=== PATIENT | female | born 1955 | race Caucasian/White ===

== ENCOUNTER 2016-10-26 11:00 | Outpatient (CLI) | payer MEDICAID | END 2016-10-26 11:01 | disposition home or self-care (01) | DX: I10 Essential (primary) hypertension (principal); E03.9 Hypothyroidism, unspecified; K25.3 Acute gastric ulcer without hemorrhage or perforation ==

== ENCOUNTER 2016-12-10 09:09 | Outpatient (CLI) | payer MEDICAID ==
--- NOTE | 2016-12-10 11:59 | XRAY Report ---
UPPER GI SERIES: 12/10/2016 CLINICAL HISTORY: Possible hiatal hernia with reflux. FINDINGS: Air-contrast upper GI series was done. Esophagus demonstrated normal esophageal motility. No significant hiatal hernia was noted. No gastroesophageal reflux was seen. Stomach appears normal without ulcerations or masses. Duodenum including the duodenal bulb and descending portion of the duodenum appear normal. FLUORO TIME: 2 minutes, 54 seconds. 26 images were obtained. IMPRESSION: NORMAL EXAMINATION. JOB #: [id number] EXT JOB #:[id number]
[2016-12-10] MEDS ORDERED: BARIUM SULFATE 135 ML BOTTLE PO ONE (14:23)
[2016-12-10] MEDS ORDERED: BARIUM SULFATE 176 GM BOTTLE PO ONE (14:23)
== END 2016-12-10 09:10 | disposition home or self-care (01) ==
LOC: DI 09:09
PROVIDERS: ATTEND Nurse Practitioner Family
DX: K44.9 Diaphragmatic hernia without obstruction or gangrene (principal); K21.9 Gastro-esophageal reflux disease without esophagitis
CPT/HCPCS: 74246; A9270

== ENCOUNTER 2017-01-11 11:52 | Outpatient (CLI) | payer MEDICAID | END 2017-01-11 11:53 | disposition home or self-care (01) | LOC: LAB.S 11:52 | PROVIDERS: ATTEND Nurse Practitioner Family | DX: K58.9 Irritable bowel syndrome, unspecified (principal) | CPT/HCPCS: 36415; 83516 ==

== ENCOUNTER 2017-02-06 08:00 | Outpatient (CLI) | payer MEDICAID | END 2017-02-06 23:59 | disposition home or self-care (01) | LOC: LAB.R 08:00 | PROVIDERS: ATTEND Nurse Practitioner Family | DX: R19.7 Diarrhea, unspecified (principal) | CPT/HCPCS: 87177; 87209 ==

== ENCOUNTER 2017-02-09 08:00 | Outpatient (CLI) | payer MEDICAID | END 2017-02-09 23:59 | disposition home or self-care (01) | LOC: LAB.R 08:00 | PROVIDERS: ATTEND Nurse Practitioner Family | DX: R19.7 Diarrhea, unspecified (principal) | CPT/HCPCS: 87177; 87209 ==

== ENCOUNTER 2017-02-12 06:00 | Outpatient (CLI) | payer MEDICAID | END 2017-02-12 06:01 | disposition home or self-care (01) | LOC: LAB.R 06:00 | PROVIDERS: ATTEND Nurse Practitioner Family | DX: R19.7 Diarrhea, unspecified (principal) | CPT/HCPCS: 87045; 87046; 87177; 87205; 87209 ==

== ENCOUNTER 2017-07-29 15:19 | Outpatient (CLI) | payer MEDICAID ==
--- NOTE | 2017-07-30 10:42 | XRAY Report ---
DATE OF SERVICE: 07/29/2017 COMPLETE LUMBAR SPINE: 07/29/2017 CLINICAL INDICATION: Acute low back pain. FINDINGS: AP, lateral, oblique, and coned down views of the lumbar spine are compared to previous films of 04/12/2007. There has been interval development of mild degenerative changes from L1 through L5, with stable degenerative changes at L5-S1. Moderate facet arthropathy is present. There is no evidence of interval compression fracture or subluxation. IMPRESSION: DEGENERATIVE DISK AND FACET DISEASE. NO EVIDENCE OF INTERVAL FRACTURE. TD: 07/30/2017 11:41
== END 2017-07-29 15:20 | disposition home or self-care (01) ==
LOC: DI 15:19
PROVIDERS: ATTEND Nurse Practitioner Family
DX: M51.36 Other intervertebral disc degeneration, lumbar region (principal); M47.896 Other spondylosis, lumbar region; M47.897 Other spondylosis, lumbosacral region
CPT/HCPCS: 72110

== ENCOUNTER 2017-08-31 09:21 | Outpatient (CLI) | payer MEDICAID ==
--- NOTE | 2017-09-01 13:31 | Mammography Report ---
DIGITAL SCREENING MAMMOGRAM: 08/31/2017 CLINICAL INDICATION: A 61-year-old, for screening. COMPARISON: 10/2013, 02/2009. TECHNIQUE: Routine CC and MLO projections were obtained of the breasts. Bilateral laterally exaggerated craniocaudal views. FINDINGS: The breasts demonstrate heterogeneously dense fibroglandular parenchyma bilaterally. In the left upper outer central breast, there is a possible new grouping of calcifications. Further evaluation with spot magnification views is recommended. No mammographically suspicious findings are appreciated in the right breast. IMPRESSION: INCOMPLETE EXAMINATION. RECOMMENDATION: ADDITIONAL EVALUATION OF THE LEFT BREAST ABOVE. BIRADS CATEGORY 0-INCOMPLETE. STANDARD QUALIFYING STATEMENTS: 1. This examination was reviewed with the aid of Computer-Aided Detection (CAD). 2. A negative or benign imaging report should not delay biopsy if clinically suspicious findings are present. Consider surgical consultation if warranted. More than 5% of cancers are not identified by imaging. 3. Dense breasts may obscure an underlying neoplasm. TD: 09/01/2017 13:30
== END 2017-08-31 09:22 | disposition home or self-care (01) ==
LOC: DI.S 09:21
PROVIDERS: ATTEND Nurse Practitioner Family
DX: Z12.31 Encounter for screening mammogram for malignant neoplasm of breast (principal); R92.8 Other abnormal and inconclusive findings on diagnostic imaging of breast
CPT/HCPCS: 77067

== ENCOUNTER 2017-09-09 13:14 | Outpatient (CLI) | payer MEDICAID ==
--- NOTE | 2017-09-09 17:36 | Ultrasound Report ---
LEFT BREAST ULTRASOUND: 09/09/2017 CLINICAL INDICATION: Abnormal mammogram. TECHNIQUE: Real-time scanning was performed with district representative static images obtained. FINDINGS: Ultrasound of the left outer breast was performed. At the 3 o'clock position, approximately 3 cm from the nipple, there is a 1.0 x 0.5 x 1.0 cm nodule, with microcalcifications centrally, correlating with the mammographic abnormality. The appearance is suspicious. Biopsy is recommended. The nodule appears to be amenable to ultrasound-guided core needle biopsy. IMPRESSION: SUSPICIOUS SOLID NODULE WITH CALCIFICATIONS, CORRELATING WITH THE MAMMOGRAPHIC ABNORMALITY. RECOMMENDATIONS: Biopsy. The nodule appears amenable to ultrasound-guided core needle biopsy. BIRADS category 4 suspicious abnormality. Results and recommendations discussed with the patient at the time of the procedure, and discussed in person with ARJUN Oshea on 09/09/2017. Biopsy is scheduled for 09/13/2017 at 9:45 a.m. TD: 09/09/2017 17:36
--- NOTE | 2017-09-09 17:44 | Mammography Report ---
DIGITAL DIAGNOSTIC LEFT MAMMOGRAM: 09/09/2017 CLINICAL INDICATION: Calcifications left outer breast on screening. TECHNIQUE: Left true lateral and spot magnification views. COMPARISON: 08/31/2017, 10/27/2013, 03/09/2009, 08/22/2007. FINDINGS: The left breast again demonstrates heterogeneously dense fibroglandular parenchyma. In the left outer anterior breast, there is a group of calcifications. On magnification views, they appear mildly pleomorphic, and there appears to be an associated nodule on one projection, but this is not definitely seen on the second spot magnification view. Please also refer to left breast ultrasound of the same day. IMPRESSION: SUSPICIOUS NODULE WITH CALCIFICATIONS ON ULTRASOUND, CORRELATING WITH THE MAMMOGRAPHIC ABNORMALITY. RECOMMENDATION: Biopsy. The nodule appears to be amenable to ultrasound-guided core needle biopsy. BIRADS category 4 suspicious abnormality. Results and recommendations discussed with the patient at the time of the examination, and discussed in person with ARJUN Oshea on 09/09/2017. Biopsy is scheduled for 09/13/2017 at 9:45 a.m. STANDARD QUALIFYING STATEMENTS 1. This examination was reviewed with the aid of Computed-Aided Detection (CAD). 2. A negative or benign imaging report should not delay biopsy if clinically suspicious findings are present. Consider surgical consultation if warranted. More than 5% of cancers are not identified by imaging. 3. Dense breasts may obscure an underlying neoplasm. TD: 09/09/2017 17:43
== END 2017-09-09 13:15 | disposition home or self-care (01) ==
LOC: DI 13:14
PROVIDERS: ATTEND Nurse Practitioner Family
DX: R92.0 Mammographic microcalcification found on diagnostic imaging of breast (principal); N63.21 Unspecified lump in the left breast, upper outer quadrant; N63.23 Unspecified lump in the left breast, lower outer quadrant
CPT/HCPCS: 76642

== ENCOUNTER 2017-09-13 09:36 | Outpatient (CLI) | payer MEDICAID ==
[2017-09-13] MEDS ORDERED: BUPIVACAINE 0.5%-EPI 1:200000 PF 10 ML VIAL SUBQ STA (11:00)
[2017-09-13] MEDS ORDERED: BUFFERED LIDOCAINE 10 ML SYRINGE IU ONE (11:15)
--- NOTE | 2017-09-13 12:06 | Ultrasound Report ---
ULTRASOUND-GUIDED CORE NEEDLE BIOPSY OF LEFT BREAST: 09/13/2017 CLINICAL INDICATION: Nodule with calcifications left outer breast. FINDINGS: Informed consent was obtained. Using standard aseptic technique, both 1% buffered lidocaine and Sensorcaine were injected into the left breast for local anesthesia. A small mina was made in the skin with a #11 blade. A 12-gauge Celero vacuum-assisted device was used to obtain three specimens. A Celero marker was placed into the biopsy cavity under ultrasound guidance. The patient was taken to a separate mammography machine, and a 2-view mammogram was performed. This documents approximately 2.5 cm clip migration from the biopsy bed. There is adequate conspicuity of residual calcifications at the biopsy bed to allow for future localization, if needed. The wound was dressed and ice applied. The patient was observed for approximately 15 minutes, then was discharged from [facility] in good condition following instructions on wound care and obtaining biopsy results. The tissue was sent for histologic analysis. IMPRESSION: ULTRASOUND-GUIDED BIOPSY OF THE LEFT BREAST. AN ADDENDUM WILL BE MADE TO THIS REPORT WHEN PATHOLOGY IS REVIEWED TO ESTABLISH CONCORDANCE. TD: 09/13/2017 11:58
[2017-09-13 15:17] VITALS: BP 159/61
== END 2017-09-13 09:37 | disposition home or self-care (01) ==
LOC: DI 09:36
PROVIDERS: ATTEND Nurse Practitioner Family
DX: C50.812 Malignant neoplasm of overlapping sites of left female breast (principal); Z17.0 Estrogen receptor positive status [ER+]
CPT/HCPCS: 19083

== ENCOUNTER 2017-11-05 13:37 | Outpatient (CLI) | payer MEDICAID ==
[2017-11-05] MEDS ORDERED: GADOBUTROL 7.5 MMOL/7.5 ML VIAL ONE (14:02)
[2017-11-05] MEDS ORDERED: GADOBUTROL 7.5 MMOL/7.5 ML VIAL IVP ONE (14:47)
--- NOTE | 2017-11-06 13:13 | MRI Report ---
MRI OF BILATERAL BREASTS WITH AND WITHOUT CONTRAST: 11/05/2017 INDICATION: Biopsy-proven left breast cancer. TECHNIQUE: Using a dedicated breast coil, axial precontrast STIR, T1, dynamic postcontrast, axial 3-D images, axial 3-D high resolution images, and post-contrast diffusion weighted images were obtained. 6 mL of Gadavist was administered intravenously. Post-processing with dynamic contrast enhancement analysis and multiplanar reformations were performed with [employer]. FINDINGS: The breasts demonstrate no background enhancement. RIGHT BREAST: There is no evidence of abnormal enhancement or mass lesion. Right axillary lymph nodes appear morphologically normal. LEFT BREAST: The biopsied nodule in the left lower outer central breast is seen on MRI, with enhancement measuring 1.6 x 1.1 x 0.8 cm. The nodule demonstrates rapid enhancement with washout kinetics. There is no evidence of skin, nipple, or chest wall involvement. Left axillary lymph nodes appear morphologically normal. As noted on the post-biopsy, mammogram, the biopsy marker is inferiorly displaced from the lesion. IMPRESSION: BIOPSY-PROVEN BREAST CANCER IN THE LEFT LOWER OUTER QUADRANT, MEASURING 1.6 CM MAXIMAL DIAMETER. NO EVIDENCE OF MULTIFOCAL OR MULTICENTRIC DISEASE. NO SKIN, NIPPLE, OR CHEST WALL INVOLVEMENT. RECOMMENDATIONS: Surgical treatment planning. BIRADS CATEGORY 6: KNOWN MALIGNANCY. The patient has been instructed to obtain results from Dr. Girard in 5 business days. COMMENT: Breast MRI is a highly sensitive examination, and has a cancer detection threshold down to approximately 5 mm; however, it only has moderate specificity. Although breast MRI has a high negative predictive value, appropriate clinical and mammographic followup are always necessary. MRI may miss less angiogenic tumors; therefore, it should not be used to avoid a biopsy which is otherwise clinically indicated. Normal appearing lymph nodes may contain microscopic tumor. Due to prone positioning, the described location of findings may differ from other modalities. TD: 11/06/2017 13:12
== END 2017-11-05 13:38 | disposition home or self-care (01) ==
LOC: DI 13:37
PROVIDERS: ATTEND Surgery
DX: C50.412 Malignant neoplasm of upper-outer quadrant of left female breast (principal); Z17.0 Estrogen receptor positive status [ER+]
CPT/HCPCS: 77059; A9585

== ENCOUNTER 2017-11-09 13:45 | Outpatient (CLI) | payer MEDICAID | END 2017-11-09 23:59 | LOC: RT 13:45 | PROVIDERS: ATTEND Surgery | DX: C50.412 Malignant neoplasm of upper-outer quadrant of left female breast (principal); Z17.0 Estrogen receptor positive status [ER+] | CPT/HCPCS: 93005 ==

== ENCOUNTER 2017-11-12 09:34 | Outpatient (CLI) | payer MEDICAID ==
[2017-11-12 17:46] LABS: HGB - HEMOGLOBIN 13.5 g/dL (12.0-16.0); MEAN CORPUSCULAR HEMOGLOBIN 32.8 pg (27.0-31.0); MEAN CORPUSCULAR HGB CONC 32.5 g/dL (32.0-36.0); MEAN CORPUSCULAR VOLUME 100.8 fL (81.0-99.0); MEAN PLATELET VOLUME 8.8 fL (7.9-10.8); RED BLOOD COUNT 4.13 10^6/uL (4.20-5.40); RED CELL DISTRIBUTION WIDTH 13.2 % (12.0-15.0); WHITE BLOOD COUNT 6.8 x10^3/uL (4.8-10.8)
[2017-11-12 18:29] LABS: BUN - BLOOD UREA NITROGEN 15 mg/dL (6-20); CALCIUM 8.6 mg/dL (8.5-10.3); CARBON DIOXIDE - CO2 26 mmol/L (21-32); CHLORIDE 100 mmol/L (101-111); CREATININE 0.7 mg/dL (0.4-1.0); GFR - MDRD 84 (>89); GLUCOSE 87 mg/dL (70-100); SODIUM 135 mmol/L (135-145)
== END 2017-11-12 09:35 | disposition home or self-care (01) ==
LOC: LAB.F 09:34
PROVIDERS: ATTEND Surgery
DX: I10 Essential (primary) hypertension (principal); E03.9 Hypothyroidism, unspecified; C50.412 Malignant neoplasm of upper-outer quadrant of left female breast; Z17.0 Estrogen receptor positive status [ER+]
CPT/HCPCS: 36415; 80048; 84443; 84481

== ENCOUNTER 2018-01-05 08:57 | Emergency (ER) | payer MEDICAID ==
[2018-01-05] MEDS ORDERED: DEXAMETHASONE 10 MG/ML VIAL PO STA (10:26)
[2018-01-05] MEDS ORDERED: KETOROLAC 60 MG/2 ML VIAL IM STA (10:26)
--- NOTE | 2018-01-05 10:41 | ED Physician Documentation ---
PD HPI Fall - Stated complaint Stated Complaint: GLF - Chief complaint Chief Complaint: General - History obtained from History obtained from: Patient - History of Present Illness Mechanism of injury: Tripped Fall distance: Standing position Where injury occurred: Home Timing - onset: Today Injury(ies) location: Chest, Back Quality of pain: Pain Associated symptoms: No: LOC, AMS, Amnesia, Seizures Symptoms improve with: Rest, Ice Worsens with: Movement, Palpation Contributing factors: No: Anticoagulated Similar symptoms before: Has not had sx before Recently seen: Surgery (mastectomy in November) - Additional information Additional information: 62-year-old female has a new beagle and she was switching leads to a shorter lead and the animal pulled her over against the cage and she was scraped by a dowel that was part of the cage. This was across her back on the left side she has a significant bruise to that area. She is complaining of some pain with any movement and she states that she was able to get into bed and sleep last night and woke up this morning very stiff. She is having some trouble getting a full deep breath because of this and standing up straight because of this. She has not had any nausea or vomiting she has not had any abdominal pain. Review of Systems Constitutional: denies: Fever Eyes: denies: Decreased vision Ears: denies: Ear pain Nose: denies: Congestion Throat: denies: Sore throat Cardiac: reports: Chest pain / pressure. denies: Palpitations, Pedal edema, Calf pain Respiratory: denies: Dyspnea, Cough GI: denies: Abdominal Pain, Nausea, Vomiting : denies: Dysuria, Frequency Skin: denies: Rash Musculoskeletal: reports: Back pain. denies: Neck pain PD PAST MEDICAL HISTORY - Past Medical History Cardiovascular: Hypertension, Arrhythmia Respiratory: Emphysema Endocrine/Autoimmune: HyPOthyroidism GI: None COMPUTATIONAL GENETICIST: Breast cancer : None Psych: Depression, Anxiety, Post traumatic stress disorder Musculoskeletal: Chronic back pain Derm: None - Past Surgical History Past Surgical History: Yes General: Colonoscopy /COMPUTATIONAL GENETICIST: Hysterectomy, Mastectomy, LEEP (Cervical surgery) HEENT: Tonsil/Adenoidectomy - Present Medications Home Medications: Ambulatory Orders Medication Instructions Recorded Confirmed Atenolol 50 mg ORAL 02/15/14 03/10/14 Citalopram Hydrobromide [Celexa] 20 mg PO 02/15/14 03/10/14 Levothyroxine [Synthroid] 100 mcg ORAL 02/15/14 03/10/14 Hydrocodone/Acetaminophen 1 each PO Q6H PRN #15 tablet 03/10/14 [Hydrocodon-Acetaminophen 5-325] HYDROcod/ACETAM 5/325 [Belfast 5/325] 1 - 2 ea PO Q6H PRN #15 tablet 01/05/18 - Allergies Allergies/Adverse Reactions: Allergies Allergy/AdvReac Type Severity Reaction Status Date / Time Sulfa (Sulfonamide Allergy Intermediate Hives Verified 01/05/18 09:22 Antibiotics) Penicillins Allergy Unknown Unknown Verified 01/05/18 09:22 Iodinated Contrast- Oral and Allergy Hives Verified 01/05/18 09:22 IV Dye [Iodinated Contrast Media - IV Dye] - Social History Does the pt smoke?: Yes Smoking Status: Current every day smoker Does the pt drink ETOH?: Yes ETOH Use: Beer Does the pt have substance abuse?: No - POLST Patient has POLST: No PD ED PE NORMAL - Vitals Vital signs reviewed: Yes (hypertensive) - General General: Alert and oriented X 3, Well developed/nourished, Other (The patient is bent at the waist standing appears to be in pain and is moving stiffly and slowly. ) - HEENT HEENT: Atraumatic, PERRL, EOMI - Neck Neck: Supple, no meningeal sign, No bony TTP - Cardiac Cardiac: RRR, No murmur - Respiratory Respiratory: No respiratory distress, Clear bilaterally, Other (There is a large abrasion/ecchymosis to the left posterior chest wall and the area is tender. There is a second bruise to the lower lumbar spine with point tenderness overlying. The left breast is S/P mastectomy and there is a fluid wave.The overlying tissue is not erythematous or stretched. ) - Abdomen Abdomen: Soft, Non tender, No organomegaly - Back Back: No CVA TTP - Derm Derm: Normal color, Warm and dry - Extremities Extremities: No deformity, No edema - Neuro Neuro: No motor deficit, No sensory deficit Eye Opening: Spontaneous Motor: Obeys Commands Verbal: Oriented GCS Score: 15 - Psych Psych: Normal mood, Normal affect Results - Vitals Vitals: Vital Signs - 24 hr 06/20/18 06/20/18 06/20/18 09:08 11:42 13:06 Temperature 36.6 C 36.9 C 37 C Heart Rate 87 88 96 Respiratory 20 16 18 Rate Blood Pressure 157/53 H 147/82 H 168/90 H O2 Saturation 95 95 92 Oxygen O2 Source Room air - Rads (name of study) left ribs with PA chest Radiology: Prelim report reviewed (Impression: No radiographically apparent acute abnormality in the chest or evidence of rib fracture. No significant change from prior allowing for differences in technique.), EMP read indepedently , See rad report lumbar spine Radiology: Prelim report reviewed (Impression: No acute fracture or subluxation in the lumbar spine no significant change from prior.), EMP read indepedently, See rad report Procedures - General procedure General procedure: Seroma drainage left breast.: Without the use of anesthetic the left breast is cleansed with chlorhexidine draped and a #18 needle is used to drain 60 mL's of straw-colored clear fluid. This has some relief of pain for the patient. PD MEDICAL DECISION MAKING - ED course Complexity details: reviewed old records, reviewed results, re-evaluated patient , considered differential, d/w patient, d/w family ED course: 62-year-old female the recent mastectomy has had a fall tripped up her dog and she has a contusion to her back and chest wall. In addition she has a seroma to the left breast and she is requesting we drain some fluid out of it today. She has had some fluid drained out of it twice previously by her surgeon and he is planning on replacing the drain in 1 week. She states that it has been 1 week since she drained it and the fluid has reaccumulated. There is some pain associated with it and she would like to have this drained. This was drained here in the emergency department of 60 mL's of sterile serosal fluid. - Sepsis Event Vital Signs: Vital Signs - 24 hr 01/05/18 01/05/18 01/05/18 09:08 11:42 13:06 Temperature 36.6 C 36.9 C 37 C Heart Rate 87 88 96 Respiratory 20 16 18 Rate Blood Pressure 157/53 H 147/82 H 168/90 H O2 Saturation 95 95 92 Oxygen O2 Source Room air Departure - Departure Disposition: 01 Home, Self Care Clinical Impression: Seroma of breast Back contusion Qualifiers: Encounter type: initial encounter Laterality: left Qualified Code(s): S20.222A - Contusion of left back wall of thorax, initial encounter Contusion, chest wall Qualifiers: Encounter type: initial encounter Laterality: right Qualified Code(s): S20.211A - Contusion of right front wall of thorax, initial encounter Condition: Stable Instructions: ED Contusion Back, ED Contusion Chest Wall, ED Seroma Post Op Follow-Up: Rosemarie Troncoso ARNP [Primary Care Provider] - Prescriptions: HYDROcod/ACETAM 5/325 [Belfast 5/325] 1 - 2 ea PO Q6H PRN #15 tablet PRN Reason: Pain
--- NOTE | 2018-01-05 11:16 | XRAY Report ---
Procedure Date: 01/05/2018 Accession Number: [id number] / [id number] Procedure: XR - Ribs w/PA Chest LT CPT Code: FULL RESULT: EXAM: LEFT RIB RADIOGRAPHY EXAM DATE: 01/05/2018 10:57 AM. CLINICAL HISTORY: Fall posterior lower rib contusion. Pain. COMPARISON: Two-view chest radiography 08/31/2014. TECHNIQUE: 1 view of the chest and 2 views of the ribs. FINDINGS: Bones: No fracture or bone lesion. Lungs: No focal consolidation. No pneumothorax. No pleural effusions. Probable hyperinflation. Mediastinum: Heart and mediastinal contours are unremarkable. Other: Left breast surgical clips. IMPRESSION: No radiographically apparent acute abnormality in the chest or evidence of rib fracture. No significant change from prior allowing for differences in technique. RADIA
[2018-01-05] MEDS ORDERED: HYDROcod/ACETAM 5/325 MG TABLET PO STA (12:05)
--- NOTE | 2018-01-05 12:38 | XRAY Report ---
Procedure Date: 01/05/2018 Accession Number: [id number] / [id number] Procedure: XR - Lumbar Spine 2 View CPT Code: FULL RESULT: EXAM: LUMBOSACRAL SPINE RADIOGRAPHY EXAM DATE: 01/05/2018 12:27 PM. CLINICAL HISTORY: Fall lower back contusion. COMPARISONS: 07/29/2017. TECHNIQUE: 3 views. FINDINGS: Alignment: No scoliosis. Minimal, grade 1, anterolisthesis of L4 on L5 is similar to prior and likely degenerative. No other spondylolisthesis. Bones: Five [id number] lumbar vertebral bodies are present. No fractures or bone lesions. Disks: Mild decreased disk height at L4-L5. Moderate decreased disk height at the remaining levels. Facets: Moderate multilevel facet arthropathy. Sacroiliac Joints: Unremarkable. Soft Tissues: No significant abnormality. IMPRESSION: No acute fracture or subluxation in the lumbar spine. No significant change from prior. RADIA
[2018-01-05 13:07] VITALS: BP 168/90
== END 2018-01-05 13:29 | disposition home or self-care (01) ==
LOC: ED 08:57
DX: S20.02XA Contusion of left breast, initial encounter (principal); S20.222A Contusion of left back wall of thorax, initial encounter; W54.1XXA Struck by dog, initial encounter; Y92.009 Unspecified place in unspecified non-institutional (private) residence as the place of occurrence of the external cause; I10 Essential (primary) hypertension; E03.9 Hypothyroidism, unspecified; Z85.3 Personal history of malignant neoplasm of breast; Z90.10 Acquired absence of unspecified breast and nipple
CPT/HCPCS: 71101; 72100; 96372; 99283; A9270

== ENCOUNTER 2018-04-06 10:18 | Outpatient (CLI) | payer MEDICAID ==
[2018-04-06 17:29] LABS: BASOPHILS # (AUTO) 0.1 10^3/uL (0.0-0.1); BASOPHILS % (AUTO) 0.7 %; EOSINOPHILS # (AUTO) 0.1 10^3/uL (0.0-0.7); EOSINOPHILS % (AUTO) 1.5 %; HGB - HEMOGLOBIN 14.1 g/dL (12.0-16.0); LYMPHOCYTES # (AUTO) 1.6 10^3/uL (1.5-3.5); LYMPHOCYTES % (AUTO) 19.8 %; MEAN CORPUSCULAR HGB CONC 33.8 g/dL (32.0-36.0); MEAN CORPUSCULAR VOLUME 100.5 fL (81.0-99.0); MONOCYTES # (AUTO) 0.7 10^3/uL (0.0-1.0); MONOCYTES % (AUTO) 8.4 %; NEUTROPHILS # (AUTO) 5.6 10^3/uL (1.5-6.6); NEUTROPHILS % (AUTO) 69.6 %; PLT - PLATELET COUNT 320 10^3/uL (130-450); RED BLOOD COUNT 4.15 10^6/uL (4.20-5.40)
[2018-04-06 17:43] LABS: ALBUMIN 4.1 g/dL (3.2-5.5); ALBUMIN/GLOBULIN RATIO 1.3 (1.0-2.2); BILIRUBIN,TOTAL 0.6 mg/dL (0.2-1.0); CALCIUM 8.8 mg/dL (8.5-10.3); CREATININE 0.6 mg/dL (0.4-1.0); TOTAL PROTEIN 7.2 g/dL (6.7-8.2)
== END 2018-04-06 10:19 | disposition home or self-care (01) ==
LOC: LAB.F 10:18
PROVIDERS: ATTEND Internal Medicine
DX: C50.119 Malignant neoplasm of central portion of unspecified female breast (principal)
CPT/HCPCS: 36415; 80053; 85025

== ENCOUNTER 2018-07-14 15:20 | Outpatient (CLI) | payer MEDICAID ==
[2018-07-14 17:41] LABS: BASOPHILS # (AUTO) 0.1 10^3/uL (0.0-0.1); EOSINOPHILS # (AUTO) 0.1 10^3/uL (0.0-0.7); EOSINOPHILS % (AUTO) 1.5 %; HGB - HEMOGLOBIN 14.6 g/dL (12.0-16.0); LYMPHOCYTES # (AUTO) 1.7 10^3/uL (1.5-3.5); LYMPHOCYTES % (AUTO) 25.8 %; MEAN CORPUSCULAR HEMOGLOBIN 33.4 pg (27.0-31.0); MEAN CORPUSCULAR HGB CONC 32.9 g/dL (32.0-36.0); MEAN CORPUSCULAR VOLUME 101.3 fL (81.0-99.0); MONOCYTES # (AUTO) 0.5 10^3/uL (0.0-1.0); MONOCYTES % (AUTO) 8.3 %; NEUTROPHILS # (AUTO) 4.1 10^3/uL (1.5-6.6); NEUTROPHILS % (AUTO) 63.4 %; PLT - PLATELET COUNT 339 10^3/uL (130-450); RED BLOOD COUNT 4.37 10^6/uL (4.20-5.40); RED CELL DISTRIBUTION WIDTH 12.8 % (12.0-15.0); WHITE BLOOD COUNT 6.5 x10^3/uL (4.8-10.8)
[2018-07-14 17:58] LABS: ALBUMIN 4.2 g/dL (3.2-5.5); ALBUMIN/GLOBULIN RATIO 1.3 (1.0-2.2); ALKALINE PHOSPHATASE 84 IU/L (42-121); ALT ALANINE AMINOTRANSFERASE 16 IU/L (10-60); AST ASPARTATE AMINOTRANSFERASE 20 IU/L (10-42); BILIRUBIN,TOTAL 0.7 mg/dL (0.2-1.0); BUN - BLOOD UREA NITROGEN 14 mg/dL (6-20); CALCIUM 9.3 mg/dL (8.5-10.3); CARBON DIOXIDE - CO2 26 mmol/L (21-32); CHLORIDE 101 mmol/L (101-111); CHOL/HDL RATIO 2.7 (<4.4); CHOLESTEROL 257 mg/dL; CREATININE 0.7 mg/dL (0.4-1.0); GFR - MDRD 84 (>89); GLUCOSE 94 mg/dL (70-100); HDL CHOLESTEROL 95 mg/dL; LDL CHOLESTEROL,CALCULATED 137 mg/dL; LDL/HDL RATIO 1.4 (<4.4); SODIUM 137 mmol/L (135-145); TOTAL PROTEIN 7.5 g/dL (6.7-8.2); VLDL CHOLESTEROL 25 mg/dL
[2018-07-14 18:12] LABS: THYROID STIMULATING HORMONE 2.22 uIU/mL (0.34-5.60)
[2018-07-14 18:14] LABS: FREE T4 (FREE THYROXINE) 1.12 ng/dL (0.58-1.64)
== END 2018-07-14 15:21 | disposition home or self-care (01) ==
LOC: LAB.F 15:20
PROVIDERS: ATTEND Nurse Practitioner Family
DX: E03.9 Hypothyroidism, unspecified (principal); I10 Essential (primary) hypertension; Z13.220 Encounter for screening for lipoid disorders
CPT/HCPCS: 36415; 80050; 80061; 83721; 84439; 84481

== ENCOUNTER 2019-03-23 13:22 | Outpatient (CLI) | payer MEDICARE ==
--- NOTE | 2019-03-23 15:08 | Mammography Report ---
Reason: SCREENING Procedure Date: 03/23/2019 Accession Number: [id number] / [id number] Procedure: [facility]I - Screening Mammo Right w/Juwan CPT Code: FULL RESULT: EXAM: Screening Mammo Right w/Juwan DATE: 03/23/2019 1:46 PM CLINICAL HISTORY: Status post left mastectomy. TECHNIQUE: (R) - Right CC and MLO views were obtained. COMPARISON: 08/31/2017 PARENCHYMAL PATTERN: (VD) - The breasts demonstrate extremely dense parenchyma bilaterally, limiting the sensitivity of mammography. FINDINGS: Interval left mastectomy. There are no suspicious masses, calcifications, skin thickening or areas of distortion on the right. IMPRESSION: Negative right examination. BI-RADS category 1. RECOMMENDATION: (ANNUAL) - Recommend routine annual screening mammography. BI-RADS CATEGORY: (1) - Negative. STANDARD QUALIFYING STATEMENTS: 1. This examination was not reviewed with the aid of Computer-Aided Detection (CAD). 2. A negative or benign imaging report should not preclude biopsy if clinically suspicious findings are present. 3. Dense breasts may obscure an underlying neoplasm. 4. This examination was reviewed with the aid of 3D breast imaging (tomosynthesis).
== END 2019-03-23 13:23 | disposition home or self-care (01) ==
LOC: DI 13:22
PROVIDERS: ATTEND Internal Medicine
DX: Z12.31 Encounter for screening mammogram for malignant neoplasm of breast (principal); Z90.12 Acquired absence of left breast and nipple
CPT/HCPCS: 77063

== ENCOUNTER 2019-08-25 14:10 | Outpatient (CLI) | payer MEDICARE ==
[2019-08-25 17:56] LABS: ALBUMIN 3.9 g/dL (3.2-5.5); ALBUMIN/GLOBULIN RATIO 1.3 (1.0-2.2); BILIRUBIN,TOTAL 0.8 mg/dL (0.2-1.0); CALCIUM 8.6 mg/dL (8.5-10.3); CREATININE 0.7 mg/dL (0.4-1.0)
== END 2019-08-25 14:11 | disposition home or self-care (01) ==
LOC: LAB.S 14:10
PROVIDERS: ATTEND Internal Medicine
DX: I10 Essential (primary) hypertension (principal); E03.9 Hypothyroidism, unspecified
CPT/HCPCS: 36415; 80053; 84443

== ENCOUNTER 2020-08-22 08:00 | Outpatient (CLI) | payer MEDICARE, OTHER ==
--- NOTE | 2020-08-22 16:18 | XRAY Report ---
PROCEDURE: Lumbar Spine 2 View INDICATIONS: LOW BACK PAIN TECHNIQUE: 3 views of the lumbar spine were acquired. COMPARISON: 01/05/2018 lumbar spine plain films FINDINGS: Bones: 5 [id number] vertebrae are present. There is mild, grade 1 anterolisthesis of L4 on L5. Mild grade 1 retrolisthesis of L1 on L2 and L2 on L3. Mild grade 1 retrolisthesis of L5 on S1. Multi level endplate osteophyte formation and disc space narrowing. Facet hypertrophy throughout the mid an d lower lumbar spine. No vertebral body compression fractures. No suspicious bony lesions. Soft tissues: Overlying bowel gas pattern is normal. No suspicious soft tissue calcifications. IMPRESSION: 1. Multilevel degenerative disc and facet disease. 2. No acute fracture. No osseous lesion. If symptoms and/or clinical suspicion for pathology continue , further assessment with repeat plain films, or advanced imaging (e.g., CT, MRI, or bone scan) is re commended for further assessment. Reviewed by: Zakia Viveros MD on 08/22/2020 4:17 PM PST Approved by: Zakia Viveros MD on 08/22/2020 4:17 PM PST Station ID: [id number]
== END 2020-08-22 23:59 | disposition home or self-care (01) ==
LOC: DI.S 08:00
PROVIDERS: ATTEND Physician Assistant Medical
DX: M51.36 Other intervertebral disc degeneration, lumbar region (principal); I10 Essential (primary) hypertension; E78.5 Hyperlipidemia, unspecified; E03.9 Hypothyroidism, unspecified
CPT/HCPCS: 36415; 80053; 80061; 83721; 84443; 85025

== ENCOUNTER 2020-08-22 14:55 | Outpatient (CLI) | payer MEDICARE ==
[2020-08-22 19:59] LABS: BASOPHILS # (AUTO) 0.1 10^3/uL (0.0-0.1); EOSINOPHILS # (AUTO) 0.2 10^3/uL (0.0-0.7); EOSINOPHILS % (AUTO) 2.4 %; HCT - HEMATOCRIT 46.5 % (37.0-47.0); HGB - HEMOGLOBIN 14.8 g/dL (12.0-16.0); LYMPHOCYTES # (AUTO) 2.3 10^3/uL (1.5-3.5); LYMPHOCYTES % (AUTO) 28.2 %; MEAN CORPUSCULAR HEMOGLOBIN 33.2 pg (27.0-31.0); MEAN CORPUSCULAR HGB CONC 31.8 g/dL (32.0-36.0); MEAN CORPUSCULAR VOLUME 104.3 fL (81.0-99.0); MONOCYTES # (AUTO) 0.6 10^3/uL (0.0-1.0); MONOCYTES % (AUTO) 7.1 %; NEUTROPHILS % (AUTO) 61.1 %; PLT - PLATELET COUNT 353 10^3/uL (130-450); RED BLOOD COUNT 4.46 10^6/uL (4.20-5.40); RED CELL DISTRIBUTION WIDTH 12.6 % (12.0-15.0); WHITE BLOOD COUNT 8.3 x10^3/uL (4.8-10.8)
[2020-08-22 20:18] LABS: ALBUMIN 4.4 g/dL (3.2-5.5); ALBUMIN/GLOBULIN RATIO 1.4 (1.0-2.2); ALKALINE PHOSPHATASE 85 IU/L (42-121); ALT ALANINE AMINOTRANSFERASE 18 IU/L (10-60); AST ASPARTATE AMINOTRANSFERASE 21 IU/L (10-42); BILIRUBIN,TOTAL 0.6 mg/dL (0.2-1.0); BUN - BLOOD UREA NITROGEN 17 mg/dL (6-20); CALCIUM 9.7 mg/dL (8.5-10.3); CARBON DIOXIDE - CO2 27 mmol/L (21-32); CHLORIDE 101 mmol/L (101-111); CHOL/HDL RATIO 2.9 (<4.4); CHOLESTEROL 282 mg/dL; CREATININE 0.7 mg/dL (0.4-1.0); GFR - MDRD 84 (>89); GLUCOSE 86 mg/dL (70-100); HDL CHOLESTEROL 98 mg/dL; LDL CHOLESTEROL,CALCULATED 166 mg/dL; LDL/HDL RATIO 1.7 (<4.4); POTASSIUM 4.1 mmol/L (3.5-5.0); SODIUM 141 mmol/L (135-145); TOTAL PROTEIN 7.6 g/dL (6.7-8.2); TRIGLYCERIDES 89 mg/dL; VLDL CHOLESTEROL 18 mg/dL
[2020-08-22 20:29] LABS: THYROID STIMULATING HORMONE 4.65 uIU/mL (0.34-5.60)
== END 2020-08-22 14:56 | disposition home or self-care (01) ==
LOC: LAB.S 14:55
PROVIDERS: ATTEND Internal Medicine
DX: I10 Essential (primary) hypertension (principal); E03.9 Hypothyroidism, unspecified; E78.5 Hyperlipidemia, unspecified
CPT/HCPCS: 36415; 80053; 80061; 83721; 84443; 85025

== ENCOUNTER 2021-02-21 13:31 | Outpatient (CLI) | payer MEDICARE ==
[2021-02-21 19:44] LABS: BASOPHILS # (AUTO) 0.1 10^3/uL (0.0-0.1); BASOPHILS % (AUTO) 1.2 %; EOSINOPHILS # (AUTO) 0.3 10^3/uL (0.0-0.7); EOSINOPHILS % (AUTO) 3.5 %; HCT - HEMATOCRIT 44.8 % (37.0-47.0); HGB - HEMOGLOBIN 14.3 g/dL (12.0-16.0); LYMPHOCYTES # (AUTO) 2.3 10^3/uL (1.5-3.5); LYMPHOCYTES % (AUTO) 30.8 %; MEAN CORPUSCULAR HGB CONC 31.9 g/dL (32.0-36.0); MEAN CORPUSCULAR VOLUME 106.4 fL (81.0-99.0); MEAN PLATELET VOLUME 10.3 fL (7.9-10.8); MONOCYTES # (AUTO) 0.6 10^3/uL (0.0-1.0); MONOCYTES % (AUTO) 8.1 %; NEUTROPHILS # (AUTO) 4.2 10^3/uL (1.5-6.6); NEUTROPHILS % (AUTO) 56.1 %; PLT - PLATELET COUNT 368 10^3/uL (130-450); RED BLOOD COUNT 4.21 10^6/uL (4.20-5.40); RED CELL DISTRIBUTION WIDTH 12.9 % (12.0-15.0); WHITE BLOOD COUNT 7.5 x10^3/uL (4.8-10.8)
[2021-02-21 20:36] LABS: ALBUMIN 4.3 g/dL (3.2-5.5); ALBUMIN/GLOBULIN RATIO 1.3 (1.0-2.2); ALKALINE PHOSPHATASE 75 IU/L (42-121); ALT ALANINE AMINOTRANSFERASE 19 IU/L (10-60); AST ASPARTATE AMINOTRANSFERASE 21 IU/L (10-42); BILIRUBIN,TOTAL 0.9 mg/dL (0.2-1.0); BUN - BLOOD UREA NITROGEN 14 mg/dL (6-20); CALCIUM 9.2 mg/dL (8.5-10.3); CARBON DIOXIDE - CO2 28 mmol/L (21-32); CHLORIDE 101 mmol/L (101-111); CHOL/HDL RATIO 2.5 (<4.4); CHOLESTEROL 266 mg/dL; CREATININE 0.7 mg/dL (0.4-1.0); GFR - MDRD 83 (>89); GLUCOSE 91 mg/dL (70-100); HDL CHOLESTEROL 107 mg/dL; LDL CHOLESTEROL,CALCULATED 146 mg/dL; LDL/HDL RATIO 1.4 (<4.4); POTASSIUM 4.5 mmol/L (3.5-5.0); SODIUM 136 mmol/L (135-145); TOTAL PROTEIN 7.5 g/dL (6.7-8.2); TRIGLYCERIDES 66 mg/dL; VLDL CHOLESTEROL 13 mg/dL
== END 2021-02-21 13:32 | disposition home or self-care (01) ==
LOC: LAB.S 13:31
PROVIDERS: ATTEND Internal Medicine
DX: I10 Essential (primary) hypertension (principal); E78.5 Hyperlipidemia, unspecified
CPT/HCPCS: 36415; 80053; 80061; 83721; 85025

== ENCOUNTER 2021-08-22 13:53 | Outpatient (CLI) | payer MEDICARE ==
[2021-08-22 20:01] LABS: BASOPHILS # (AUTO) 0.1 10^3/uL (0.0-0.1); BASOPHILS % (AUTO) 0.7 %; EOSINOPHILS # (AUTO) 0.1 10^3/uL (0.0-0.7); EOSINOPHILS % (AUTO) 1.5 %; HCT - HEMATOCRIT 44.1 % (37.0-47.0); LYMPHOCYTES # (AUTO) 2.2 10^3/uL (1.5-3.5); MEAN CORPUSCULAR HEMOGLOBIN 32.9 pg (27.0-31.0); MEAN CORPUSCULAR HGB CONC 31.7 g/dL (32.0-36.0); MEAN CORPUSCULAR VOLUME 103.8 fL (81.0-99.0); MEAN PLATELET VOLUME 10.5 fL (7.9-10.8); MONOCYTES # (AUTO) 0.6 10^3/uL (0.0-1.0); MONOCYTES % (AUTO) 8.7 %; NEUTROPHILS # (AUTO) 3.9 10^3/uL (1.5-6.6); NEUTROPHILS % (AUTO) 56.7 %; PLT - PLATELET COUNT 323 10^3/uL (130-450); RED BLOOD COUNT 4.25 10^6/uL (4.20-5.40); RED CELL DISTRIBUTION WIDTH 12.3 % (12.0-15.0); WHITE BLOOD COUNT 6.8 x10^3/uL (4.8-10.8)
[2021-08-22 20:20] LABS: ALBUMIN 4.1 g/dL (3.2-5.5); ALBUMIN/GLOBULIN RATIO 1.3 (1.0-2.2); ALKALINE PHOSPHATASE 74 IU/L (42-121); ALT ALANINE AMINOTRANSFERASE 20 IU/L (10-60); AST ASPARTATE AMINOTRANSFERASE 22 IU/L (10-42); BILIRUBIN,TOTAL 0.8 mg/dL (0.2-1.0); BUN - BLOOD UREA NITROGEN 11 mg/dL (6-20); CALCIUM 8.9 mg/dL (8.5-10.3); CARBON DIOXIDE - CO2 25 mmol/L (21-32); CHLORIDE 103 mmol/L (101-111); CHOL/HDL RATIO 2.6 (<4.4); CHOLESTEROL 258 mg/dL; CREATININE 0.7 mg/dL (0.4-1.0); GFR - MDRD 83 (>89); GLUCOSE 88 mg/dL (70-100); HDL CHOLESTEROL 99 mg/dL; LDL CHOLESTEROL,CALCULATED 139 mg/dL; LDL/HDL RATIO 1.4 (<4.4); POTASSIUM 3.6 mmol/L (3.5-5.0); SODIUM 139 mmol/L (135-145); TOTAL PROTEIN 7.3 g/dL (6.7-8.2); TRIGLYCERIDES 100 mg/dL; VLDL CHOLESTEROL 20 mg/dL
[2021-08-22 20:55] LABS: THYROID STIMULATING HORMONE 4.19 uIU/mL (0.34-5.60)
== END 2021-08-22 13:54 | disposition home or self-care (01) ==
LOC: LAB.S 13:53
PROVIDERS: ATTEND Internal Medicine
DX: I10 Essential (primary) hypertension (principal); E03.9 Hypothyroidism, unspecified
CPT/HCPCS: 36415; 80053; 80061; 83721; 84443; 85025

== ENCOUNTER 2021-09-01 12:46 | Outpatient (CLI) | payer MEDICARE ==
--- NOTE | 2021-09-01 16:32 | XRAY Report ---
PROCEDURE: Foot 3 View RT INDICATIONS: RIGHT TOE PAIN TECHNIQUE: 3 views of the foot were acquired. COMPARISON: None FINDINGS: Bones: No fractures or dislocations. Osteoarthritic changes throughout right foot are seen with carlos nt space narrowing, subchondral sclerosis and small marginal osteophyte formation. Diffuse osteopenia is also noted. No suspicious bony lesions. Soft tissues: Corticated calcifications adjacent to medial aspect of first metatarsal head likely re present old injury. No tibiotalar joint effusion. Achilles tendon appears normal. IMPRESSION: Right foot osteoarthritis. No acute fracture or dislocation. Likely old injury involving medial aspec t of first metatarsal head. Osteopenia. Reviewed by: Paco Tolbert MD on 09/01/2021 4:31 PM PST Approved by: Paco Tolbert MD on 09/01/2021 4:31 PM PST Station ID: [id number]
== END 2021-09-01 12:47 | disposition home or self-care (01) ==
LOC: DI.S 12:46
PROVIDERS: ATTEND Internal Medicine
DX: M19.071 Primary osteoarthritis, right ankle and foot (principal); M85.88 Other specified disorders of bone density and structure, other site

== ENCOUNTER 2021-12-03 08:00 | Outpatient (CLI) | payer MEDICARE | END 2021-12-03 23:59 | disposition home or self-care (01) | LOC: LAB.S 08:00 | PROVIDERS: ATTEND Physician Assistant Medical | DX: R09.89 Other specified symptoms and signs involving the circulatory and respiratory systems (principal); R05.1 Acute cough; Z20.822 Contact with and (suspected) exposure to COVID-19 ==

== ENCOUNTER 2022-01-06 14:12 | Outpatient (CLI) | payer MEDICARE ==
--- NOTE | 2022-01-07 07:55 | Mammography Report ---
UNILATERAL RIGHT DIGITAL SCREENING MAMMOGRAM 3D/2D WITH EXAGGERATED CC: 01/06/2022 CLINICAL: Routine screening. Personal history of left breast cancer. Comparison is made to exams dated: 03/23/2019 mammogram, 09/09/2017 mammogram, and 08/31/2017 mammogram - [facility]. The tissue of right breast is extremely dense, which lowers the sens itivity of mammography. No significant masses, calcifications, or other findings are seen in the breast. There has been no significant interval change. IMPRESSION: NEGATIVE There is no mammographic evidence of malignancy. A 1 year screening mammogram is recommended. This exam was interpreted at Station ID: [id number]. NOTE: For mammograms, a report in lay terms will be sent to the patient. Approximately 15% of breast malignancies will not be visualized mammographically. In the management of a palpable breast mass, a negative mammogram must not discourage biopsy of a clinically suspicious lesion. Electronically Signed By: Shaun Tsai M.D. ar/penrad:01/06/2022 16:37:30 ACR BI-RADS Category 1: Negative 3341F PARENCHYMAL PATTERN: (VD) - The breast(s) demonstrate(s) extremely dense parenchyma, limiting the sen sitivity of mammography. BI-RADS CATEGORY: (1) - 1 RECOMMENDATION: (ANNUAL) - Recommend routine annual screening mammography. [id number] 1 year screening LATERALITY: (B)
== END 2022-01-06 14:13 | disposition home or self-care (01) ==
LOC: DI.S 14:12
PROVIDERS: ATTEND Physician Assistant
DX: Z12.31 Encounter for screening mammogram for malignant neoplasm of breast (principal); Z80.3 Family history of malignant neoplasm of breast

== ENCOUNTER 2022-02-04 13:40 | Outpatient (CLI) | payer MEDICARE ==
[2022-02-04 13:59] LABS: BASOPHILS # (AUTO) 0.1 10^3/uL (0.0-0.1); BASOPHILS % (AUTO) 0.8 %; EOSINOPHILS # (AUTO) 0.2 10^3/uL (0.0-0.7); EOSINOPHILS % (AUTO) 2.3 %; HCT - HEMATOCRIT 42.2 % (37.0-47.0); HGB - HEMOGLOBIN 13.7 g/dL (12.0-16.0); LYMPHOCYTES # (AUTO) 2.2 10^3/uL (1.5-3.5); LYMPHOCYTES % (AUTO) 23.5 %; MEAN CORPUSCULAR HEMOGLOBIN 33.7 pg (27.0-31.0); MEAN CORPUSCULAR HGB CONC 32.5 g/dL (32.0-36.0); MEAN CORPUSCULAR VOLUME 103.9 fL (81.0-99.0); MEAN PLATELET VOLUME 9.9 fL (7.9-10.8); MONOCYTES # (AUTO) 0.7 10^3/uL (0.0-1.0); MONOCYTES % (AUTO) 8.1 %; NEUTROPHILS % (AUTO) 64.9 %; PLT - PLATELET COUNT 311 10^3/uL (130-450); RED BLOOD COUNT 4.06 10^6/uL (4.20-5.40); RED CELL DISTRIBUTION WIDTH 12.9 % (12.0-15.0); WHITE BLOOD COUNT 9.2 x10^3/uL (4.8-10.8)
[2022-02-04 14:18] LABS: ALBUMIN 4.1 g/dL (3.2-5.5); ALBUMIN/GLOBULIN RATIO 1.5 (1.0-2.2); BILIRUBIN,TOTAL 0.7 mg/dL (0.2-1.0); CALCIUM 8.7 mg/dL (8.5-10.3); CREATININE 0.8 mg/dL (0.4-1.0); POTASSIUM 3.8 mmol/L (3.5-5.0); TOTAL PROTEIN 6.9 g/dL (6.7-8.2)
[2022-02-04 14:26] LABS: THYROID STIMULATING HORMONE 3.89 uIU/mL (0.34-5.60)
== END 2022-02-04 13:41 | disposition home or self-care (01) ==
LOC: LAB 13:40
PROVIDERS: ATTEND Physician Assistant
DX: R10.11 Right upper quadrant pain (principal); Z51.81 Encounter for therapeutic drug level monitoring
CPT/HCPCS: 36415; 80053; 84443; 85025

== ENCOUNTER 2022-02-09 15:59 | Outpatient (CLI) | payer MEDICARE ==
--- NOTE | 2022-02-10 16:22 | Ultrasound Report ---
PROCEDURE: Abdomen Limited INDICATIONS: RUQ ABD PAIN TECHNIQUE: Real-time scanning was performed of the abdominal and retroperitoneal organs, with image documentatio n. COMPARISON: None. FINDINGS: Liver: Liver is normal in size and homogeneous in echotexture. Gallbladder: No stones. Wall thickness is normal measuring 2.3 mm. Biliary ducts: Intrahepatic bile ducts are non-dilated. Extrahepatic bile duct caliber measures 6.6 , 28.1 mm. Normal is 6-7 mm or less in diameter, or 10 mm or less post-cholecystectomy. Pancreas: Visualized portions of the pancreas are sonographically normal. Kidneys: Right kidney measures 10 cm long. No hydronephrosis or nephrolithiasis. No solid masses. IVC: Intrahepatic inferior vena cava is patent. Miscellaneous: No free abdominal fluid. IMPRESSION: Z unremarkable. Slight prominence of the distal common bile duct. This is overall nonspecific. Reviewed by: Mary Velasquez MD on 02/10/2022 4:21 PM PDT Approved by: Mary Velasquez MD on 02/10/2022 4:21 PM PDT Station ID: [id number]
== END 2022-02-09 16:00 | disposition home or self-care (01) ==
LOC: DI 15:59
PROVIDERS: ATTEND Physician Assistant
DX: R10.11 Right upper quadrant pain (principal)

== ENCOUNTER 2022-04-13 09:20 | Inpatient (IN) | payer MEDICARE ==
[2022-04-13 10:09] LABS: BASOPHILS # (AUTO) 0.1 10^3/uL (0.0-0.1); BASOPHILS % (AUTO) 1.1 %; EOSINOPHILS # (AUTO) 0.3 10^3/uL (0.0-0.7); EOSINOPHILS % (AUTO) 4.4 %; HCT - HEMATOCRIT 42.1 % (37.0-47.0); LYMPHOCYTES # (AUTO) 1.8 10^3/uL (1.5-3.5); LYMPHOCYTES % (AUTO) 25.6 %; MEAN CORPUSCULAR HEMOGLOBIN 34.1 pg (27.0-31.0); MEAN CORPUSCULAR HGB CONC 33.3 g/dL (32.0-36.0); MEAN CORPUSCULAR VOLUME 102.4 fL (81.0-99.0); MEAN PLATELET VOLUME 9.8 fL (7.9-10.8); MONOCYTES # (AUTO) 0.6 10^3/uL (0.0-1.0); MONOCYTES % (AUTO) 7.6 %; NEUTROPHILS # (AUTO) 4.4 10^3/uL (1.5-6.6); PLT - PLATELET COUNT 332 10^3/uL (130-450); RED BLOOD COUNT 4.11 10^6/uL (4.20-5.40); RED CELL DISTRIBUTION WIDTH 12.6 % (12.0-15.0); WHITE BLOOD COUNT 7.2 x10^3/uL (4.8-10.8)
[2022-04-13 10:23] LABS: ALBUMIN 4.2 g/dL (3.2-5.5); ALBUMIN/GLOBULIN RATIO 1.4 (1.0-2.2); BILIRUBIN,TOTAL 0.3 mg/dL (0.2-1.0); CALCIUM 9.1 mg/dL (8.5-10.3); CREATININE 0.9 mg/dL (0.4-1.0); POTASSIUM 4.7 mmol/L (3.5-5.0); TOTAL PROTEIN 7.2 g/dL (6.7-8.2)
--- NOTE | 2022-04-13 10:26 | XRAY Report ---
PROCEDURE: Chest 1 View X-Ray INDICATIONS: SOA TECHNIQUE: One view of the chest was acquired. COMPARISON: 01/05/2018 FINDINGS: Surgical changes and devices: Tiny surgical clips are seen in the region of left breast suggest clin ical correlation. Lungs and pleura: No pleural effusions or pneumothorax. Increased interstitial lung markings are not ed. No focal infiltrate. Mediastinum: Mediastinal contours appear normal. Heart size is normal. Bones and chest wall: No suspicious bony lesions. Overlying soft tissues appear unremarkable. IMPRESSION: Increased interstitial lung markings bilaterally which may represent mild interstitial pulmonary srinivas a versus pneumonitis. No definite focal infiltrate. No pleural effusion or pneumothorax. Reviewed by: Paco Tolbert MD on 04/13/2022 10:25 AM PDT Approved by: Paco Tolbert MD on 04/13/2022 10:25 AM PDT Station ID: [id number]
[2022-04-13] MEDS ORDERED: IPRATROPIUM/ALBUTEROL 3 ML NEB INH STA (10:28)
[2022-04-13] MEDS ORDERED: predniSONE 20 MG TABLET PO STA (10:28)
[2022-04-13] MEDS ORDERED: ALBUTEROL NEB 2.5 MG/3 ML INH STA ×2 (11:40→12:20)
[2022-04-13 12:10] LABS: ABG PCO2 37 mmHg (34-45); ABG PH 7.41 (7.35-7.45); ABG PO2 62 mmHg (80-100)
[2022-04-13 12:11] LABS: ABG BASE EXCESS -1.1 mmol/L (-2.0-3.0); ABG HCO3 23.1 mmol/L (22.0-26.0); ABG OXYGEN SATURATION 92 % (94-98); ABG TCO2 24.3 MMOL/L (21.0-29.0); ALLEN TEST POSITIVE
--- NOTE | 2022-04-13 13:32 | ED Physician Documentation ---
PD HPI DYSPNEA - Stated complaint Stated Complaint: SOA - Chief complaint Chief Complaint: Resp - History obtained from History obtained from: Patient - Additional information Additional information: Patient is a 66-year-old female with a history of emphysema has been feeling increasingly short of air since Wednesday. She is used her nebulizer more often than normal. She reports Increased cough and congestion but denies change in sputum color. She denies fever. She does monitor her oxygen at home and reports her saturations went down to 87% last night. She does continue to smoke cigarettes. She does not wear home oxygen. She denies fever, chest pain, abdominal pain, vomiting or diarrhea. She denies lower extremity swelling. She has not recently been on prednisone or antibiotics. Patient reports that in October her home was cleaned with [place] without her Approval and since inhaling the fumes her emphysema has been worse. Review of Systems Constitutional: denies: Fever Nose: denies: Congestion Throat: denies: Sore throat Cardiac: denies: Chest pain / pressure Respiratory: reports: Dyspnea, Cough GI: denies: Abdominal Pain, Vomiting : denies: Dysuria Musculoskeletal: denies: Back pain Neurologic: denies: Headache PD PAST MEDICAL HISTORY - Past Medical History Cardiovascular: Hypertension, Arrhythmia Respiratory: Emphysema Endocrine/Autoimmune: HyPOthyroidism GI: None ACCOUNT SERVICE ASSOCIATE: Breast cancer : None Psych: Depression, Anxiety, Post traumatic stress disorder Musculoskeletal: Chronic back pain Derm: None - Past Surgical History Past Surgical History: Yes General: Colonoscopy /ACCOUNT SERVICE ASSOCIATE: Hysterectomy, Mastectomy, LEEP (Cervical surgery) HEENT: Tonsil/Adenoidectomy - Present Medications Home Medications: Ambulatory Orders Medication Instructions Recorded Confirmed Atenolol 50 mg ORAL DAILY 02/15/14 04/13/22 Citalopram Hydrobromide [Celexa] 40 mg PO DAILY 02/15/14 04/13/22 Levothyroxine [Synthroid] 100 mcg ORAL QDAC 02/15/14 04/13/22 Hydrocodone/Acetaminophen 1 each PO Q6H PRN #15 tablet 03/10/14 04/13/22 [Hydrocodon-Acetaminophen 5-325] ALPRAZolam [Alprazolam] 0.5 mg PO HS 04/13/22 04/13/22 Albuterol Sulf [Ventolin Hfa 1 - 2 puffs IH Q4H PRN 04/13/22 04/13/22 Inhaler] Fluticasone [Flonase] 2 sprays JONO HS 04/13/22 04/13/22 Fluticasone/Salmeterol [Advair 1 each IH Q12H 04/13/22 04/13/22 500-50 Diskus] Ipratropium/Albuterol [Duoneb] 3 ml IH QID PRN 04/13/22 04/13/22 Loratadine [Claritin] 10 mg PO DAILY 04/13/22 04/13/22 - Allergies Allergies/Adverse Reactions: Allergies Allergy/AdvReac Type Severity Reaction Status Date / Time Sulfa (Sulfonamide Allergy Intermediate Hives Verified 01/05/18 09:22 Antibiotics) Penicillins Allergy Unknown Unknown Verified 01/05/18 09:22 Iodinated Contrast Media Allergy Hives Verified 01/05/18 09:22 [Iodinated Contrast Media - IV Dye] pinesol Allergy Respiratory Uncoded 04/13/22 09:33 - Social History Does the pt smoke?: Yes Smoking Status: Current every day smoker Does the pt drink ETOH?: Yes Does the pt have substance abuse?: No - POLST Patient has POLST: No PD ED PE NORMAL - General General: Alert and oriented X 3, Well developed/nourished, Other (Mild Distress, pursed lip breathing) - HEENT HEENT: Atraumatic, Moist mucous membranes, Pharynx benign - Neck Neck: Supple, no meningeal sign - Cardiac Cardiac: RRR, No murmur, Strong equal pulses - Respiratory Respiratory: Other (Mild respiratory distress with pursed lip breathing, diffuse wheezing) - Abdomen Abdomen: Normal bowel sounds, Soft, Non tender, Non distended - Derm Derm: Warm and dry - Extremities Extremities: No edema, No calf tenderness / cord - Neuro Neuro: No motor deficit Results - Vitals Vitals: Vital Signs - 24 hr 04/13/22 04/13/22 04/13/22 09:25 10:52 12:14 Temperature 36.5 C Heart Rate 77 78 80 Respiratory 24 22 22 Rate Blood Pressure 135/77 H O2 Saturation 94 If not protocol : Oxygen Flow, liters/minute 04/13/22 04/13/22 04/13/22 12:29 13:00 15:00 Temperature Heart Rate 81 98 Respiratory 22 30 H Rate Blood Pressure 145/76 H O2 Saturation 87 L 95 If not protocol 2 : Oxygen Flow, liters/minute Oxygen O2 Source Nasal cannula Oxygen Flow Rate 87 - EKG (time done) 1026 Rate: Rate (enter#) (71) Rhythm: NSR [place]: Normal Ischemia: No: ST elevation c/w ischemia, ST depression - Labs Labs: Laboratory Tests 04/13/22 04/13/22 04/13/22 09:57 09:57 09:57 WBC 7.2 RBC 4.11 L Hgb 14.0 Hct 42.1 MCV 102.4 H MCH 34.1 H MCHC 33.3 RDW 12.6 Plt Count 332 MPV 9.8 Neut # (Auto) 4.4 Lymph # (Auto) 1.8 [place] # (Auto) 0.6 Eos # (Auto) 0.3 Baso # (Auto) 0.1 Absolute Nucleated RBC 0.00 Nucleated RBC % 0.0 Bld Gas Analysis Time Sample Site ABG pH ABG pCO2 ABG pO2 ABG HCO3 ABG Total CO2 ABG O2 Saturation ABG Base Excess Navid Test Sodium 139 Potassium 4.7 Chloride 105 Carbon Dioxide 26 Anion Gap 8.0 BUN 21 H Creatinine 0.9 Estimated GFR (MDRD) 62 L Glucose 101 H Calcium 9.1 Total Bilirubin 0.3 AST 23 ALT 19 Alkaline Phosphatase 76 B-Natriuretic Peptide 24 Total Protein 7.2 Albumin 4.2 Globulin 3.0 Albumin/Globulin Ratio 1.4 SARS-CoV-2 (PCR) 04/13/22 04/13/22 10:15 12:00 WBC RBC Hgb Hct MCV MCH MCHC RDW Plt Count MPV Neut # (Auto) Lymph # (Auto) [place] # (Auto) Eos # (Auto) Baso # (Auto) Absolute Nucleated RBC Nucleated RBC % Bld Gas Analysis Time 1210 Sample Site RIGHT RADIAL ABG pH 7.41 ABG pCO2 37 ABG pO2 62 L ABG HCO3 23.1 ABG Total CO2 24.3 ABG O2 Saturation 92 L ABG Base Excess -1.1 Navid Test POSITIVE Sodium Potassium Chloride Carbon Dioxide Anion Gap BUN Creatinine Estimated GFR (MDRD) Glucose Calcium Total Bilirubin AST ALT Alkaline Phosphatase B-Natriuretic Peptide Total Protein Albumin Globulin Albumin/Globulin Ratio SARS-CoV-2 (PCR) NOT DETECTED PD MEDICAL DECISION MAKING - ED course Complexity details: reviewed results, re-evaluated patient, d/w patient ED course: Pt with SOA. Diffuse wheezing and pursed lip breathing. Multiple nebs and PO steroids given. Labs unremarkable. ABG reviewed. Continued SOB and now requiring O2 (87% RA). Plan for admission. Doubt PE given lack of risk factors, no leg swelling, and alternate diagnosis more likely. No signs of fluid overload. 1329 - D/W Dr. WellsWill accept patient for admission. Departure - Departure Disposition: [facility] DC/Xfer Clinical Impression: COPD exacerbation, Acute respiratory failure with hypoxia Condition: Serious Discharge Date/Time: 04/13/22 16:00
[2022-04-13] MEDS ORDERED: ONDANSETRON 4 MG/2 ML VIAL IVP PRN (15:19)
--- NOTE | 2022-04-13 15:33 | HISTORY & PHYSICAL EXAMINATION ---
Chief Complaint - Chief Complaint Chief Complaint: SOB History of Present Illness - Admitted From Admitted From:: ED - History Obtained From History obtained from: ED provider and the patient - History of Present Illness HPI Comment/Other: This is a 66-year-old white female with a history of COPD, with PFTs done here in 2013 showing that it was moderate COPD then. She has a home nebulizer. She is also on pain meds, Synthroid and meds for anxiety and depression. The patient presented to the ED complaining of severe shortness of breath, had pursed lip breathing and difficulty speaking. She has noticed definitely worsening shortness of breath since October of this year (after exposure to [place] conduit cleaner) and has had approximately 4 courses of antibiotics plus 2-week Prednisone treatments with each. She gets better briefly then worsens when the courses of treatments are done. 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 She has had PFTs repeated this year but does not know the results. She had an Echo done in [place] this year for a "heart murmur", but does not know the results. She reports now having 1 week of worsening shortness of breath despite increasing her home nebulizer treatments. She continues to smoke. She rolls her own cigarettes but puts in a filter she says, and smokes about 10 per day. She has a chronic cough but denies any change in sputum color or frequency and has had no fevers. In the ED she was ordered nebulizers x3 and received oral prednisone 60 mg, but despite 3 nebulizer treatments, she still has air hunger and vital signs show that she had an oxygen saturation of 87% on room air. She has been started on 2 L supplemental O2. Her COVID test is ng, her CXR shows poss CHF, but no infiltrate. Her BNP is 24 however. The ED provider has reached out to the Hospitalist team to have the patient admitted for COPD exacerbation with h ypoxia. We discussed her CODE BLUE wishes and she does not know what she wants therefore by default she will be a Full Code. History - Past Medical History Cardiovascular: reports: Hypertension, Arrhythmia Respiratory: reports: Emphysema Endocrine/Autoimmune: reports: HyPOthyroidism GI: reports: None CATH LAB MANAGER: reports: Breast cancer : reports: None Psych: reports: Depression, Anxiety, Post traumatic stress disorder Musculoskeletal: reports: Chronic back pain Derm: reports: None - Past Surgical History General: reports: Colonoscopy /CATH LAB MANAGER: reports: Hysterectomy, Mastectomy (Left total mastectomy with 1 node removed, she did not want any oral treatment following that and needed no chemo, and has been CA-free), LEEP (Cervical surgery) HEENT: reports: Tonsil/Adenoidectomy - Family & Social History Family History: Mother: (Mom was 3PPD smoker and of COPD, Dad of diverticulitis complications), COPD/Emphysema, Father: Family History Comment/Other: Cancer runs in the family. Living arrangement: At home Living Situation: Alone Social History Notes: She smokes 10 cigarettes a day that she rolls on her own and states she puts in a filter. She uses occasional marijuana at night. She drinks alcohol socially. Her daughter has been hired as her caregiver, who takes her to all her appts and is currently at bedside - Substance History Use: Uses substance without health or social issues: NONE, Alcohol Dependence: Experiences withdrawal or developed tolerances: Tobacco Tobacco Details: Cigarettes - POLST Patient has POLST: No Meds/Allgy - Home Medications Home Medications: Ambulatory Orders Medication Instructions Recorded Confirmed Atenolol 50 mg ORAL DAILY 02/15/14 04/13/22 Citalopram Hydrobromide [Celexa] 40 mg PO DAILY 02/15/14 04/13/22 Levothyroxine [Synthroid] 100 mcg ORAL QDAC 02/15/14 04/13/22 Hydrocodone/Acetaminophen 1 each PO Q6H PRN #15 tablet 03/10/14 04/13/22 [Hydrocodon-Acetaminophen 5-325] ALPRAZolam [Alprazolam] 0.5 mg PO HS 04/13/22 04/13/22 Albuterol Sulf [Ventolin Hfa 1 - 2 puffs IH Q4H PRN 04/13/22 04/13/22 Inhaler] Fluticasone [Flonase] 2 sprays JONO HS 04/13/22 04/13/22 Fluticasone/Salmeterol [Advair 1 each IH Q12H 04/13/22 04/13/22 500-50 Diskus] Ipratropium/Albuterol [Duoneb] 3 ml IH QID PRN 04/13/22 04/13/22 Loratadine [Claritin] 10 mg PO DAILY 04/13/22 04/13/22 - Allergies Allergies/Adverse Reactions: Allergies Allergy/AdvReac Type Severity Reaction Status Date / Time Sulfa (Sulfonamide Allergy Intermediate Hives Verified 01/05/18 09:22 Antibiotics) Penicillins Allergy Unknown Unknown Verified 01/05/18 09:22 Iodinated Contrast Media Allergy Hives Verified 01/05/18 09:22 [Iodinated Contrast Media - IV Dye] pinesol Allergy Respiratory Uncoded 04/13/22 09:33 Review of Systems - Ears, Nose & Throat Ears, Nose & Throat: reports: Nasal congestion (when exposed to [place]ol) - Respiratory Respiratory: reports: Cough, Sputum production, Wheezing, SOB at rest, SOB with exertion, Apnea (Her dog "awakens her when the dog notices her becoming apneic". She is about to be scheduled to undergo sleep study.), Other (She feels a band of "muscle spasm" in the right lower rib cage area when she is very short of cristela ath. She was told she might have a floating rib there.) - Neurological Neurological: reports: Other (Prednisone makes her become forgetful.) - Psychiatric Psychiatric: reports: Depression, Anxiety, Other (Insomnia) - All Other Systems All Other Systems: reports: Reviewed and negative Exam - Vital Signs Reviewed Vital Signs: Yes Vital Signs: Vital Signs x48h Temp Pulse Resp BP Pulse Ox O2 Flow Rate 04/13/22 15:00 98 30 H 145/76 H 95 2 04/13/22 13:00 87 L 04/13/22 12:29 81 22 04/13/22 12:14 80 22 04/13/22 10:52 78 22 04/13/22 09:25 36.5 C 77 24 135/77 H 94 - Physical Exam General Appearance: positive: Severe distress (Pursed lip breathing, sitting upright, tripoding. This improved with a nebulizer treatment.), Other (Thin WF, hyperloquacious.) Eyes Bilateral: positive: Normal inspection, EOMI ENT: positive: ENT inspection nml, No signs of dehydration Neck: positive: Nml inspection, No JVD Respiratory: positive: Wheezes (and very poor air movement) Cardiovascular: positive: Regular rate & rhythm, No murmur (Very distant heart sounds because of her diffuse wheezing) Abdomen: positive: Non-tender, Nml bowel sounds, No distention Skin: positive: Warm, Dry Extremities: positive: Non-tender, No pedal edema Neurologic/Psychiatric: positive: Oriented x3 (Non-focal) Conclusion/Plan - Problem List (1) Acute respiratory failure with hypoxia Conclusion/Plan: The patient will be admitted to inpatient status. Supplemental oxygen continued to keep sats greater than 88% and a COPD year. Will taper down supplemental oxygen to room air as tolerated. On the day of discharge, she will need an oximetry walk test to see if she needs a new order for home oxygen (2) COPD exacerbation Conclusion/Plan: We will place the patient on nebulized bronchodilators and steroids, as needed bronchodilators every 4 hours, IV steroids, Singulair at at bedtime. Will order Mucinex to promote pulmonary toilet. Obtain sputum culture. She will likely need empiric antibiotics for her productive sputum production, will start Zithromax after the sputum is sent for culture (3) Tobacco use Conclusion/Plan: Nicotine patch was offered, the pt says it makes her want to smoke and did not want it ordered. She is trying Nicorette gum. The importance of stopping tobacco use will be reinforced. Her daughter is in the room and agreed. (4) Hypothyroidism Conclusion/Plan: Her Synthroid dose will be continued here. TSH will be checked to assess that the replacement dose is correct. (5) Anxiety and depression Conclusion/Plan: Her usual home meds will be continued here (6) Insomnia Conclusion/Plan: She requests oral Xanax for this which will be ordered - Lab Results Fish Bones: 04/13/22 09:57 04/13/22 09:57 - Diagnostic Imaging Results Diagnostic Imaging Results: positive: Final report reviewed - Other Other Results/Comments: Attestation: The patient is expected to be discharged or transferred to another facility within 96 hours: Yes.
[2022-04-13] MEDS: SODIUM CHLORIDE FLUSH 0.9% 10 ML SYRINGE IVP SCH ×2 (16:11→23:57)
[2022-04-13] MEDS: IPRATROPIUM/ALBUTEROL 3 ML NEB INH SCH (17:49)
[2022-04-13] MEDS: BUDESONIDE 0.5 MG/2 ML NEB INH SCH (17:49)
[2022-04-13] MEDS: IPRATROPIUM/ALBUTEROL 3 ML NEB INH PRN (20:13)
[2022-04-13] MEDS: methylPREDNISolone SUCCINATE 40 MG/ML VIAL IVP SCH (21:03)
[2022-04-13] MEDS: guaiFENesin 600 MG TABLET PO SCH (21:03)
[2022-04-13] MEDS: MONTELUKAST 10 MG TABLET PO SCH (21:03)
[2022-04-13] MEDS: ALPRAZolam 0.25 MG TABLET PO PRN (23:56)
[2022-04-14] MEDS: IPRATROPIUM/ALBUTEROL 3 ML NEB INH PRN (00:15)
[2022-04-14] MEDS: ACETAMINOPHEN 325 MG TABLET PO PRN ×3 (01:29→15:45)
[2022-04-14] MEDS: BUDESONIDE 0.5 MG/2 ML NEB INH SCH ×3 (06:00→20:14)
[2022-04-14] MEDS: IPRATROPIUM/ALBUTEROL 3 ML NEB INH SCH ×5 (06:00→20:14)
[2022-04-14] MEDS: methylPREDNISolone SUCCINATE 40 MG/ML VIAL IVP SCH ×3 (06:00→21:00)
[2022-04-14] MEDS: LEVOTHYROXINE 100 MCG TABLET PO SCH (06:01)
[2022-04-14 06:09] LABS: BASOPHILS % (AUTO) 0.2 %; HCT - HEMATOCRIT 42.4 % (37.0-47.0); HGB - HEMOGLOBIN 14.3 g/dL (12.0-16.0); LYMPHOCYTES # (AUTO) 1.1 10^3/uL (1.5-3.5); LYMPHOCYTES % (AUTO) 11.6 %; MEAN CORPUSCULAR HEMOGLOBIN 33.8 pg (27.0-31.0); MEAN CORPUSCULAR HGB CONC 33.7 g/dL (32.0-36.0); MEAN CORPUSCULAR VOLUME 100.2 fL (81.0-99.0); MONOCYTES # (AUTO) 0.3 10^3/uL (0.0-1.0); NEUTROPHILS # (AUTO) 7.9 10^3/uL (1.5-6.6); NEUTROPHILS % (AUTO) 84.7 %; PLT - PLATELET COUNT 351 10^3/uL (130-450); RED BLOOD COUNT 4.23 10^6/uL (4.20-5.40); RED CELL DISTRIBUTION WIDTH 12.6 % (12.0-15.0); WHITE BLOOD COUNT 9.3 x10^3/uL (4.8-10.8)
[2022-04-14 06:15] LABS: CALCIUM 8.9 mg/dL (8.5-10.3); CREATININE 0.7 mg/dL (0.4-1.0); POTASSIUM 4.2 mmol/L (3.5-5.0)
[2022-04-14] MEDS: guaiFENesin 600 MG TABLET PO SCH ×2 (08:22→20:09)
[2022-04-14] MEDS: ENOXAPARIN 40 MG/0.4 ML SYRINGE SUBQ SCH (08:22)
[2022-04-14] MEDS: CITALOPRAM HYDROBROMIDE 20 MG TABLET PO SCH (08:22)
[2022-04-14] MEDS: BENZOCAINE/MENTHOL LOZENGE MM PRN (08:23)
[2022-04-14] MEDS: SODIUM CHLORIDE FLUSH 0.9% 10 ML SYRINGE IVP SCH ×3 (08:23→23:34)
[2022-04-14] MEDS: MORPHINE 2 MG/ML CARPUJECT IVP PRN ×3 (09:46→20:09)
[2022-04-14] MEDS: SODIUM CHLORIDE FLUSH 0.9% 10 ML SYRINGE IVP PRN ×3 (13:07→20:09)
--- NOTE | 2022-04-14 13:50 | PROVIDER PROGRESS NOTE ---
Subjective - Prog Note Date Prog Note Date: 04/14/22 Prog Note Time: 13:20 - Subjective Pt reports feeling: Improved Current Medications - Current Medications Current Medications: Active Medications Acetaminophen (Acetaminophen 325 Mg Tablet) 650 mg PO Q4HR PRN PRN Reason: Pain 1 to 4, or Fever Last Admin: 04/14/22 06:31 Dose: 650 mg Albuterol/Ipratropium (Ipratropium/Albuterol 3 Ml Neb) 3 ml INH RTQID MARIA LUISA Last Admin: 04/14/22 13:12 Dose: 3 ml Albuterol/Ipratropium (Ipratropium/Albuterol 3 Ml Neb) 3 ml INH Q4HR PRN PRN Reason: Wheezing Last Admin: 04/14/22 00:15 Dose: 3 ml Alprazolam (Alprazolam 0.25 Mg Tablet) 0.25 mg PO QPM PRN PRN Reason: Insomnia Last Admin: 04/13/22 23:56 Dose: 0.25 mg Budesonide (Budesonide 0.5 Mg/2 Ml Neb) 0.5 mg INH RTBID [facility] Last Admin: 04/14/22 06:00 Dose: 0.5 mg Citalopram Hydrobromide (Citalopram Hydrobromide 20 Mg Tablet) 20 mg PO DAILY [facility] Last Admin: 04/14/22 08:22 Dose: 20 mg Enoxaparin Sodium (Enoxaparin 40 Mg/0.4 Ml Syringe) 40 mg SUBQ DAILY [facility] Last Admin: 04/14/22 08:22 Dose: 40 mg Guaifenesin (Guaifenesin 600 Mg Tablet) 600 mg PO BID [facility] Last Admin: 04/14/22 08:22 Dose: 600 mg Levothyroxine Sodium (Levothyroxine 100 Mcg Tablet) 100 mcg PO QDAC [facility] Last Admin: 04/14/22 06:01 Dose: 100 mcg Methylprednisolone (Methylprednisolone Succinate 40 Mg/Ml Vial) 80 mg IVP TID [facility] Last Admin: 04/14/22 13:06 Dose: 80 mg Montelukast Sodium (Montelukast 10 Mg Tablet) 10 mg PO QPM [facility] Last Admin: 04/13/22 21:03 Dose: 10 mg Morphine Sulfate (Morphine 2 Mg/Ml Carpuject) 2 mg IVP Q2HR PRN PRN Reason: PAIN Last Admin: 04/14/22 13:30 Dose: 2 mg Ondansetron HCl (Ondansetron 4 Mg/2 Ml Vial) 4 mg IVP Q6HR PRN PRN Reason: Nausea / Vomiting Sodium Chloride (Sodium Chloride Flush 0.9% 10 Ml Syringe) 10 ml IVP PRN PRN PRN Reason: NEEDED PER PROVIDER ORDERS Last Admin: 04/14/22 13:30 Dose: 10 ml Sodium Chloride (Sodium Chloride Flush 0.9% 10 Ml Syringe) 10 ml IVP 0100,0900,1700 MARIA LUISA Last Admin: 04/14/22 08:23 Dose: 10 ml Throat Lozenges (Benzocaine/Menthol Lozenge) 1 lozenge MM Q2HR PRN PRN Reason: Throat pain Last Admin: 04/14/22 08:23 Dose: 1 lozenge Atenolol 50 mg ORAL DAILY 02/15/14 Citalopram Hydrobromide [Celexa] 40 mg PO DAILY 02/15/14 Levothyroxine [Synthroid] 100 mcg ORAL QDAC 02/15/14 ALPRAZolam [Alprazolam] 0.5 mg PO HS 04/13/22 Albuterol Sulf [Ventolin Hfa Inhaler] 1 - 2 puffs IH Q4H PRN 04/13/22 Fluticasone [Flonase] 2 sprays JONO HS 04/13/22 Fluticasone/Salmeterol [Advair 500-50 Diskus] 1 each IH Q12H 04/13/22 Ipratropium/Albuterol [Duoneb] 3 ml IH QID PRN 04/13/22 Loratadine [Claritin] 10 mg PO DAILY 04/13/22 Objective - Vital Signs/Intake & Output Reviewed Vital Signs: Yes Vital Signs: Vital Signs x48h Temp Pulse Pulse Resp BP Pulse Ox O2 Flow Rate 04/14/22 09:22 86 24 04/14/22 09:00 36.6 C 91 92/79 93 04/14/22 06:31 2 04/14/22 06:15 89 24 2 Intake & Output: Intake & Output 04/11/22 04/12/22 04/13/22 04/14/22 23:59 23:59 23:59 23:59 Intake Total 590 1250 Balance 590 1250 - Objective General Appearance: positive: Mild distress (Pt is pleasantly engaging, but beco mes very easily short of breath.) Eyes Bilateral: positive: Normal inspection, EOMI ENT: positive: ENT inspection nml, No signs of dehydration Neck: positive: Nml inspection, No JVD Respiratory: positive: Wheezes, Rhonchi, Other (Tenderness over right lower ribs.) Cardiovascular: positive: Regular rate & rhythm, No murmur (Distant heart sounds due to adventitious breath artifacts.) Abdomen: positive: Non-tender, Nml bowel sounds, No distention Skin: positive: Warm, Dry Extremities: positive: Non-tender, Nml appearance, No pedal edema Neurologic/Psychiatric: positive: Oriented x3 - Lab Results Fish Bones: 04/14/22 05:44 04/14/22 05:44 Other Labs: Lab Results x24hrs 04/14/22 04/14/22 04/14/22 Range/Units 05:44 05:44 05:44 WBC 9.3 (4.8-10.8) x10^3/uL RBC 4.23 (4.20-5.40) 10^6/uL Hgb 14.3 (12.0-16.0) g/dL Hct 42.4 (37.0-47.0) % MCV 100.2 H (81.0-99.0) fL MCH 33.8 H (27.0-31.0) pg MCHC 33.7 (32.0-36.0) g/dL RDW 12.6 (12.0-15.0) % Plt Count 351 (130-450) 10^3/uL MPV 10.0 (7.9-10.8) fL Neut # (Auto) 7.9 H (1.5-6.6) 10^3/uL Lymph # (Auto) 1.1 L (1.5-3.5) 10^3/uL [place] # (Auto) 0.3 (0.0-1.0) 10^3/uL Eos # (Auto) 0.0 (0.0-0.7) 10^3/uL Baso # (Auto) 0.0 (0.0-0.1) 10^3/uL Absolute Nucleated RBC 0.00 x10^3/uL Nucleated RBC % 0.0 /100WBC Sodium 135 (135-145) mmol/L Potassium 4.2 (3.5-5.0) mmol/L Chloride 105 (101-111) mmol/L Carbon Dioxide 22 (21-32) mmol/L Anion Gap 8.0 (6-13) BUN 20 (6-20) mg/dL Creatinine 0.7 (0.4-1.0) mg/dL Estimated GFR (MDRD) 83 L (>89) Glucose 125 H (70-100) mg/dL Calcium 8.9 (8.5-10.3) mg/dL TSH 2.18 (0.34-5.60) uIU/mL Assessment/Plan - Problem List (1) Acute respiratory failure with hypoxia Impression: Resolved, pt's sats are at 93% on room air at rest, this is an improvement from the 88% at admission, however, she continues to experience severe shortness of breath with minimal exertion and frequent severe coughing fits. (2) COPD exacerbation Impression: Will continue nebulized bronchodilators and steroids, prn bronchodilators q4 h ours, IV steroids, mucinex, and Sigulair at bedtime. Awaiting culture results. Pt is still very easily short of breath and experiencing severe bouts of violent coughing, she is unable to ambulate more than 20ft by herself. (3) Tobacco use Impression: Pt declined nicotine patch, stated that it makes her want to smoke. She is trying Nicorette gum. Spoke to her about the importance of quitting and that tobacco cessation has been proven to decrease mortality in COPD pts. (4) Hypothyroidism Impression: Synthroid dose has been continued. TSH has been checked and the replacement dose is correct. (5) Anxiety and depression Impression: Usual home meds have been continued during hospitalization. (6) Insomnia Impression: Alprazolam 0.25mg PO has been ordered.
[2022-04-14] MEDS: MONTELUKAST 10 MG TABLET PO SCH (20:09)
[2022-04-14] MEDS: ALPRAZolam 0.25 MG TABLET PO PRN (22:14)
[2022-04-15] MEDS: BENZOCAINE/MENTHOL LOZENGE MM PRN (02:04)
[2022-04-15] MEDS: MORPHINE 2 MG/ML CARPUJECT IVP PRN ×3 (02:04→08:31)
[2022-04-15] MEDS: ACETAMINOPHEN 325 MG TABLET PO PRN ×2 (02:47→13:50)
[2022-04-15 05:01] LABS: BASOPHILS % (AUTO) 0.1 %; EOSINOPHILS % (AUTO) 0.1 %; HCT - HEMATOCRIT 39.2 % (37.0-47.0); HGB - HEMOGLOBIN 13.2 g/dL (12.0-16.0); LYMPHOCYTES # (AUTO) 0.8 10^3/uL (1.5-3.5); LYMPHOCYTES % (AUTO) 5.7 %; MEAN CORPUSCULAR HEMOGLOBIN 34.1 pg (27.0-31.0); MEAN CORPUSCULAR HGB CONC 33.7 g/dL (32.0-36.0); MEAN CORPUSCULAR VOLUME 101.3 fL (81.0-99.0); MEAN PLATELET VOLUME 10.2 fL (7.9-10.8); MONOCYTES # (AUTO) 0.7 10^3/uL (0.0-1.0); MONOCYTES % (AUTO) 5.1 %; NEUTROPHILS % (AUTO) 88.6 %; PLT - PLATELET COUNT 345 10^3/uL (130-450); RED BLOOD COUNT 3.87 10^6/uL (4.20-5.40); RED CELL DISTRIBUTION WIDTH 12.9 % (12.0-15.0); WHITE BLOOD COUNT 13.6 x10^3/uL (4.8-10.8)
[2022-04-15 05:10] LABS: CALCIUM 8.6 mg/dL (8.5-10.3); CREATININE 0.9 mg/dL (0.4-1.0); POTASSIUM 4.7 mmol/L (3.5-5.0)
[2022-04-15] MEDS: LEVOTHYROXINE 100 MCG TABLET PO SCH (05:13)
[2022-04-15] MEDS: methylPREDNISolone SUCCINATE 40 MG/ML VIAL IVP SCH ×3 (05:14→22:54)
[2022-04-15] MEDS: BUDESONIDE 0.5 MG/2 ML NEB INH SCH ×2 (05:20→18:54)
[2022-04-15] MEDS: IPRATROPIUM/ALBUTEROL 3 ML NEB INH PRN (05:20)
[2022-04-15] MEDS: CITALOPRAM HYDROBROMIDE 20 MG TABLET PO SCH (08:19)
[2022-04-15] MEDS: ENOXAPARIN 40 MG/0.4 ML SYRINGE SUBQ SCH (08:19)
[2022-04-15] MEDS: guaiFENesin 600 MG TABLET PO SCH ×2 (08:19→22:54)
[2022-04-15] MEDS: SODIUM CHLORIDE FLUSH 0.9% 10 ML SYRINGE IVP SCH ×3 (08:20→23:28)
[2022-04-15] MEDS: IPRATROPIUM/ALBUTEROL 3 ML NEB INH SCH ×4 (08:27→18:54)
[2022-04-15] MEDS: SODIUM CHLORIDE FLUSH 0.9% 10 ML SYRINGE IVP PRN (08:31)
--- NOTE | 2022-04-15 14:21 | PROVIDER PROGRESS NOTE ---
Subjective - Prog Note Date Prog Note Date: 04/15/22 Prog Note Time: 02:30 - Subjective Pt reports feeling: Improved (Feels better.) Current Medications - Current Medications Current Medications: Active Medications Acetaminophen (Acetaminophen 325 Mg Tablet) 650 mg PO Q4HR PRN PRN Reason: Pain 1 to 4, or Fever Last Admin: 04/15/22 13:50 Dose: 650 mg Albuterol/Ipratropium (Ipratropium/Albuterol 3 Ml Neb) 3 ml INH RTQID [facility] Last Admin: 04/15/22 15:06 Dose: 3 ml Alprazolam (Alprazolam 0.25 Mg Tablet) 0.25 mg PO QPM PRN PRN Reason: Insomnia Last Admin: 04/14/22 22:14 Dose: 0.25 mg Budesonide (Budesonide 0.5 Mg/2 Ml Neb) 0.5 mg INH RTBID [facility] Last Admin: 04/15/22 05:20 Dose: 0.5 mg Citalopram Hydrobromide (Citalopram Hydrobromide 20 Mg Tablet) 20 mg PO DAILY [facility] Last Admin: 04/15/22 08:19 Dose: 20 mg Enoxaparin Sodium (Enoxaparin 40 Mg/0.4 Ml Syringe) 40 mg SUBQ DAILY [facility] Last Admin: 04/15/22 08:19 Dose: 40 mg Guaifenesin (Guaifenesin 600 Mg Tablet) 600 mg PO BID [facility] Last Admin: 04/15/22 08:19 Dose: 600 mg Levothyroxine Sodium (Levothyroxine 100 Mcg Tablet) 100 mcg PO QDAC [facility] Last Admin: 04/15/22 05:13 Dose: 100 mcg Methylprednisolone (Methylprednisolone Succinate 40 Mg/Ml Vial) 80 mg IVP TID [facility] Last Admin: 04/15/22 13:50 Dose: 80 mg Montelukast Sodium (Montelukast 10 Mg Tablet) 10 mg PO QPM [facility] Last Admin: 04/14/22 20:09 Dose: 10 mg Morphine Sulfate (Morphine 2 Mg/Ml Carpuject) 2 mg IVP Q6H PRN PRN Reason: Cough Ondansetron HCl (Ondansetron 4 Mg/2 Ml Vial) 4 mg IVP Q6HR PRN PRN Reason: Nausea / Vomiting Sodium Chloride (Sodium Chloride Flush 0.9% 10 Ml Syringe) 10 ml IVP PRN PRN PRN Reason: NEEDED PER PROVIDER ORDERS Last Admin: 04/15/22 08:31 Dose: 10 ml Sodium Chloride (Sodium Chloride Flush 0.9% 10 Ml Syringe) 10 ml IVP 0100,0900,1700 [facility] Last Admin: 04/15/22 08:20 Dose: 10 ml Throat Lozenges (Benzocaine/Menthol Lozenge) 1 lozenge MM Q2HR PRN PRN Reason: Throat pain Last Admin: 04/15/22 02:04 Dose: 1 lozenge Atenolol 50 mg ORAL DAILY 02/15/14 Citalopram Hydrobromide [Celexa] 40 mg PO DAILY 02/15/14 Levothyroxine [Synthroid] 100 mcg ORAL QDAC 02/15/14 ALPRAZolam [Alprazolam] 0.5 mg PO 04/13/22 Albuterol Sulf [Ventolin Hfa Inhaler] 1 - 2 puffs IH Q4H PRN 04/13/22 Fluticasone [Flonase] 2 sprays JONO 04/13/22 Fluticasone/Salmeterol [Advair 500-50 Diskus] 1 each IH Q12H 04/13/22 Ipratropium/Albuterol [Duoneb] 3 ml IH QID PRN 04/13/22 Loratadine [Claritin] 10 mg PO DAILY 04/13/22 Objective - Vital Signs/Intake & Output Reviewed Vital Signs: Yes Vital Signs: Vital Signs x48h Temp Pulse Pulse Resp BP Pulse Ox 04/15/22 13:00 36.3 C L 94 20 151/64 H 94 04/15/22 11:42 90 20 04/15/22 08:58 36.6 C 100 22 145/58 H 90 L 04/15/22 08:28 88 22 Intake & Output: Intake & Output 04/12/22 04/13/22 04/14/22 04/15/22 23:59 23:59 23:59 23:59 Intake Total 590 1850 850 Balance 590 1850 850 - Objective General Appearance: positive: No acute distress Eyes Bilateral: positive: Normal inspection ENT: positive: ENT inspection nml Neck: positive: Nml inspection, No JVD. negative: Stiff neck Respiratory: positive: Chest non-tender, Wheezes Cardiovascular: positive: Regular rate & rhythm Abdomen: positive: Non-tender, Nml bowel sounds, No distention Back: positive: Nml inspection Skin: positive: Color nml Neurologic/Psychiatric: positive: Oriented x3 - Lab Results Fish Bones: 04/15/22 04:26 04/15/22 04:26 Other Labs: Lab Results x24hrs 04/15/22 04/15/22 Range/Units 04:26 04:26 WBC 13.6 H (4.8-10.8) x10^3/uL RBC 3.87 L (4.20-5.40) 10^6/uL Hgb 13.2 (12.0-16.0) g/dL Hct 39.2 (37.0-47.0) % MCV 101.3 H (81.0-99.0) fL MCH 34.1 H (27.0-31.0) pg MCHC 33.7 (32.0-36.0) g/dL RDW 12.9 (12.0-15.0) % Plt Count 345 (130-450) 10^3/uL MPV 10.2 (7.9-10.8) fL Neut # (Auto) 12.0 H (1.5-6.6) 10^3/uL Lymph # (Auto) 0.8 L (1.5-3.5) 10^3/uL [place] # (Auto) 0.7 (0.0-1.0) 10^3/uL Eos # (Auto) 0.0 (0.0-0.7) 10^3/uL Baso # (Auto) 0.0 (0.0-0.1) 10^3/uL Absolute Nucleated RBC 0.00 x10^3/uL Nucleated RBC % 0.0 /100WBC Sodium 134 L (135-145) mmol/L Potassium 4.7 (3.5-5.0) mmol/L Chloride 101 (101-111) mmol/L Carbon Dioxide 21 (21-32) mmol/L Anion Gap 12.0 (6-13) BUN 29 H (6-20) mg/dL Creatinine 0.9 (0.4-1.0) mg/dL Estimated GFR (MDRD) 62 L (>89) Glucose 126 H (70-100) mg/dL Calcium 8.6 (8.5-10.3) mg/dL ABX Reporting Has patient been on IV antibiotics over the past 48 hours?: No Assessment/Plan - Problem List (1) Acute respiratory failure with hypoxia Impression: Resolved, pt's sats are at 94% on room air at rest, this is an improvement from the 88% at admission, however, she continues to experience shortness of breath with minimal exertion (after about 5 minutes of talking) and coughing fits. (2) COPD exacerbation Impression: Will continue nebulized bronchodilators and steroids, prn bronchodilators q4 hours, IV steroids, mucinex, and Sigulair at bedtime. Culture results still pending, white blood cell count is high from 9.3 (04/14) yesterday to 13.4 today (04/15). Pt is still very easily short of breath and experiencing coughing bouts. Reduced morphine from q2hrs to q6hrs for coughing. (3) Tobacco use Impression: Pt declined nicotine patch, stated that it makes her want to smoke. She is trying Nicorette gum. Spoke to her about the importance of quitting and that tobacco cessation has been proven to decrease mortality in COPD pts. (4) Hypothyroidism Impression: Synthroid dose has been continued. TSH has been checked and the replacement dose is correct. (5) Anxiety and depression Impression: Usual home meds have been continued during hospitalization. (6) Insomnia Impression: Alprazolam 0.25mg PO has been ordered.
[2022-04-15] MEDS: MONTELUKAST 10 MG TABLET PO SCH (22:54)
[2022-04-16] MEDS: MORPHINE 2 MG/ML CARPUJECT IVP PRN ×3 (02:53→16:56)
[2022-04-16] MEDS: BENZOCAINE/MENTHOL LOZENGE MM PRN (03:39)
[2022-04-16] MEDS: methylPREDNISolone SUCCINATE 40 MG/ML VIAL IVP SCH ×3 (05:13→21:03)
[2022-04-16] MEDS: LEVOTHYROXINE 100 MCG TABLET PO SCH (05:21)
[2022-04-16] MEDS: DOCUSATE SODIUM 250 MG CAPSULE PO SCH (05:21)
[2022-04-16] MEDS ORDERED: DOCUSATE SODIUM 250 MG CAPSULE PO ONE (05:33)
[2022-04-16 05:44] LABS: BASOPHILS % (AUTO) 0.1 %; EOSINOPHILS % (AUTO) 0.2 %; HCT - HEMATOCRIT 40.4 % (37.0-47.0); HGB - HEMOGLOBIN 13.4 g/dL (12.0-16.0); LYMPHOCYTES # (AUTO) 0.7 10^3/uL (1.5-3.5); LYMPHOCYTES % (AUTO) 5.9 %; MEAN CORPUSCULAR HEMOGLOBIN 33.6 pg (27.0-31.0); MEAN CORPUSCULAR HGB CONC 33.2 g/dL (32.0-36.0); MEAN CORPUSCULAR VOLUME 101.3 fL (81.0-99.0); MEAN PLATELET VOLUME 9.9 fL (7.9-10.8); MONOCYTES # (AUTO) 0.6 10^3/uL (0.0-1.0); MONOCYTES % (AUTO) 5.2 %; NEUTROPHILS # (AUTO) 10.7 10^3/uL (1.5-6.6); NEUTROPHILS % (AUTO) 87.9 %; PLT - PLATELET COUNT 344 10^3/uL (130-450); RED BLOOD COUNT 3.99 10^6/uL (4.20-5.40); WHITE BLOOD COUNT 12.2 x10^3/uL (4.8-10.8)
[2022-04-16] MEDS: IPRATROPIUM/ALBUTEROL 3 ML NEB INH SCH ×4 (06:00→19:00)
[2022-04-16] MEDS: BUDESONIDE 0.5 MG/2 ML NEB INH SCH ×2 (06:00→19:00)
[2022-04-16 06:02] LABS: CALCIUM 8.9 mg/dL (8.5-10.3); CREATININE 0.8 mg/dL (0.4-1.0); POTASSIUM 4.5 mmol/L (3.5-5.0)
[2022-04-16] MEDS: ENOXAPARIN 40 MG/0.4 ML SYRINGE SUBQ SCH (09:28)
[2022-04-16] MEDS: guaiFENesin 600 MG TABLET PO SCH ×2 (09:28→21:03)
[2022-04-16] MEDS: CITALOPRAM HYDROBROMIDE 20 MG TABLET PO SCH (09:28)
[2022-04-16] MEDS: SODIUM CHLORIDE FLUSH 0.9% 10 ML SYRINGE IVP SCH ×2 (09:31→15:42)
[2022-04-16] MEDS: ALPRAZolam 0.25 MG TABLET PO PRN ×2 (11:19→21:03)
[2022-04-16] MEDS: SODIUM CHLORIDE FLUSH 0.9% 10 ML SYRINGE IVP PRN (14:25)
[2022-04-16 16:01] LABS: FOLATE 9.26 ng/mL (5.90 - >24.8)
--- NOTE | 2022-04-16 16:50 | PROVIDER PROGRESS NOTE ---
Subjective - Prog Note Date Prog Note Date: 04/16/22 Prog Note Time: 16:46 - Subjective Subjective: I tried to send her home this morning since she was not hypoxic and is ambulating in the hallways. However she had an episode of abrupt shortness of breath, audible wheezing without a stethoscope, tachycardia into the 130s. EKG shows sinus tachycardia. She had quite a bit of anxiety with this. Yesterday she was angry when I touched her shoulder and said she did not like that. Today she let me examine her lungs. There is audible wheezing even without a stethoscope. Cough has improved in spite of this abrupt shortness of breath from this morning. After this morning, she has not had any more episodes of abrupt shortness of breath. However she is pursed lip breathing in the afternoon with audible wheezing without stethoscope. Current Medications - Current Medications Current Medications: Active Medications Acetaminophen (Acetaminophen 325 Mg Tablet) 650 mg PO Q4HR PRN PRN Reason: Pain 1 to 4, or Fever Last Admin: 04/15/22 13:50 Dose: 650 mg Albuterol/Ipratropium (Ipratropium/Albuterol 3 Ml Neb) 3 ml INH RTQID [facility] Last Admin: 04/16/22 14:03 Dose: 3 ml Alprazolam (Alprazolam 0.25 Mg Tablet) 0.25 mg PO QPM PRN PRN Reason: Insomnia Last Admin: 04/16/22 11:19 Dose: 0.25 mg Budesonide (Budesonide 0.5 Mg/2 Ml Neb) 0.5 mg INH RTBID [facility] Last Admin: 04/16/22 06:00 Dose: 0.5 mg Citalopram Hydrobromide (Citalopram Hydrobromide 20 Mg Tablet) 20 mg PO DAILY [facility] Last Admin: 04/16/22 09:28 Dose: 20 mg Docusate Sodium (Docusate Sodium 250 Mg Capsule) 250 - 500 mg PO DAILY [facility] Last Admin: 04/16/22 05:21 Dose: 250 mg Enoxaparin Sodium (Enoxaparin 40 Mg/0.4 Ml Syringe) 40 mg SUBQ DAILY [facility] Last Admin: 04/16/22 09:28 Dose: 40 mg Guaifenesin (Guaifenesin 600 Mg Tablet) 600 mg PO BID [facility] Last Admin: 04/16/22 09:28 Dose: 600 mg Levothyroxine Sodium (Levothyroxine 100 Mcg Tablet) 100 mcg PO QDAC [facility] Last Admin: 04/16/22 05:21 Dose: 100 mcg Methylprednisolone (Methylprednisolone Succinate 40 Mg/Ml Vial) 80 mg IVP TID [facility] Last Admin: 04/16/22 14:25 Dose: 80 mg Montelukast Sodium (Montelukast 10 Mg Tablet) 10 mg PO QPM [facility] Last Admin: 04/15/22 22:54 Dose: 10 mg Morphine Sulfate (Morphine 2 Mg/Ml Carpuject) 2 mg IVP Q6H PRN PRN Reason: Cough Last Admin: 04/16/22 10:49 Dose: 2 mg Ondansetron HCl (Ondansetron 4 Mg/2 Ml Vial) 4 mg IVP Q6HR PRN PRN Reason: Nausea / Vomiting Sodium Chloride (Sodium Chloride Flush 0.9% 10 Ml Syringe) 10 ml IVP PRN PRN PRN Reason: NEEDED PER PROVIDER ORDERS Last Admin: 04/16/22 14:25 Dose: 10 ml Sodium Chloride (Sodium Chloride Flush 0.9% 10 Ml Syringe) 10 ml IVP 0100,0900,1700 [facility] Last Admin: 04/16/22 15:42 Dose: 10 ml Throat Lozenges (Benzocaine/Menthol Lozenge) 1 lozenge MM Q2HR PRN PRN Reason: Throat pain Last Admin: 04/16/22 03:39 Dose: 1 lozenge Atenolol 50 mg ORAL DAILY 02/15/14 Citalopram Hydrobromide [Celexa] 40 mg PO DAILY 02/15/14 Levothyroxine [Synthroid] 100 mcg ORAL QDAC 02/15/14 ALPRAZolam [Alprazolam] 0.5 mg PO 04/13/22 Albuterol Sulf [Ventolin Hfa Inhaler] 1 - 2 puffs IH Q4H PRN 04/13/22 Fluticasone [Flonase] 2 sprays JONO 04/13/22 Fluticasone/Salmeterol [Advair 500-50 Diskus] 1 each IH Q12H 04/13/22 Ipratropium/Albuterol [Duoneb] 3 ml IH QID PRN 04/13/22 Loratadine [Claritin] 10 mg PO DAILY 04/13/22 Objective - Vital Signs/Intake & Output Reviewed Vital Signs: Yes Vital Signs: Vital Signs x48h Temp Pulse Pulse Resp BP Pulse Ox O2 Flow Rate 04/16/22 15:47 36.7 C 105 H 23 151/52 H 93 2 04/16/22 12:26 36.7 C 110 H 24 153/68 H 92 2 04/16/22 11:01 120 H 23 2 Intake & Output: Intake & Output 04/13/22 04/14/22 04/15/22 04/16/22 23:59 23:59 23:59 23:59 Intake Total 590 1850 1570 2440 Balance 590 1850 1570 2440 - Objective General Appearance: positive: Alert (Pursed lip breathing, wheezing, mild tachypnea), Moderate distress Eyes Bilateral: positive: PERRL, EOMI ENT: positive: Pharynx nml Neck: positive: No JVD. negative: Stiff neck Respiratory: positive: No respiratory distress, Wheezes, Rhonchi (Faint and not always present with every breath). negative: Rales Cardiovascular: positive: Regular rate & rhythm, Tachycardia (Heart rate was 120 at 11 AM and is now down to 105) Abdomen: positive: Non-tender, No organomegaly, Nml bowel sounds, No distention Skin: positive: Warm, Dry Extremities: positive: Full ROM, No pedal edema Neurologic/Psychiatric: positive: Oriented x3, CN's nml (2-12), Motor nml - Lab Results Fish Bones: 04/16/22 05:29 04/16/22 05:29 Other Labs: Lab Results x24hrs 04/16/22 04/16/22 04/16/22 Range/Units 05:29 05:29 05:29 WBC 12.2 H (4.8-10.8) x10^3/uL RBC 3.99 L (4.20-5.40) 10^6/uL Hgb 13.4 (12.0-16.0) g/dL Hct 40.4 (37.0-47.0) % MCV 101.3 H (81.0-99.0) fL MCH 33.6 H (27.0-31.0) pg MCHC 33.2 (32.0-36.0) g/dL RDW 13.0 (12.0-15.0) % Plt Count 344 (130-450) 10^3/uL MPV 9.9 (7.9-10.8) fL Neut # (Auto) 10.7 H (1.5-6.6) 10^3/uL Lymph # (Auto) 0.7 L (1.5-3.5) 10^3/uL Weld # (Auto) 0.6 (0.0-1.0) 10^3/uL Eos # (Auto) 0.0 (0.0-0.7) 10^3/uL Baso # (Auto) 0.0 (0.0-0.1) 10^3/uL Absolute Nucleated RBC 0.00 x10^3/uL Nucleated RBC % 0.0 /100WBC Sodium 134 L (135-145) mmol/L Potassium 4.5 (3.5-5.0) mmol/L Chloride 101 (101-111) mmol/L Carbon Dioxide 25 (21-32) mmol/L Anion Gap 8.0 (6-13) BUN 26 H (6-20) mg/dL Creatinine 0.8 (0.4-1.0) mg/dL Estimated GFR (MDRD) 71 L (>89) Glucose 115 H (70-100) mg/dL Calcium 8.9 (8.5-10.3) mg/dL Vitamin B12 218 (180-914) pg/mL Folate 9.26 (5.90 - >24.8) ng/mL Assessment/Plan - Problem List (1) Acute respiratory failure with hypoxia Impression: Resolved, pt's sats are at 93% on room air at rest, this is an improvement from the 88% at admission, however, she continues to experience severe shortness of breath with minimal exertion and frequent severe coughing fits.They are getting slowly less frequent. I added morphine to control some of the spasming. That helped but this patient was asking for too frequently and I reduced the amount to every 6 hours as needed. She did ask if we could please make contact with her floor installation mechanic. She saw Dr. Cade at the [facility] once. And since his long-term in September of this year she is seeing a an [employer] at the [facility] pulmonology division. She is seen at [employer] twice. I did call the clinic today but no one was in the office at 4:30 PM. The nurse practitioner will not be back till Wednesday. Today is . I had hoped to send the patient home this morning. But she has severe tachycardia, coughing, wheezing and anxiety and as such of kept her 1 more day and will try again to discharge in the morning. (2) COPD exacerbation Impression: Will continue nebulized bronchodilators and steroids, prn bronchodilators q4 hours, IV steroids, mucinex, and Sigulair at bedtime. Awaiting culture results. She is ambulating in her room and out of her room down the hallway. But the effort leaves her exhausted. She is still having deep coughing but again much, much less frequent than yesterday. Her hospital room is right outside the hospitalist office and it is very easy to monitor that cough. Still present today but with much less intensity and frequency. Hopefully discharge tomorrow. (3) Tobacco use Impression: Pt declined nicotine patch, stated that it makes her want to smoke. She is trying Nicorette gum. Spoke to her about the importance of quitting and that tobacco cessation has been proven to decrease mortality in COPD pts. She states that she has not smoked while she has been here, and had decreased her cigarette use over the last week. She hopes to use that as a turning point not to smoke when she leaves the hospital. (4) Hypothyroidism Impression: Synthroid dose has been continued. TSH has been checked and the replacement dose is correct. (5) Anxiety and depression Impression: Usual home meds have been continued during hospitalization. (6) Insomnia Impression: Alprazolam 0.25mg PO has been ordered.
[2022-04-16] MEDS: MONTELUKAST 10 MG TABLET PO SCH (21:03)
[2022-04-16] MEDS: ALBUTEROL NEB 2.5 MG/3 ML INH PRN (23:30)
[2022-04-17] MEDS: ALBUTEROL NEB 2.5 MG/3 ML INH PRN (03:52)
[2022-04-17] MEDS: LEVOTHYROXINE 100 MCG TABLET PO SCH (07:58)
[2022-04-17] MEDS: PRENATAL VITAMIN TABLET PO SCH (07:58)
[2022-04-17] MEDS: methylPREDNISolone SUCCINATE 40 MG/ML VIAL IVP SCH ×3 (07:59→21:56)
[2022-04-17] MEDS: SODIUM CHLORIDE FLUSH 0.9% 10 ML SYRINGE IVP SCH ×3 (08:03→16:12)
[2022-04-17] MEDS: IPRATROPIUM/ALBUTEROL 3 ML NEB INH SCH ×4 (08:14→20:44)
[2022-04-17] MEDS: BUDESONIDE 0.5 MG/2 ML NEB INH SCH ×2 (08:14→20:44)
[2022-04-17] MEDS: guaiFENesin 600 MG TABLET PO SCH ×2 (10:22→21:55)
[2022-04-17] MEDS: DOCUSATE SODIUM 250 MG CAPSULE PO SCH (10:22)
[2022-04-17] MEDS: ENOXAPARIN 40 MG/0.4 ML SYRINGE SUBQ SCH (10:23)
[2022-04-17] MEDS: CYANOCOBALAMIN 500 MCG TABLET PO SCH (10:23)
[2022-04-17] MEDS: CITALOPRAM HYDROBROMIDE 20 MG TABLET PO SCH (11:35)
--- NOTE | 2022-04-17 12:21 | PROVIDER PROGRESS NOTE ---
Subjective - Prog Note Date Prog Note Date: 04/17/22 Prog Note Time: 12:19 - Subjective Subjective: She has been on 2 L nasal cannula off and on. At times she could be on room air and saturating at 92%. But starting yesterday morning she has been on nasal cannula oxygen completely due to shortness of breath. She is saturating anywhere between 91% to 93% on 2 L nasal cannula. She is stating that she wants antibiotics and she wants some now. I explained that her chest x-ray is negative but she says that she knows her own body and wants antibiotics. She also states that she wishes that I could not examine her. She does not like it when I touch her shoulder to try and get her to stop talking. I explained that I will not touch her shoulder again and will only listen with the stethoscope. Because she is so severely short of breath and worsening, I did asked to do a CT angiogram. She says that she gets hives with dye. I offered her Benadryl and steroids to control the hives to see if she was having a blood clot and she declines. She says that she understands that this could be life-threatening but again states that she knows her own body and only wants antibiotics. She is bringing up colored phlegm. No fever. Having increasing oxygen requirement. Current Medications - Current Medications Current Medications: Active Medications Acetaminophen (Acetaminophen 325 Mg Tablet) 650 mg PO Q4HR PRN PRN Reason: Pain 1 to 4, or Fever Last Admin: 04/15/22 13:50 Dose: 650 mg Albuterol (Albuterol Neb 2.5 Mg/3 Ml) 2.5 mg INH RTQ4H PRN PRN Reason: Wheezing Last Admin: 04/17/22 03:52 Dose: 2.5 mg Albuterol/Ipratropium (Ipratropium/Albuterol 3 Ml Neb) 3 ml INH RTQID [facility] Last Admin: 04/17/22 11:40 Dose: 3 ml Alprazolam (Alprazolam 0.25 Mg Tablet) 0.25 mg PO QPM PRN PRN Reason: Insomnia Last Admin: 04/16/22 21:03 Dose: 0.25 mg Budesonide (Budesonide 0.5 Mg/2 Ml Neb) 0.5 mg INH RTBID [facility] Last Admin: 04/17/22 08:14 Dose: 0.5 mg Citalopram Hydrobromide (Citalopram Hydrobromide 20 Mg Tablet) 20 mg PO DAILY [facility] Last Admin: 04/17/22 11:35 Dose: 20 mg Cyanocobalamin (Cyanocobalamin 500 Mcg Tablet) 500 mcg PO DAILY [facility] Last Admin: 04/17/22 10:23 Dose: 500 mcg Docusate Sodium (Docusate Sodium 250 Mg Capsule) 250 - 500 mg PO DAILY [facility] Last Admin: 04/17/22 10:22 Dose: 250 mg Enoxaparin Sodium (Enoxaparin 40 Mg/0.4 Ml Syringe) 40 mg SUBQ DAILY [facility] Last Admin: 04/17/22 10:23 Dose: Not Given Guaifenesin (Guaifenesin 600 Mg Tablet) 600 mg PO BID [facility] Last Admin: 04/17/22 10:22 Dose: 600 mg Azithromycin 500 mg/ Sodium (Chloride) 250 mls @ 250 mls/hr IV DAILY [facility] Stop: 04/19/22 09:59 Levothyroxine Sodium (Levothyroxine 100 Mcg Tablet) 100 mcg PO QDAC [facility] Last Admin: 04/17/22 07:58 Dose: 100 mcg Methylprednisolone (Methylprednisolone Succinate 40 Mg/Ml Vial) 80 mg IVP TID [facility] Last Admin: 04/17/22 07:59 Dose: 80 mg Montelukast Sodium (Montelukast 10 Mg Tablet) 10 mg PO QPM [facility] Last Admin: 04/16/22 21:03 Dose: 10 mg Morphine Sulfate (Morphine 2 Mg/Ml Carpuject) 2 mg IVP Q6H PRN PRN Reason: Cough Last Admin: 04/16/22 16:56 Dose: 2 mg Ondansetron HCl (Ondansetron 4 Mg/2 Ml Vial) 4 mg IVP Q6HR PRN PRN Reason: Nausea / Vomiting Multivit/Folic Acid/Iron ( Vitamin Tablet) 1 tab PO DAILYWM [facility] Last Admin: 04/17/22 07:58 Dose: 1 tab Sodium Chloride (Sodium Chloride Flush 0.9% 10 Ml Syringe) 10 ml IVP PRN PRN PRN Reason: NEEDED PER PROVIDER ORDERS Last Admin: 04/16/22 14:25 Dose: 10 ml Sodium Chloride (Sodium Chloride Flush 0.9% 10 Ml Syringe) 10 ml IVP 0100,0900,1700 [facility] Last Admin: 04/17/22 08:03 Dose: 10 ml Throat Lozenges (Benzocaine/Menthol Lozenge) 1 lozenge MM Q2HR PRN PRN Reason: Throat pain Last Admin: 04/16/22 03:39 Dose: 1 lozenge Atenolol 50 mg ORAL DAILY 02/15/14 Citalopram Hydrobromide [Celexa] 40 mg PO DAILY 02/15/14 Levothyroxine [Synthroid] 100 mcg ORAL QDAC 02/15/14 ALPRAZolam [Alprazolam] 0.5 mg PO HS 04/13/22 Albuterol Sulf [Ventolin Hfa Inhaler] 1 - 2 puffs IH Q4H PRN 04/13/22 Fluticasone [Flonase] 2 sprays JONO HS 04/13/22 Fluticasone/Salmeterol [Advair 500-50 Diskus] 1 each IH Q12H 04/13/22 Ipratropium/Albuterol [Duoneb] 3 ml IH QID PRN 04/13/22 Loratadine [Claritin] 10 mg PO DAILY 04/13/22 Objective - Vital Signs/Intake & Output Vital Signs: Vital Signs x48h Temp Pulse Pulse Resp BP Pulse Ox O2 Flow Rate 04/17/22 11:40 111 H 26 H 2 04/17/22 11:34 109 H 162/101 H 04/17/22 10:31 93 2 04/17/22 10:30 90 L 2 04/17/22 09:52 36.5 C 109 H 29 H 184/98 H 91 L 2 04/17/22 08:20 78 24 2 04/17/22 08:06 113 H 20 92 2 Intake & Output: Intake & Output 04/14/22 04/15/22 04/16/22 04/17/22 23:59 23:59 23:59 23:59 Intake Total 1850 1570 2790 Balance 1850 1570 2790 - Objective General Appearance: positive: Alert, Moderate distress (She is sitting on the toilet in the bathroom having a bowel movement. I asked if I could please be excused and I could come back later and she stated no. She would rather speak to me now while she was on the toilet. She has labored respiration, pursed lip breathing, dry lips.) Eyes Bilateral: positive: PERRL, EOMI ENT: positive: Dry mucous membranes Neck: positive: No JVD. negative: Stiff neck Respiratory: positive: Wheezes, Rhonchi, Other (Tachypnea, but no use of accessory muscles. Diffuse wheezing and rhonchi.) Cardiovascular: positive: Regular rate & rhythm, Tachycardia Abdomen: positive: Non-tender, No organomegaly, Nml bowel sounds, No distention Skin: positive: Diaphoresis Extremities: positive: Non-tender, Full ROM, No pedal edema Neurologic/Psychiatric: positive: Oriented x3, CN's nml (2-12), Motor nml - Lab Results Fish Bones: 04/16/22 05:29 04/16/22 05:29 Other Labs: Lab Results x24hrs 04/16/22 Range/Units 05:29 Vitamin B12 218 (180-914) pg/mL Folate 9.26 (5.90 - >24.8) ng/mL ABX Reporting Has patient been on IV antibiotics over the past 48 hours?: No Assessment/Plan - Problem List (1) Acute respiratory failure with hypoxia Impression: This was the cause of admission, and she did have improvement over the first 24 to 48 hours. She continued to have severe shortness of breath and no hypoxia and we kept her. She had audible wheezing, pursed lip breathing. Starting yesterday afternoon she is starting to have hypoxia again along as worsening res piratory distress. Our respiratory supervisor is a black gentleman. She is not happy with his service. She has made a few comments about not having an answer tach but we have explained that there is no other choice when there is only one respiratory therapist in the hospital. She is also made request and suggestions about my skin color and again I explained that I am the only physician in the hospital right now that we will be taking care of her. As such she is unhappy that she has to deal with myself or the respiratory supervisor according to her personal desires. I did attempt to do a CT pulmonary angiogram to make sure she was not having a PE. She declines to do so on the basis of sulfa allergies. I have tried to reassure her that I can try and mitigate that with steroids and Benadryl and she still declines. We do not have nuclear medicine capability. As such I cannot do a ventilation/perfusion scan. We will continue to support her with oxygen, and treat the underlying cause and #2. (2) COPD exacerbation Impression: Medications are albuterol as needed, DuoNeb on a scheduled dose, Pulmicort on a scheduled dose, methylprednisolone 80 mg 3 times a day, Singulair. She is not improving. Plan: Repeat chest x-ray Add azithromycin (3) Tobacco use Impression: Pt declined nicotine patch, stated that it makes her want to smoke. She is trying Nicorette gum. Spoke to her about the importance of quitting and that tobacco cessation has been proven to decrease mortality in COPD pts. She states that she has not smoked while she has been here, and had decreased her cigarette use over the last week. She hopes to use that as a turning point not to smoke when she leaves the hospital. (4) Hypothyroidism Impression: Synthroid dose has been continued. TSH has been checked and the replacement dose is correct. (5) Anxiety and depression Impression: Usual home meds have been continued during hospitalization. (6) Insomnia Impression: Alprazolam 0.25mg PO has been ordered.
[2022-04-17] MEDS: SODIUM CHLORIDE FLUSH 0.9% 10 ML SYRINGE IVP PRN (14:09)
[2022-04-17] MEDS: AZITHROMYCIN INJ 500 MG in SODIUM CHLORIDE 0.9% 250 ML IV SCH (14:09)
[2022-04-17] MEDS: MONTELUKAST 10 MG TABLET PO SCH (21:55)
[2022-04-17] MEDS ORDERED: atenoloL 25 MG TABLET PO STA (23:20)
--- NOTE | 2022-04-17 23:22 | PROVIDER PROGRESS NOTE ---
Hospitalist Cross-cover Note - Cross-Cover Note Cross-Cover Note: Consult Information Member Facility: [facility] Facility Requesting Clinician: ANAYELI YOUNG Patient Name: Adela Ro Date of : 1955 Gender: Female Reason for Consult Reason for Consult: Drug Order/Clarification Clinical Note Clinical Note: per rn - "The patient is demanding Atenolol 100mg PO now. This as a home medication ordered as 50mg PO QD. She is currently refusing all other medications. See VS charting please. The patient was admitted with a COPD exacerbation and ARF. The patient is acting and speaking irrationally to staff. Please see the nursing note from yaima. Should we order this patient home medication as requested? I would like you to also consider that this may be related to the steroid use" atenolol 100mg po x 1
[2022-04-18] MEDS: ALPRAZolam 0.25 MG TABLET PO PRN (00:08)
[2022-04-18] MEDS: SODIUM CHLORIDE FLUSH 0.9% 10 ML SYRINGE IVP SCH ×4 (00:09→23:26)
[2022-04-18] MEDS: ACETAMINOPHEN 325 MG TABLET PO PRN (04:55)
[2022-04-18] MEDS: BENZOCAINE/MENTHOL LOZENGE MM PRN ×2 (04:56→22:43)
[2022-04-18] MEDS: LEVOTHYROXINE 100 MCG TABLET PO SCH (06:54)
[2022-04-18] MEDS: methylPREDNISolone SUCCINATE 40 MG/ML VIAL IVP SCH ×3 (06:55→20:46)
[2022-04-18] MEDS: IPRATROPIUM/ALBUTEROL 3 ML NEB INH SCH ×4 (07:21→19:29)
[2022-04-18] MEDS: BUDESONIDE 0.5 MG/2 ML NEB INH SCH ×2 (07:21→19:29)
[2022-04-18] MEDS: AZITHROMYCIN INJ 500 MG in SODIUM CHLORIDE 0.9% 250 ML IV SCH (09:45)
[2022-04-18] MEDS: PRENATAL VITAMIN TABLET PO SCH (09:45)
[2022-04-18] MEDS: CITALOPRAM HYDROBROMIDE 20 MG TABLET PO SCH (09:45)
[2022-04-18] MEDS: CYANOCOBALAMIN 500 MCG TABLET PO SCH (09:45)
[2022-04-18] MEDS: ENOXAPARIN 40 MG/0.4 ML SYRINGE SUBQ SCH ×2 (09:46→10:03)
[2022-04-18] MEDS: DOCUSATE SODIUM 250 MG CAPSULE PO SCH (09:46)
[2022-04-18] MEDS: guaiFENesin 600 MG TABLET PO SCH ×2 (09:46→20:44)
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
[2022-04-18 12:17] LABS: BASOPHILS % (AUTO) 0.1 %; EOSINOPHILS % (AUTO) 0.2 %; HCT - HEMATOCRIT 44.2 % (37.0-47.0); HGB - HEMOGLOBIN 14.5 g/dL (12.0-16.0); LYMPHOCYTES # (AUTO) 0.7 10^3/uL (1.5-3.5); LYMPHOCYTES % (AUTO) 5.5 %; MEAN CORPUSCULAR HEMOGLOBIN 33.8 pg (27.0-31.0); MEAN CORPUSCULAR HGB CONC 32.8 g/dL (32.0-36.0); MEAN PLATELET VOLUME 9.9 fL (7.9-10.8); MONOCYTES # (AUTO) 0.5 10^3/uL (0.0-1.0); MONOCYTES % (AUTO) 3.6 %; NEUTROPHILS # (AUTO) 11.4 10^3/uL (1.5-6.6); PLT - PLATELET COUNT 375 10^3/uL (130-450); RED BLOOD COUNT 4.29 10^6/uL (4.20-5.40); RED CELL DISTRIBUTION WIDTH 12.8 % (12.0-15.0); WHITE BLOOD COUNT 12.7 x10^3/uL (4.8-10.8)
[2022-04-18 12:26] LABS: CALCIUM 9.2 mg/dL (8.5-10.3); CREATININE 0.8 mg/dL (0.4-1.0); POTASSIUM 4.6 mmol/L (3.5-5.0)
--- NOTE | 2022-04-18 14:27 | XRAY Report ---
PROCEDURE: Chest 1 View X-Ray INDICATIONS: continued cough, sob in COPD TECHNIQUE: One view of the chest was acquired. COMPARISON: 04/13/2022 FINDINGS: Surgical changes and devices: None. Lungs and pleura: There is hyperinflation and chronic interstitial changes without focal infiltrate, pneumothorax or pleural effusion. Mediastinum: Mediastinal contours appear normal. Heart size is normal. Bones and chest wall: No suspicious bony lesions. Overlying soft tissues appear unremarkable. Gene ralized decreased osseous mineralization present. IMPRESSION: Pulmonary hyperinflation and chronic interstitial changes, similar to the prior exam Reviewed by: Nba Topete MD on 04/18/2022 1:26 PM [facility]DT Approved by: Nba Topete MD on 04/18/2022 1:26 PM [facility] Station ID: [id number]
[2022-04-18] MEDS: atenoloL 25 MG TABLET PO SCH (16:44)
[2022-04-18] MEDS: FLUTICASONE NASAL SPRAY NAS SCH (16:46)
[2022-04-18] MEDS: MONTELUKAST 10 MG TABLET PO SCH (20:44)
[2022-04-18] MEDS: QUEtiapine 25 MG TABLET PO SCH (20:44)
[2022-04-18] MEDS: ALBUTEROL NEB 2.5 MG/3 ML INH PRN (22:52)
[2022-04-19] MEDS: ALPRAZolam 0.25 MG TABLET PO PRN ×2 (03:30→23:36)
[2022-04-19] MEDS: SODIUM CHLORIDE FLUSH 0.9% 10 ML SYRINGE IVP PRN (03:32)
[2022-04-19 05:00] LABS: BASOPHILS % (AUTO) 0.2 %; HCT - HEMATOCRIT 41.6 % (37.0-47.0); HGB - HEMOGLOBIN 13.6 g/dL (12.0-16.0); LYMPHOCYTES # (AUTO) 1.4 10^3/uL (1.5-3.5); LYMPHOCYTES % (AUTO) 11.5 %; MEAN CORPUSCULAR HEMOGLOBIN 33.6 pg (27.0-31.0); MEAN CORPUSCULAR HGB CONC 32.7 g/dL (32.0-36.0); MEAN CORPUSCULAR VOLUME 102.7 fL (81.0-99.0); MEAN PLATELET VOLUME 9.8 fL (7.9-10.8); MONOCYTES # (AUTO) 1.1 10^3/uL (0.0-1.0); MONOCYTES % (AUTO) 9.3 %; NEUTROPHILS # (AUTO) 9.5 10^3/uL (1.5-6.6); NEUTROPHILS % (AUTO) 78.3 %; PLT - PLATELET COUNT 368 10^3/uL (130-450); RED BLOOD COUNT 4.05 10^6/uL (4.20-5.40); RED CELL DISTRIBUTION WIDTH 12.6 % (12.0-15.0); WHITE BLOOD COUNT 12.1 x10^3/uL (4.8-10.8)
[2022-04-19 05:09] LABS: CREATININE 0.8 mg/dL (0.4-1.0); POTASSIUM 4.4 mmol/L (3.5-5.0)
[2022-04-19] MEDS: IPRATROPIUM/ALBUTEROL 3 ML NEB INH SCH ×4 (06:23→19:52)
[2022-04-19] MEDS: BUDESONIDE 0.5 MG/2 ML NEB INH SCH ×2 (06:23→19:52)
[2022-04-19] MEDS: LEVOTHYROXINE 100 MCG TABLET PO SCH (06:47)
[2022-04-19] MEDS: methylPREDNISolone SUCCINATE 40 MG/ML VIAL IVP SCH ×3 (06:47→21:08)
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
[2022-04-19] MEDS ORDERED: atenoloL 25 MG TABLET PO SCH (09:00)
[2022-04-19] MEDS: ENOXAPARIN 40 MG/0.4 ML SYRINGE SUBQ SCH (10:35)
[2022-04-19] MEDS: DOCUSATE SODIUM 250 MG CAPSULE PO SCH ×2 (10:35→16:56)
[2022-04-19] MEDS: CITALOPRAM HYDROBROMIDE 20 MG TABLET PO SCH ×2 (10:35→16:49)
[2022-04-19] MEDS: guaiFENesin 600 MG TABLET PO SCH ×2 (10:35→21:05)
[2022-04-19] MEDS: FLUTICASONE NASAL SPRAY NAS SCH ×2 (10:35→16:00)
[2022-04-19] MEDS: CYANOCOBALAMIN 500 MCG TABLET PO SCH ×2 (10:35→16:54)
[2022-04-19] MEDS: PRENATAL VITAMIN TABLET PO SCH ×2 (10:35→16:51)
[2022-04-19] MEDS: atenoloL 25 MG TABLET PO SCH ×2 (10:35→16:48)
[2022-04-19] MEDS: AZITHROMYCIN INJ 500 MG in SODIUM CHLORIDE 0.9% 250 ML IV SCH (10:35)
[2022-04-19] MEDS: SODIUM CHLORIDE FLUSH 0.9% 10 ML SYRINGE IVP SCH ×3 (10:36→23:49)
--- NOTE | 2022-04-19 13:05 | Discharge Plan ---
Discharge Plan Problem Reviewed?: Yes Diet: Regular Activity Restrictions: No Restrictions Shower Restrictions: No Driving Restrictions: No No Smoking: If you smoke, Please STOP! Call for help. Disposition: Home, Self Care Condition: Fair Prescriptions: Loratadine [Claritin] 10 mg PO DAILY #30 tab Fluticasone [Flonase] 2 sprays JONO HS #1 each Albuterol Sulf [Ventolin Hfa Inhaler] 1 - 2 puffs IH Q4H PRN #1 each PRN Reason: Bronchodialation Health Concerns: You came to the emergency room because you were experiencing severe shortness of breath, had pursed lip breathing, and difficulty speaking. You have a history of COPD, and had PFTs done at this hospital in 2013, the results indicated moderate COPD at the time. When you came to the ED, you reported worsening of your shortness of breath since October of this year after exposure to [employer]. You had a 7 day stay at this hospital. During your stay, we treated your COPD flare-up, performed a walking oxygen saturation trial in order to evaluate you for eligibility for home oxygen through medicaid, and managed your previously diagnosed hypothyroidism, anxiety, depression, and insomnia. You received education about the benefits of quitting smoking. You are being sent home with refills for albuterol, loratidine, and fluticasone. Respiratory therapy has deemed you eligible for home oxygen therapy through medicaid. Plan of Treatment: 1. Please see your primary care provider for follow up. I would like for you to see DIRK Elliott in the next 1 to 2 weeks. 2. Please see your director security risk management for follow up. I would like for you to see Nina Cooney APRN, in the next 1 to 2 weeks. You case was discussed with her on 04/19 and she feels like the medicines we are sending you home with are exactly what you need. 3. Take your home medicines as usual. 4. Please continue to take the new medications prescribed to you during your hospitalization as directed. Assessment: Patient states that she has a photographic memory and agrees to follow discharge instructions and to continue her medication regimen at home. Follow-up with: Nichelle Wilkes PA [Primary Care Provider] -
--- NOTE | 2022-04-19 14:05 | DISCHARGE SUMMARY ---
Discharge Summary Admit Date: 04/13/22 Discharge Date: 04/20/22 Discharging Provider: Mame Stout MD Primary Care Provider: DIRK Sharma Code Status: Attempt Resuscitation Condition at Discharge: Fair Discharge Disposition: 01 Home, Self Care - ALLERGIES Allergies/Adverse Reactions: Allergies Allergy/AdvReac Type Severity Reaction Status Date / Time Sulfa (Sulfonamide Allergy Intermediate Hives Verified 01/05/18 09:22 Antibiotics) Penicillins Allergy Unknown Unknown Verified 01/05/18 09:22 Iodinated Contrast Media Allergy Hives Verified 01/05/18 09:22 [Iodinated Contrast Media - IV Dye] pinesol Allergy Respiratory Uncoded 04/13/22 09:33 - MEDICATIONS Home Medications: Ambulatory Orders Medication Instructions Recorded Confirmed Atenolol 50 mg ORAL DAILY 02/15/14 04/13/22 Citalopram Hydrobromide [Celexa] 40 mg PO DAILY 02/15/14 04/13/22 Levothyroxine [Synthroid] 100 mcg ORAL QDAC 02/15/14 04/13/22 Hydrocodone/Acetaminophen 1 each PO Q6H PRN #15 tablet 03/10/14 04/13/22 [Hydrocodone-APAP 5-325] ALPRAZolam [Alprazolam] 0.5 mg PO HS 04/13/22 04/13/22 Fluticasone/Salmeterol [Advair 1 each IH Q12H 04/13/22 04/13/22 500-50 Diskus] Ipratropium/Albuterol [Duoneb] 3 ml IH QID PRN 04/13/22 04/13/22 Albuterol Sulf [Ventolin Hfa 1 - 2 puffs IH Q4H PRN #1 each 04/19/22 Inhaler] Fluticasone [Flonase] 2 sprays JONO HS #1 each 04/19/22 Loratadine [Claritin] 10 mg PO DAILY #30 tab 04/19/22 - LABS Result Diagrams: 04/19/22 04:46 04/19/22 04:46 - QUALITY (Female Hip Fx Only) Was patient sent home on osteoporosis medication?: No - FOLLOW UP Follow Up: DIRK Elliott (Primary care provider)
[2022-04-19] MEDS ORDERED: AZITHROMYCIN INJ 500 MG in SODIUM CHLORIDE 0.9% 250 ML IV ONE (16:32)
[2022-04-19] MEDS: BENZOCAINE/MENTHOL LOZENGE MM PRN ×2 (19:16→23:32)
[2022-04-19] MEDS: MONTELUKAST 10 MG TABLET PO SCH (21:07)
[2022-04-19] MEDS: QUEtiapine 25 MG TABLET PO SCH (21:11)
[2022-04-20] MEDS: ALBUTEROL NEB 2.5 MG/3 ML INH PRN (03:58)
[2022-04-20] MEDS: LEVOTHYROXINE 100 MCG TABLET PO SCH (05:36)
[2022-04-20] MEDS: BENZOCAINE/MENTHOL LOZENGE MM PRN ×2 (05:39→13:13)
[2022-04-20] MEDS: BUDESONIDE 0.5 MG/2 ML NEB INH SCH (07:05)
[2022-04-20] MEDS: IPRATROPIUM/ALBUTEROL 3 ML NEB INH SCH ×2 (07:06→13:20)
[2022-04-20] MEDS: PRENATAL VITAMIN TABLET PO SCH (08:11)
[2022-04-20] MEDS: guaiFENesin 600 MG TABLET PO SCH (08:11)
[2022-04-20] MEDS: CYANOCOBALAMIN 500 MCG TABLET PO SCH (08:11)
[2022-04-20] MEDS: DOCUSATE SODIUM 250 MG CAPSULE PO SCH (08:11)
[2022-04-20] MEDS: ENOXAPARIN 40 MG/0.4 ML SYRINGE SUBQ SCH (08:12)
[2022-04-20] MEDS: atenoloL 25 MG TABLET PO SCH (08:12)
[2022-04-20] MEDS: FLUTICASONE NASAL SPRAY NAS SCH (08:12)
[2022-04-20] MEDS: CITALOPRAM HYDROBROMIDE 20 MG TABLET PO SCH (08:12)
[2022-04-20] MEDS: methylPREDNISolone SUCCINATE 40 MG/ML VIAL IVP SCH (08:13)
[2022-04-20] MEDS: SODIUM CHLORIDE FLUSH 0.9% 10 ML SYRINGE IVP SCH (08:14)
--- NOTE | 2022-04-20 14:47 | DISCHARGE SUMMARY ---
Discharge Summary Admit Date: 04/13/22 Discharge Date: 04/20/22 Discharging Provider: Mame Stout MD Primary Care Provider: Nichelle Wilkes PA-C Code Status: Attempt Resuscitation Condition at Discharge: Poor Discharge Disposition: 01 Home, Self Care - DIAGNOSES Admission Diagnoses: 1. Acute respiratory failure with hypoxia 2. COPD exacerbation 3. Tobacco use 4. Hypothyroidism 5. Anxiety and depression 6. Insomnia Discharge Diagnoses with Status of Each Condition: 1. Acute respiratory failure with hypoxia Showed great improvement from the date of her admission (04/13/22). Her oxygen saturation remained in the low to mid 90% range on 2L through nasal cannula. Pt was hypoxic at rest, with room air oxygen sats of 86%. On 2L nasal cannula at rest, her oxygen saturations were 93%. With exertion on 2L per minute through nasal cannula, her oxygen saturations were 90%. I am ordering home oxygen, 2L per minute both at rest and with exertion. 2. COPD exacerbation -Resolved. Sent home with detailed patient education to enforce patient adherence to medication regimen (advair, duoneb, fluticasone, loratadine, albuterol HFA). Advised pt to follow up with primary care as well as aligning checker. Spoke with pulmonologisy managing pt's COPD (DEB Cooney), DEB Cooney remarked that she would not do anything differently. Her last chest x-ray (04/19/22) was unremarkable. Nina Montgomery APRN has been a part of Ms. Ro's care team in the function of aligning checker provider. She expressed surprise that Ms. Ro has been compliant with the pharmacotherapy prescribed to her for COPD exacerbation, since she has refused to do so in the past. DEB Cooney will continue to positively enforce the use of these medications by Ms. Ro after her discharge. 3. Tobacco use - Pt not interested in tobacco cessation, patient education was provided at length. 4. Hypothyroidism - Managed without problems throughout her stay. Advised pt to continue taking previously prescribed levothyroxine as directed. 5. Anxiety and depression - Managed with home medications throughout stay. Advised pt to continue taking previously prescribed citalopram and alprazolam as directed. 6. Insomnia - Managed without problems throughout her stay. Engaged in pt education regarding sleep hygiene. Pt also has alprazolam prescription to use as needed. 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 Pt not receptive to therapy or psychiatric referral to further address this. - HPI History of Present Illness: She is a 66-year-old white female with a history of COPD. Her last PFTs were done at this facility in 2015 and they showed moderate COPD then. Her home medications include at home nebulizer and medications for hypothyroidism, anxiety, depression, and insomnia. On 04/13/22 she presented to the ED with the chief complaint of severe shortness of breath, she displayed pursed lip breathing and difficulty speaking. She explained that she has noticed a worsening of her shortness of breath since October of this year (after exposure to pinesol negative cleaner). Since October of last year, she reports having had 4 courses of antibiotics and 2-week prednisone treatments with each. She states that her condition improves briefly when the courses of treatment are concluded, but fail to resolve altogether, she does not report any specific inciting event or agent other than the Pinesol negative cleaner. She has a aligning checker in [place] (DEB Cooney) and has had PFTs repeated there this year, but reports not knowing the results. She also reports having had an echocardiogram done in [place] this year for an alledged heart murmur, but also does not know the results. At the time of her admission, she reported having one week of worsening shortness of breath despite increasing her at home nebulizer treatments. She continues to smoke, states that she rolls her own cigarettes and uses a filter with each one, she smokes about 10 cigarettes per day. Her cough is chronic, but she denies any change in sputum color or frequency and also denies fevers. In the Ed, she was ordered nebulizers x 3 and received 60mg of oral prednisone; despite the nebulizer treatments, she still shows signs of air hunger and is only saturating at 87% on room air. She was started on 2L of oxygen through a nasal cannula, she tested negative for COVID, her chest x-ray at the time of admission showed possible CHF, but no infiltrates. However, her BNP at the time of admission was 24. She smokes 10 hand rolled cigarettes per day, uses marijuana (smoked and edibles, stated weekly would not quantify exactly) weekly, drinks (stated weekly, would not quantify exactly). - HOSPITAL COURSE Hospital Course: Throughout the course of her stay, her personality was volatile (she was often quite hostile to most staff members), and at times this presented considerable barriers to the delivery of her care. A second chest x-ray was obtained two days prior to her discharge (04/18/22), it was unremarkable. She was mostly adherent to her medication regimen, but demanded antibiotic therapy even though she was told that her chest x-ray was negative. She stated that she knows her own body and wants antibiotics 0n 04/17/2022. On the same day, she declined a CT scan due to her iodine allergy, she understood that declining this could be life- threatening, stating once again that she knows her own body and would only like antibiotics. The CT scan was meant to rule out a pulmonary embolism. Her COPD exacerbation was managed with nebulizer treatments, her shortness of breath was managed with oxygen (2L through a nasal cannula). She was discharged home in fair condition, with home oxygen at 2L to be used both at rest and exertion and extensive education about the importance of smoking cessation and adherence to her medication regimen. Greater than 30 minutes spent on discharge. - ALLERGIES Allergies/Adverse Reactions: Allergies Allergy/AdvReac Type Severity Reaction Status Date / Time Sulfa (Sulfonamide Allergy Intermediate Hives Verified 01/05/18 09:22 Antibiotics) Penicillins Allergy Unknown Unknown Verified 01/05/18 09:22 Iodinated Contrast Media Allergy Hives Verified 01/05/18 09:22 [Iodinated Contrast Media - IV Dye] pinesol Allergy Respiratory Uncoded 04/13/22 09:33 - MEDICATIONS Home Medications: Ambulatory Orders Medication Instructions Recorded Confirmed Atenolol 50 mg ORAL DAILY 02/15/14 04/13/22 Citalopram Hydrobromide [Celexa] 40 mg PO DAILY 02/15/14 04/13/22 Levothyroxine [Synthroid] 100 mcg ORAL QDAC 02/15/14 04/13/22 Hydrocodone/Acetaminophen 1 each PO Q6H PRN #15 tablet 03/10/14 04/13/22 [Hydrocodone-APAP 5-325] ALPRAZolam [Alprazolam] 0.5 mg PO HS 04/13/22 04/13/22 Fluticasone/Salmeterol [Advair 1 each IH Q12H 04/13/22 04/13/22 500-50 Diskus] Ipratropium/Albuterol [Duoneb] 3 ml IH QID PRN 04/13/22 04/13/22 Albuterol Sulf [Ventolin Hfa 1 - 2 puffs IH Q4H PRN #1 each 04/19/22 Inhaler] Fluticasone [Flonase] 2 sprays JONO HS #1 each 04/19/22 Loratadine [Claritin] 10 mg PO DAILY #30 tab 04/19/22 - PHYSICAL EXAM AT DISCHARGE General Appearance: positive: No acute distress Eyes Bilateral: positive: Normal inspection ENT: positive: ENT inspection nml Neck: positive: Nml inspection Respiratory: positive: Chest non-tender, Wheezes (Diffuse.), Other (Still showing high effort of breathing, coughing frequently. ) Cardiovascular: positive: Regular rate & rhythm Abdomen: positive: Non-tender Back: positive: Nml inspection Skin: positive: Color nml Extremities: positive: Non-tender, Nml appearance Neurologic/Psychiatric: positive: Oriented x3, Other (Mood agitated. Affect is labile.) - LABS Result Diagrams: 04/19/22 04:46 04/19/22 04:46 - FOLLOW UP Follow Up: Follow up with: PCP: Nichelle Wilkes PA-C Pulmonology: DEB Cooney - TIME SPENT Time Spent in Discharge (Minutes): 35 (Greater than 35 minutes spent on discharge.)
[2022-04-20 14:50] VITALS: BP 130/66
== END 2022-04-20 03:35 | disposition home or self-care (01) | DRG 189 ==
LOC: ED 09:20 → MS2 15:19
PROVIDERS: ADMIT Internal Medicine; ATTEND Specialist
DX: J96.01 Acute respiratory failure with hypoxia (principal); E03.9 Hypothyroidism, unspecified; F41.9 Anxiety disorder, unspecified; I10 Essential (primary) hypertension; Z20.822 Contact with and (suspected) exposure to COVID-19; F32.A Depression, unspecified; G47.00 Insomnia, unspecified; F60.9 Personality disorder, unspecified; F17.210 Nicotine dependence, cigarettes, uncomplicated; J43.9 Emphysema, unspecified; Z79.890 Hormone replacement therapy; Z79.899 Other long term (current) drug therapy; Z82.5 Family history of asthma and other chronic lower respiratory diseases; Z88.0 Allergy status to penicillin; Z88.2 Allergy status to sulfonamides; Z91.041 Radiographic dye allergy status; Z91.048 Other nonmedicinal substance allergy status
CPT/HCPCS: 36415; 71045; 80048; 80053; 82607; 82746; 82803; 83880; 84443; 85025; 87070; 87205; 87635; 93005; 94640; 94761; 99284; 99285; A9270; J1650; J7512; J7626; J8499

== ENCOUNTER 2022-05-17 12:09 | Emergency (ER) | payer MEDICARE ==
--- NOTE | 2022-05-17 13:18 | ED Physician Documentation ---
PD HPI URI - Stated complaint Stated Complaint: SOA/COUGH - Chief complaint Chief Complaint: Resp - History obtained from History obtained from: Patient - History of Present Illness Timing - onset: How many days ago (few) Timing duration: Days (few) Timing details: Gradual onset, Still present (much worse the past day.) Associated symptoms: Fever, Chills, Nasal congestion, Productive cough, Dyspnea (with wheezing) Contributing factors: COPD / asthma. No: Sick contact, Immunocompromised Similar symptoms before: Diagnosis (bronchitis/pneumonia) Recently seen: Not recently seen Review of Systems Constitutional: denies: Fever, Chills Nose: reports: Rhinorrhea / runny nose, Congestion Throat: denies: Sore throat Cardiac: reports: Chest pain / pressure (with coughing). denies: Palpitations Respiratory: reports: Dyspnea, Cough, Wheezing GI: denies: Abdominal Pain, Nausea, Vomiting, Diarrhea Skin: denies: Rash, Lesions Neurologic: reports: Generalized weakness. denies: Focal weakness, Numbness, Near syncope PD PAST MEDICAL HISTORY - Past Medical History Cardiovascular: Hypertension, Arrhythmia Respiratory: Emphysema Endocrine/Autoimmune: HyPOthyroidism GI: None NET SOFTWARE ENGINEER: Breast cancer : None Psych: Depression, Anxiety, Post traumatic stress disorder Musculoskeletal: Chronic back pain Derm: None - Past Surgical History Past Surgical History: Yes General: Colonoscopy /NET SOFTWARE ENGINEER: Hysterectomy, Mastectomy, LEEP (Cervical surgery) HEENT: Tonsil/Adenoidectomy - Present Medications Home Medications: Ambulatory Orders Medication Instructions Recorded Confirmed Atenolol 50 mg ORAL DAILY 02/15/14 04/13/22 Citalopram Hydrobromide [Celexa] 40 mg PO DAILY 02/15/14 04/13/22 Levothyroxine [Synthroid] 100 mcg ORAL QDAC 02/15/14 04/13/22 Hydrocodone/Acetaminophen 1 each PO Q6H PRN #15 tablet 03/10/14 04/13/22 [Hydrocodone-APAP 5-325] ALPRAZolam [Alprazolam] 0.5 mg PO HS 04/13/22 04/13/22 Fluticasone/Salmeterol [Advair 1 each IH Q12H 04/13/22 04/13/22 500-50 Diskus] Ipratropium/Albuterol [Duoneb] 3 ml IH QID PRN 04/13/22 04/13/22 Albuterol Sulf [Ventolin Hfa 1 - 2 puffs IH Q4H PRN #1 each 04/19/22 Inhaler] Fluticasone [Flonase] 2 sprays JONO HS #1 each 04/19/22 Loratadine [Claritin] 10 mg PO DAILY #30 tab 04/19/22 Benzonatate [Tessalon] 100 mg PO TID PRN #20 cap 05/17/22 Doxycycline Hyclate 100 mg PO BID 7 Days #14 cap 05/17/22 dexAMETHasone [Decadron] 4 mg PO DAILY #7 tablet 05/17/22 - Allergies Allergies/Adverse Reactions: Allergies Allergy/AdvReac Type Severity Reaction Status Date / Time Sulfa (Sulfonamide Allergy Intermediate Hives Verified 05/17/22 12:34 Antibiotics) Penicillins Allergy Unknown Unknown Verified 05/17/22 12:34 Iodinated Contrast Media Allergy Hives Verified 05/17/22 12:34 [Iodinated Contrast Media - IV Dye] pinesol Allergy Respiratory Uncoded 05/17/22 12:34 - Social History Does the pt smoke?: Yes Smoking Status: Current every day smoker Does the pt drink ETOH?: Yes Does the pt have substance abuse?: No - POLST Patient has POLST: No PD ED PE NORMAL - Vitals Vital signs reviewed: Yes - General General: Alert and oriented X 3, No acute distress, Well developed/nourished - HEENT HEENT: Pharynx benign - Neck Neck: Supple, no meningeal sign, No adenopathy - Cardiac Cardiac: RRR. No: No murmur (1/6 murmur left chest, hard to hear with wheezing too) - Respiratory Respiratory: No respiratory distress. No: Clear bilaterally (central congestion with diffuse wheezing and some prolonged exp phase. Partial sentence conversational dyspnea. ) - Abdomen Abdomen: Soft, Non tender - Derm Derm: Normal color, Warm and dry - Extremities Extremities: Normal ROM s pain, No edema, No calf tenderness / cord Results - Vitals Vitals: Oxygen O2 Source Room air - Labs Labs: Laboratory Tests 05/17/22 05/17/22 05/17/22 14:00 14:00 14:00 WBC 7.7 RBC 3.90 L Hgb 12.7 Hct 39.8 MCV 102.1 H MCH 32.6 H MCHC 31.9 L RDW 12.7 Plt Count 363 MPV 9.3 Neut # (Auto) 4.8 Lymph # (Auto) 1.9 Toombs # (Auto) 0.8 Eos # (Auto) 0.1 Baso # (Auto) 0.1 Absolute Nucleated RBC 0.00 Nucleated RBC % 0.0 Sodium 138 Potassium 4.2 Chloride 105 Carbon Dioxide 23 Anion Gap 10.0 BUN 13 Creatinine 0.7 Estimated GFR (MDRD) 83 L Glucose 99 Calcium 9.1 Magnesium 1.9 Total Bilirubin 0.4 AST 28 ALT 24 Alkaline Phosphatase 67 B-Natriuretic Peptide 74 Total Protein 7.1 Albumin 4.1 Globulin 3.0 Albumin/Globulin Ratio 1.4 Lipase 24 Nasal Adenovirus (PCR) Nasal B. parapertussis DNA (PCR) Nasal Coronavir 229E PCR Nasal Coronavir HKU1 PCR Nasal Coronavir NL63 PCR Nasal Coronavir OC43 PCR Nasal Enterovir/Rhinovir PCR Nasal Influenza B PCR Nasal Influenza A PCR Nasal Parainfluen 1 PCR Nasal Parainfluen 2 PCR Nasal Parainfluen 3 PCR Nasal Parainfluen 4 PCR Nasal RSV (PCR) Nasal B.pertussis DNA PCR Nasal C.pneumoniae (PCR) Joon Human Metapneumo PCR Nasal M.pneumoniae (PCR) Nasal SARS-CoV-2 (PCR) 05/17/22 15:23 WBC RBC Hgb Hct MCV MCH MCHC RDW Plt Count MPV Neut # (Auto) Lymph # (Auto) Toombs # (Auto) Eos # (Auto) Baso # (Auto) Absolute Nucleated RBC Nucleated RBC % Sodium Potassium Chloride Carbon Dioxide Anion Gap BUN Creatinine Estimated GFR (MDRD) Glucose Calcium Magnesium Total Bilirubin AST ALT Alkaline Phosphatase B-Natriuretic Peptide Total Protein Albumin Globulin Albumin/Globulin Ratio Lipase Nasal Adenovirus (PCR) NOT DETECTED Nasal B. parapertussis DNA (PCR) NOT DETECTED Nasal Coronavir 229E PCR NOT DETECTED Nasal Coronavir HKU1 PCR NOT DETECTED Nasal Coronavir NL63 PCR NOT DETECTED Nasal Coronavir OC43 PCR NOT DETECTED Nasal Enterovir/Rhinovir PCR NOT DETECTED Nasal Influenza B PCR NOT DETECTED Nasal Influenza A PCR NOT DETECTED Nasal Parainfluen 1 PCR NOT DETECTED Nasal Parainfluen 2 PCR NOT DETECTED Nasal Parainfluen 3 PCR NOT DETECTED Nasal Parainfluen 4 PCR NOT DETECTED Nasal RSV (PCR) NOT DETECTED Nasal B.pertussis DNA PCR NOT DETECTED Nasal C.pneumoniae (PCR) NOT DETECTED Jono Human Metapneumo PCR NOT DETECTED Nasal M.pneumoniae (PCR) NOT DETECTED Nasal SARS-CoV-2 (PCR) DETECTED A - Rads (name of study) chest xray Radiology: Prelim report reviewed (no acute cardiopulmonary abnormality), See rad report PD MEDICAL DECISION MAKING - ED course Complexity details: reviewed results, re-evaluated patient (improved with neb/meds here. ), considered differential, d/w patient Departure - Departure Disposition: Home, Self Care Clinical Impression: Moderate COPD (chronic obstructive pulmonary disease), Lower resp. tract infection Dyspnea Qualifiers: Dyspnea type: shortness of breath Qualified Code(s): R06.02 - Shortness of breath Condition: Stable Record reviewed to determine appropriate education?: Yes Instructions: ED COPD Flare, ED URI Viral W Wheezing Follow-Up: Nichelle Wilkes PA [Primary Care Provider] - Prescriptions: dexAMETHasone [Decadron] 4 mg PO DAILY #7 tablet Doxycycline Hyclate 100 mg PO BID 7 Days #14 cap Benzonatate [Tessalon] 100 mg PO TID PRN #20 cap PRN Reason: Cough Comments: Your chest x-ray is clear without any signs of pneumonia. Your respiratory/nasal PCR test for viral illnesses was positive for COVID but this may be just a residual positive from your infection a couple of weeks ago. It was negative for other viruses such as RSV and enterovirus and flu. Concern with your COPD flareup can be a bacterial infection so I would go with an antibiotic in case of bacterial. Doxycycline twice daily for a week. Also use a steroid Decadron orally daily for a week. Add benzonatate if needed for cough. Continue with your DuoNeb nebulizers 4 times daily for the next week or so. Extra times if needed. Continue your oxygen at home at night and when needed through the day. Consider it regularly for the next day or 2. Return if worsening symptoms generally. I would anticipate improvement over the next several days. I sent your prescriptions to [facility] in [place]. Discharge Date/Time: 05/17/22 16:45
[2022-05-17] MEDS ORDERED: IPRATROPIUM/ALBUTEROL 3 ML NEB INH STA (13:40)
[2022-05-17] MEDS ORDERED: BENZONATATE 100 MG CAPSULE PO STA (13:41)
[2022-05-17] MEDS ORDERED: DEXAMETHASONE 10 MG/ML VIAL IVP STA (13:41)
[2022-05-17 14:06] LABS: BASOPHILS # (AUTO) 0.1 10^3/uL (0.0-0.1); BASOPHILS % (AUTO) 1.6 %; EOSINOPHILS # (AUTO) 0.1 10^3/uL (0.0-0.7); EOSINOPHILS % (AUTO) 1.6 %; HCT - HEMATOCRIT 39.8 % (37.0-47.0); HGB - HEMOGLOBIN 12.7 g/dL (12.0-16.0); LYMPHOCYTES # (AUTO) 1.9 10^3/uL (1.5-3.5); LYMPHOCYTES % (AUTO) 24.5 %; MEAN CORPUSCULAR HEMOGLOBIN 32.6 pg (27.0-31.0); MEAN CORPUSCULAR HGB CONC 31.9 g/dL (32.0-36.0); MEAN CORPUSCULAR VOLUME 102.1 fL (81.0-99.0); MEAN PLATELET VOLUME 9.3 fL (7.9-10.8); MONOCYTES # (AUTO) 0.8 10^3/uL (0.0-1.0); MONOCYTES % (AUTO) 9.7 %; NEUTROPHILS # (AUTO) 4.8 10^3/uL (1.5-6.6); NEUTROPHILS % (AUTO) 62.1 %; PLT - PLATELET COUNT 363 10^3/uL (130-450); RED CELL DISTRIBUTION WIDTH 12.7 % (12.0-15.0); WHITE BLOOD COUNT 7.7 x10^3/uL (4.8-10.8)
--- NOTE | 2022-05-17 14:07 | XRAY Report ---
PROCEDURE: Chest 1 View X-Ray INDICATIONS: chest pain TECHNIQUE: One view of the chest was acquired. COMPARISON: CXR 04/18/2022. FINDINGS: Surgical changes and devices: None. Lungs and pleura: No pleural effusions or pneumothorax. Lungs are clear. Mediastinum: Mediastinal contours appear unchanged. Heart size is normal. Bones and chest wall: No suspicious bony lesions. Overlying soft tissues appear unremarkable. IMPRESSION: No acute cardiopulmonary abnormality. Reviewed by: Kel Mcmillan MD on 05/17/2022 1:05 PM KUNAL Approved by: Kel Mcmillan MD on 05/17/2022 1:05 PM KUNAL Station ID: [id number]
[2022-05-17 14:20] LABS: ALBUMIN 4.1 g/dL (3.2-5.5); ALBUMIN/GLOBULIN RATIO 1.4 (1.0-2.2); BILIRUBIN,TOTAL 0.4 mg/dL (0.2-1.0); CALCIUM 9.1 mg/dL (8.5-10.3); CREATININE 0.7 mg/dL (0.4-1.0); MAGNESIUM 1.9 mg/dL (1.7-2.8); POTASSIUM 4.2 mmol/L (3.5-5.0); TOTAL PROTEIN 7.1 g/dL (6.7-8.2)
[2022-05-17] MEDS ORDERED: ALBUTEROL NEB 2.5 MG/3 ML INH STA (15:05)
[2022-05-17] MEDS ORDERED: DOXYCYCLINE 100 MG TABLET PO STA (15:08)
[2022-05-17 16:15] LABS: B. PARAPERTUSSIS- RESP PCR PAN NOT DETECTED; B. PERTUSSIS- RESP PCR PANEL NOT DETECTED; CORONAVIRUS 229E-RESP PCR NOT DETECTED; CORONAVIRUS HKU1-RESP PCR NOT DETECTED; CORONAVIRUS NL63-RESP PCR NOT DETECTED; CORONAVIRUS OC43-RESP PCR NOT DETECTED; HUMAN METAPNEUMOVIRUS NOT DETECTED; INFLUENZA A- RESP PCR PANEL NOT DETECTED; INFLUENZA B - RESP PCR PANEL NOT DETECTED; PARAINFLUENZA VIRUS 1 NOT DETECTED; PARAINFLUENZA VIRUS 2 NOT DETECTED; PARAINFLUENZA VIRUS 3 NOT DETECTED; PARAINFLUENZA VIRUS 4 NOT DETECTED; RHINOVIRUS/ENTEROVIRUS NOT DETECTED; RSV- RESP PCR PANEL NOT DETECTED; SARS-CoV-2 -RESP PCR PANEL DETECTED
[2022-05-17 16:16] LABS: C. PNEUMONIAE- RESP PCR PANEL NOT DETECTED; M. PNEUMONIAE- RESP PCR PANEL NOT DETECTED
[2022-05-17 16:33] VITALS: BP 131/104
== END 2022-05-17 16:45 | disposition home or self-care (01) ==
LOC: ED 12:09
DX: U07.1 COVID-19 (principal); J44.0 Chronic obstructive pulmonary disease with (acute) lower respiratory infection; I10 Essential (primary) hypertension; F17.200 Nicotine dependence, unspecified, uncomplicated
CPT/HCPCS: 36415; 71045; 80053; 83690; 83735; 83880; 85025; 87633; 94640; 94664; 96374; 99283; 99284; A9270

== ENCOUNTER 2022-05-23 09:12 | Outpatient (CLI) | payer MEDICARE | END 2022-05-23 09:13 | disposition left against medical advice (07) | LOC: EMS 09:12 | DX: R06.00 Dyspnea, unspecified (principal) ==

== ENCOUNTER 2022-06-11 04:28 | Outpatient (CLI) | payer MEDICARE | END 2022-06-11 04:29 | disposition critical access hospital (66) | LOC: EMS 04:28 | DX: R06.02 Shortness of breath (principal); R46.4 Slowness and poor responsiveness; R05.9 Cough, unspecified; R53.1 Weakness | CPT/HCPCS: A0425; A0427 ==

== ENCOUNTER 2022-06-11 04:47 | Emergency (ER) | payer MEDICARE ==
[2022-06-11] MEDS ORDERED: ALBUTEROL NEB 2.5 MG/3 ML INH STA ×2 (04:53→05:37)
[2022-06-11] MEDS ORDERED: IPRATROPIUM/ALBUTEROL 3 ML NEB INH STA ×2 (04:53→09:23)
[2022-06-11 05:03] LABS: BASOPHILS # (AUTO) 0.1 10^3/uL (0.0-0.1); BASOPHILS % (AUTO) 0.9 %; EOSINOPHILS # (AUTO) 0.9 10^3/uL (0.0-0.7); EOSINOPHILS % (AUTO) 7.1 %; HCT - HEMATOCRIT 41.6 % (37.0-47.0); HGB - HEMOGLOBIN 13.2 g/dL (12.0-16.0); LYMPHOCYTES # (AUTO) 2.1 10^3/uL (1.5-3.5); LYMPHOCYTES % (AUTO) 17.3 %; MEAN CORPUSCULAR HGB CONC 31.7 g/dL (32.0-36.0); MEAN PLATELET VOLUME 9.7 fL (7.9-10.8); MONOCYTES # (AUTO) 1.1 10^3/uL (0.0-1.0); MONOCYTES % (AUTO) 9.2 %; NEUTROPHILS # (AUTO) 7.9 10^3/uL (1.5-6.6); PLT - PLATELET COUNT 346 10^3/uL (130-450); RED CELL DISTRIBUTION WIDTH 12.9 % (12.0-15.0); WHITE BLOOD COUNT 12.1 x10^3/uL (4.8-10.8)
[2022-06-11] MEDS ORDERED: SODIUM CHLORIDE 0.9% 500 ML IV STA (05:03)
[2022-06-11 05:05] LABS: VBG BASE EXCESS -0.1 mmol/L (-2 - +2); VBG HCO3 28.7 mmol/L (23-28); VBG OXYGEN SATURATION 52.7 % (60-80); VBG PCO2 65.9 mmHg (41-51); VBG PH 7.257 (7.31-7.41); VBG PO2 31.7 mmHg (25-47); VBG TOTAL CO2 30.7 mmol/L (24-29)
--- NOTE | 2022-06-11 05:09 | ED Physician Documentation ---
PD HPI DYSPNEA - Stated complaint Stated Complaint: COPD EX - Chief complaint Chief Complaint: Resp - History obtained from History obtained from: Patient, EMS - Additional information Additional information: Patient is a 66-year-old female with a history of COPD presenting for evaluation of shortness of breath. Her dyspnea has been worsening over the last several weeks. She had tested positive for COVID-19 on May 17 and was seen in the ER at that time for COPD exacerbation. She did better after a course of steroids. However she again has been very short of breath without significant improvement with her neb treatments at home. She has had a productive cough of yellow sputum.When EMS arrived they noted that she was very dyspneic and gave her a DuoNeb treatment along with 125 mg of Solu-Medrol IV.Patient denies fever, chest pain, abdominal pain, leg swelling. Patient has been out of her Advair for 1 month. She had a friend order it from a website but it has not yet arrived.She also went to the grocery store twice yesterday in preparation for Thanksgiving and states that being out in the cold air as well as in the freezer aisle triggered her COPD. Review of Systems Constitutional: denies: Fever Nose: denies: Congestion Cardiac: denies: Chest pain / pressure Respiratory: reports: Dyspnea, Cough GI: denies: Abdominal Pain Musculoskeletal: denies: Extremity swelling Neurologic: denies: Headache PD PAST MEDICAL HISTORY - Past Medical History Past Medical History: Yes Cardiovascular: Hypertension, Arrhythmia Respiratory: COPD, Emphysema Endocrine/Autoimmune: HyPOthyroidism GI: None SCREEN TENDER: Breast cancer : None Psych: Depression, Anxiety, Post traumatic stress disorder Musculoskeletal: Chronic back pain Derm: None - Past Surgical History Past Surgical History: Yes General: Colonoscopy /SCREEN TENDER: Hysterectomy, Mastectomy, LEEP (Cervical surgery) HEENT: Tonsil/Adenoidectomy - Present Medications Home Medications: Ambulatory Orders Medication Instructions Recorded Confirmed Atenolol 50 mg ORAL DAILY 02/15/14 04/13/22 Citalopram Hydrobromide [Celexa] 40 mg PO DAILY 02/15/14 04/13/22 Levothyroxine [Synthroid] 100 mcg ORAL QDAC 02/15/14 04/13/22 Hydrocodone/Acetaminophen 1 each PO Q6H PRN #15 tablet 03/10/14 04/13/22 [Hydrocodone-APAP 5-325] ALPRAZolam [Alprazolam] 0.5 mg PO HS 04/13/22 04/13/22 Fluticasone/Salmeterol [Advair 1 each IH Q12H 04/13/22 04/13/22 500-50 Diskus] Ipratropium/Albuterol [Duoneb] 3 ml IH QID PRN 04/13/22 04/13/22 Albuterol Sulf [Ventolin Hfa 1 - 2 puffs IH Q4H PRN #1 each 04/19/22 Inhaler] Fluticasone [Flonase] 2 sprays JONO HS #1 each 04/19/22 Loratadine [Claritin] 10 mg PO DAILY #30 tab 04/19/22 Benzonatate [Tessalon] 100 mg PO TID PRN #20 cap 05/17/22 Doxycycline Hyclate 100 mg PO BID 7 Days #14 cap 05/17/22 dexAMETHasone [Decadron] 4 mg PO DAILY #7 tablet 05/17/22 Azithromycin [Zithromax] 1 tab PO DAILY #4 tab 06/11/22 Fluticasone/Salmeterol [Advair 1 each IH BID #1 each 06/11/22 500-50 Diskus] predniSONE [Deltasone] 60 mg PO DAILY 5 Days #15 tablet 06/11/22 - Allergies Allergies/Adverse Reactions: Allergies Allergy/AdvReac Type Severity Reaction Status Date / Time Sulfa (Sulfonamide Allergy Intermediate Hives Verified 06/11/22 04:59 Antibiotics) Penicillins Allergy Unknown Unknown Verified 06/11/22 04:59 Iodinated Contrast Media Allergy Hives Verified 06/11/22 04:59 [Iodinated Contrast Media - IV Dye] pinesol Allergy Respiratory Uncoded 06/11/22 04:59 - Social History Does the pt smoke?: Yes Smoking Status: Current every day smoker Does the pt drink ETOH?: Yes Does the pt have substance abuse?: No - Immunizations Immunizations are current?: Yes - POLST Patient has POLST: No PD ED PE NORMAL - General General: Alert and oriented X 3, Well developed/nourished, Other (Distressed, pursed lip breathing, Tachypneic, anxious appearing). No: No acute distress - HEENT HEENT: Atraumatic, Moist mucous membranes, Pharynx benign - Neck Neck: Supple, no meningeal sign - Cardiac Cardiac: No murmur, Other (Tachycardic, regular rhythm) - Respiratory Respiratory: Other (Tachypneic,Pursed lip breathing, diffuse wheezing) - Abdomen Abdomen: Soft, Non tender - Derm Derm: Warm and dry - Extremities Extremities: No edema, No calf tenderness / cord Results - Vitals Vitals: Vital Signs - 24 hr 06/11/22 06/11/22 06/11/22 04:45 05:30 05:40 Temperature 36.8 C Heart Rate 111 H 106 H 107 H Respiratory 27 H 26 H 24 Rate Blood Pressure 135/100 H O2 Saturation 97 If not protocol 2 : Oxygen Flow, liters/minute 06/11/22 05:52 Temperature Heart Rate 102 H Respiratory 24 Rate Blood Pressure 125/95 H O2 Saturation 100 If not protocol 2 : Oxygen Flow, liters/minute Oxygen O2 Source Nasal cannula Oxygen Flow Rate 4 - EKG (time done) 0459 Rate: Rate (enter#) (107) Rhythm: Sinus tachycardia [place]: Normal Ischemia: No: ST elevation c/w ischemia - Labs Labs: Laboratory Tests 06/11/22 06/11/22 06/11/22 04:56 04:56 04:56 WBC 12.1 H RBC 4.00 L Hgb 13.2 Hct 41.6 MCV 104.0 H MCH 33.0 H MCHC 31.7 L RDW 12.9 Plt Count 346 MPV 9.7 Neut # (Auto) 7.9 H Lymph # (Auto) 2.1 [place] # (Auto) 1.1 H Eos # (Auto) 0.9 H Baso # (Auto) 0.1 Absolute Nucleated RBC 0.00 Nucleated RBC % 0.0 Bld Gas Analysis Time Sample Site ABG pH ABG pCO2 ABG pO2 ABG HCO3 ABG Total CO2 ABG O2 Saturation ABG Base Excess Navid Test VBG pH 7.257 L VBG pCO2 65.9 H VBG pO2 31.7 VBG HCO3 28.7 H VBG Total CO2 30.7 H VBG O2 Saturation 52.7 L VBG Base Excess -0.1 O2 Delivery Device O2 Liters/Min Sodium 143 Potassium 4.1 Chloride 104 Carbon Dioxide 28 Anion Gap 11.0 BUN 16 Creatinine 0.9 Estimated GFR (MDRD) 62 L Glucose 100 Calcium 8.7 Total Bilirubin 0.6 AST 57 H ALT 41 Alkaline Phosphatase 69 Total Protein 7.3 Albumin 3.8 Globulin 3.5 Albumin/Globulin Ratio 1.1 Nasal Adenovirus (PCR) Nasal B. parapertussis DNA (PCR) Nasal Coronavir 229E PCR Nasal Coronavir HKU1 PCR Nasal Coronavir NL63 PCR Nasal Coronavir OC43 PCR Nasal Enterovir/Rhinovir PCR Nasal Influenza B PCR Nasal Influenza A PCR Nasal Parainfluen 1 PCR Nasal Parainfluen 2 PCR Nasal Parainfluen 3 PCR Nasal Parainfluen 4 PCR Nasal RSV (PCR) Nasal B.pertussis DNA PCR Nasal C.pneumoniae (PCR) Jono Human Metapneumo PCR Nasal M.pneumoniae (PCR) Nasal SARS-CoV-2 (PCR) 06/11/22 06/11/22 04:56 05:50 WBC RBC Hgb Hct MCV MCH MCHC RDW Plt Count MPV Neut # (Auto) Lymph # (Auto) [place] # (Auto) Eos # (Auto) Baso # (Auto) Absolute Nucleated RBC Nucleated RBC % Bld Gas Analysis Time 0554 Sample Site RIGHT RADIAL ABG pH 7.30 L ABG pCO2 44 ABG pO2 176 H* ABG HCO3 21.0 L ABG Total CO2 22.4 ABG O2 Saturation 99 H ABG Base Excess -5.2 L Navid Test POSITIVE VBG pH VBG pCO2 VBG pO2 VBG HCO3 VBG Total CO2 VBG O2 Saturation VBG Base Excess O2 Delivery Device SIMPLE MASK O2 Liters/Min 10.00 Sodium Potassium Chloride Carbon Dioxide Anion Gap BUN Creatinine Estimated GFR (MDRD) Glucose Calcium Total Bilirubin AST ALT Alkaline Phosphatase Total Protein Albumin Globulin Albumin/Globulin Ratio Nasal Adenovirus (PCR) NOT DETECTED Nasal B. parapertussis DNA (PCR) NOT DETECTED Nasal Coronavir 229E PCR NOT DETECTED Nasal Coronavir HKU1 PCR NOT DETECTED Nasal Coronavir NL63 PCR NOT DETECTED Nasal Coronavir OC43 PCR NOT DETECTED Nasal Enterovir/Rhinovir PCR NOT DETECTED Nasal Influenza B PCR NOT DETECTED Nasal Influenza A PCR NOT DETECTED Nasal Parainfluen 1 PCR NOT DETECTED Nasal Parainfluen 2 PCR NOT DETECTED Nasal Parainfluen 3 PCR NOT DETECTED Nasal Parainfluen 4 PCR NOT DETECTED Nasal RSV (PCR) NOT DETECTED Nasal B.pertussis DNA PCR NOT DETECTED Nasal C.pneumoniae (PCR) NOT DETECTED Jono Human Metapneumo PCR NOT DETECTED Nasal M.pneumoniae (PCR) NOT DETECTED Nasal SARS-CoV-2 (PCR) NOT DETECTED PD MEDICAL DECISION MAKING - ED course Complexity details: reviewed results, re-evaluated patient, d/w patient ED course: Patient presenting for evaluation of shortness of breath. Has a history of COPD. Diffuse wheezing on exam. Very tachypneic. Patient received 3 neb tr eatments with significant improvement. She had already received IV steroids from EMS.I do not see signs of pneumonia and her labs were reviewed.I did offer further observation in the hospital but patient would like to go home. She was able to get to the bedside commodeAnd feels comfortable with her breathing at its current state.I will give her a dose of oral steroids as well as I am unsure if she will make it to the pharmacy today given the holiday. I have also started her on azithromycin due to increased dyspnea and sputum production For COPD coverage.Patient counseled on need for close follow-up with her pulmonary specialistAnd advised on concerning symptoms to return for. 0635 - Patient was able to get up to the bedside commode and reports feeling that her breathing is improved. She continues to have diffuse wheezing but does not appear as labored with her breathing and is not as tachypneic. She is Quite talkative And maintaining oxygenation on 2 L.I did offer Observation in the hospital for COPD Given continued symptoms after 3 nebs here (+1 from EMS). However patient is adamant that she does not want to be admitted to the hospital. She reports feeling that her breathing has improved and that she is able to manage her symptoms at home. Departure - Departure Disposition: 01 Home, Self Care Clinical Impression: COPD exacerbation Condition: Good Instructions: ED COPD Flare Follow-Up: CHARLIE REYES [Other] Prescriptions: Fluticasone/Salmeterol [Advair 500-50 Diskus] 1 each IH BID #1 each predniSONE [Deltasone] 60 mg PO DAILY 5 Days #15 tablet Azithromycin [Zithromax] 1 tab PO DAILY #4 tab Comments: I have sent prescriptions for Oral steroids and an antibiotic to [facility] in [place]. I have also sent a prescription for your Advair inhaler to [facility]. It is important that you use The Advair as directed.Please continue with nebulizer treatments at home with albuterol as needed. If you have any worsening symptoms please return to the emergency department.
[2022-06-11 05:16] LABS: ALBUMIN 3.8 g/dL (3.2-5.5); ALBUMIN/GLOBULIN RATIO 1.1 (1.0-2.2); BILIRUBIN,TOTAL 0.6 mg/dL (0.2-1.0); CALCIUM 8.7 mg/dL (8.5-10.3); CREATININE 0.9 mg/dL (0.4-1.0); POTASSIUM 4.1 mmol/L (3.5-5.0); TOTAL PROTEIN 7.3 g/dL (6.7-8.2)
[2022-06-11 05:57] LABS: ABG PCO2 44 mmHg (34-45); ABG TCO2 22.4 MMOL/L (21.0-29.0)
[2022-06-11 05:58] LABS: ABG BASE EXCESS -5.2 mmol/L (-2.0-3.0); ABG OXYGEN SATURATION 99 % (94-98); ALLEN TEST POSITIVE
[2022-06-11 05:59] LABS: ABG PO2 176 mmHg (80-100)
[2022-06-11 06:01] LABS: B. PARAPERTUSSIS- RESP PCR PAN NOT DETECTED; B. PERTUSSIS- RESP PCR PANEL NOT DETECTED; C. PNEUMONIAE- RESP PCR PANEL NOT DETECTED; CORONAVIRUS 229E-RESP PCR NOT DETECTED; CORONAVIRUS HKU1-RESP PCR NOT DETECTED; CORONAVIRUS NL63-RESP PCR NOT DETECTED; CORONAVIRUS OC43-RESP PCR NOT DETECTED; HUMAN METAPNEUMOVIRUS NOT DETECTED; INFLUENZA A- RESP PCR PANEL NOT DETECTED; INFLUENZA B - RESP PCR PANEL NOT DETECTED; M. PNEUMONIAE- RESP PCR PANEL NOT DETECTED; PARAINFLUENZA VIRUS 1 NOT DETECTED; PARAINFLUENZA VIRUS 2 NOT DETECTED; PARAINFLUENZA VIRUS 3 NOT DETECTED; PARAINFLUENZA VIRUS 4 NOT DETECTED; RHINOVIRUS/ENTEROVIRUS NOT DETECTED; RSV- RESP PCR PANEL NOT DETECTED; SARS-CoV-2 -RESP PCR PANEL NOT DETECTED
[2022-06-11] MEDS ORDERED: predniSONE 20 MG TABLET PO STA (06:34)
[2022-06-11] MEDS ORDERED: AZITHROMYCIN 250 MG TABLET PO STA (06:43)
[2022-06-11] MEDS ORDERED: ACETAMINOPHEN 325 MG TABLET PO STA (09:02)
--- NOTE | 2022-06-11 09:06 | XRAY Report ---
PROCEDURE: Chest 1 View X-Ray INDICATIONS: Shortness of breath TECHNIQUE: One view of the chest was acquired. COMPARISON: 05/17/2022, 04/18/2022, 04/13/2022 FINDINGS: Surgical changes and devices: None. Lungs and pleura: No pleural effusions or pneumothorax. Lungs are clear. Mediastinum: Mediastinal contours appear normal. Heart size is normal. Bones and chest wall: No suspicious bony lesions. Age-appropriate degenerative changes are seen. Overlying soft tissues appear unremarkable. IMPRESSION: Normal portable chest, stable from prior. Note: No significant discrepancy from the preliminary report. Reviewed by: Pablo Silver MD on 06/11/2022 8:05 AM [facility] Approved by: Pablo Silver MD on 06/11/2022 8:05 AM [facility] Station ID: [id number]
[2022-06-11 10:27] VITALS: BP 146/78
== END 2022-06-11 10:25 | disposition home or self-care (01) ==
LOC: EDUNIT# → ED 04:47
DX: J44.1 Chronic obstructive pulmonary disease with (acute) exacerbation (principal); F17.200 Nicotine dependence, unspecified, uncomplicated
CPT/HCPCS: 36415; 36600; 71045; 80053; 82803; 85025; 87633; 93005; 94640; 99284; 99285; A9270; J7512

== ENCOUNTER 2022-09-16 08:00 | Outpatient (CLI) | payer MEDICARE ==
--- NOTE | 2022-09-17 15:36 | XRAY Report ---
PROCEDURE: Chest 2 View X-Ray INDICATIONS: COPD EXACERBATED TECHNIQUE: 2 views of the chest were acquired. COMPARISON: None. FINDINGS: Surgical changes and devices: None. Lungs and pleura: No pleural effusions or pneumothorax. Lungs are clear. Lungs are hyperinflated c onsistent with COPD. Mediastinum: Mediastinal contours are normal. Heart size is normal. Bones and chest wall: No suspicious bony abnormalities. Soft tissues appear unremarkable. IMPRESSION: No acute pulmonary process. Reviewed by: Mary Velasquez MD on 09/17/2022 3:34 PM PST Approved by: Mary Velasquez MD on 09/17/2022 3:34 PM PST Station ID: [id number]
== END 2022-09-16 23:59 | disposition home or self-care (01) ==
LOC: DI.S 08:00
PROVIDERS: ATTEND Physician Assistant
DX: J44.1 Chronic obstructive pulmonary disease with (acute) exacerbation (principal)

== ENCOUNTER 2022-11-10 14:11 | Emergency (ER) | payer MEDICARE ==
[2022-11-10] MEDS ORDERED: HYDROmorphone 1 MG/ML CARPUJECT IVP STA (14:47)
--- NOTE | 2022-11-10 14:48 | ED Physician Documentation ---
PD HPI UPPER EXT INJURY - Stated complaint Stated Complaint: FALL,R WRIST INJ - Chief complaint Chief Complaint: Trauma Ext - History obtained from History obtained from: Patient - Additonal information Additional information: 66-year-old woman with COPD had a trip and fall while looking at the [place] at around 10 PM last night. She fell in a hole, hit her left side of the head on the ground and smacked the wrist very hard which is significantly painful. No other injuries. PD PAST MEDICAL HISTORY - Past Medical History Past Medical History: Yes Cardiovascular: Hypertension, Arrhythmia Respiratory: COPD, Emphysema Neuro: None Endocrine/Autoimmune: HyPOthyroidism GI: None COLOR MATCHER: Breast cancer : None HEENT: None Psych: Depression, Anxiety, Post traumatic stress disorder Musculoskeletal: Chronic back pain Derm: None - Past Surgical History Past Surgical History: Yes General: Colonoscopy /COLOR MATCHER: Hysterectomy, Mastectomy, LEEP (Cervical surgery) HEENT: Tonsil/Adenoidectomy - Present Medications Home Medications: Ambulatory Orders Medication Instructions Recorded Confirmed Atenolol 50 mg ORAL DAILY 02/15/14 04/13/22 Citalopram Hydrobromide [Celexa] 40 mg PO DAILY 02/15/14 04/13/22 Levothyroxine [Synthroid] 100 mcg ORAL QDAC 02/15/14 04/13/22 Hydrocodone/Acetaminophen 1 each PO Q6H PRN #15 tablet 03/10/14 04/13/22 [Hydrocodone-APAP 5-325] ALPRAZolam [Alprazolam] 0.5 mg PO HS 04/13/22 04/13/22 Fluticasone/Salmeterol [Advair 1 each IH Q12H 04/13/22 04/13/22 500-50 Diskus] Ipratropium/Albuterol [Duoneb] 3 ml IH QID PRN 04/13/22 04/13/22 Albuterol Sulf [Ventolin Hfa 1 - 2 puffs IH Q4H PRN #1 each 04/19/22 Inhaler] Fluticasone [Flonase] 2 sprays JONO HS #1 each 04/19/22 Loratadine [Claritin] 10 mg PO DAILY #30 tab 04/19/22 Benzonatate [Tessalon] 100 mg PO TID PRN #20 cap 05/17/22 Doxycycline Hyclate 100 mg PO BID 7 Days #14 cap 05/17/22 dexAMETHasone [Decadron] 4 mg PO DAILY #7 tablet 05/17/22 Azithromycin [Zithromax] 1 tab PO DAILY #4 tab 06/11/22 Fluticasone/Salmeterol [Advair 1 each IH BID #1 each 06/11/22 500-50 Diskus] predniSONE [Deltasone] 60 mg PO DAILY 5 Days #15 tablet 06/11/22 HYDROcod/ACETAM 5/325 [[place] 5/325] 1 - 2 tab PO Q6H PRN #15 tablet 11/10/22 - Allergies Allergies/Adverse Reactions: Allergies Allergy/AdvReac Type Severity Reaction Status Date / Time Sulfa (Sulfonamide Allergy Intermediate Hives Verified 06/11/22 04:59 Antibiotics) Penicillins Allergy Unknown Unknown Verified 06/11/22 04:59 Iodinated Contrast Media Allergy Hives Verified 06/11/22 04:59 [Iodinated Contrast Media - IV Dye] tetracycline Allergy Hives Verified 11/10/22 14:25 pinesol Allergy Respiratory Uncoded 06/11/22 04:59 - Social History Does the pt smoke?: Yes Smoking Status: Current every day smoker Does the pt drink ETOH?: Yes Does the pt have substance abuse?: No - Immunizations Immunizations are current?: Yes - POLST Patient has POLST: No PD ED PE NORMAL - Vitals Vital signs reviewed: Yes - General General: Alert and oriented X 3, No acute distress - HEENT HEENT: PERRL, EOMI - Neck Neck: Supple, no meningeal sign, No bony TTP - Extremities Extremities: Other (There is a deformity of the right wrist consistent with a Colles' fracture. She has normal neurovascular function in the hand and no tenderness about the elbow.) - Neuro Neuro: Alert and oriented X 3, Normal speech Results - Vitals Vitals: Vital Signs - 24 hr 11/10/22 11/10/22 11/10/22 14:25 14:40 14:43 Temperature 37.2 C Heart Rate 73 Respiratory 20 16 16 Rate Blood Pressure 129/56 L O2 Saturation 94 If not protocol : Oxygen Flow, liters/minute 11/10/22 11/10/22 11/10/22 15:17 15:27 15:30 Temperature Heart Rate 85 80 79 Respiratory 17 17 20 Rate Blood Pressure 131/63 H 131/63 H 119/51 L O2 Saturation 99 96 96 If not protocol 3 3 : Oxygen Flow, liters/minute 11/10/22 11/10/22 11/10/22 15:34 15:38 16:09 Temperature Heart Rate 81 82 80 Respiratory 19 18 16 Rate Blood Pressure 116/58 L 122/62 O2 Saturation 96 95 97 If not protocol 2 2 : Oxygen Flow, liters/minute Oxygen O2 Source Nasal cannula - Rads (name of study) Comminuted Colles' fracture with dorsal angulation and displacement on wrist x-ray Relevant Findings:: Final report received, EMP independent interpretation of test 2 view forearm x-ray, postreduction, near anatomic alignment Relevant Findings:: Final report received, EMP independent interpretation of test CT of the head without contrast demonstrates no injuries. Relevant Findings:: Final report received, EMP independent interpretation of test Procedures - Splint (location) - Minor Right wrist Splint applied by: Physician, Tech Type of splint: Fiberglass, Long arm, Sugar tong Other: Sling provided - Reduction Body part reduced: Right, Wrist Fracture or dislocation: Fracture dislocation Reduction aftercare: Alignment improved - Procedural sedation Sedation prep: Informed consent, Time out completed, ASA 3 - severe disease Sedation Medications: propofol (40 mg IVP) Mallampati classification: I Patient status during sedation: Responds to tactile Sedation recovery: Recovered uneventfully Time in sedation (Minutes): 10 PD Medical Decision Making - ED course ED course: 66-year-old woman with COPD had a trip and fall last night hitting her head and she has a comminuted dorsally displaced fracture of the right wrist which was reduced under sedation and splinted with near-anatomic alignment on repeat x- ray. CT of the head was negative. Departure - Departure Disposition: 01 Home, Self Care Clinical Impression: Right wrist fracture Qualifiers: Encounter type: initial encounter Fracture type: closed Qualified Code(s): S62.101A - Fracture of unspecified carpal bone, right wrist, initial encounter for closed fracture Head injury Qualifiers: Encounter type: initial encounter Qualified Code(s): S09.90XA - Unspecified injury of head, initial encounter Condition: Good Record reviewed to determine appropriate education?: Yes Instructions: ED Fx Colles Wrist Redu Requ, ED Head Injury Closed Follow-Up: Orthopedic Care [Provider Group] - Within 1 week Prescriptions: HYDROcod/ACETAM 5/325 [[place] 5/325] 1 - 2 tab PO Q6H PRN #15 tablet PRN Reason: Pain Comments: I sent your prescription electronically to the [facility] in [place]. If pain is mild you can take Tylenol and/or ibuprofen instead. Follow-up with the orthopedic surgeon, call his office tomorrow for the next available appointment. Until then keep the splint on and dry, elevate the wrist is much as possible and you can ice it through the splint as well. I am prescribing a short course of narcotic pain medication for you. These are potentially dangerous and addictive medications that should be used carefully. These medications may constipate you. Take an xtxu-vxs-[id number] stool softener (docusate) twice daily with plenty of water while taking these medications. If you go 24 hours without a bowel movement, take epcq-mlp-jditfxy miralax, per package instructions. Do not drink or drive while taking these medications. If you received narcotic or sedating medications while in the emergency department, do not drive for 24 hours. Store this medication in a safe, secure place and out of reach of children. It is a violation of federal law to give or sell this medication to another person or to use in a manner other than prescribed. The ED will not refill narcotic prescriptions, including prescriptions lost or stolen. To dispose of unwanted medications: 1. [facility] at [address] in [place] has a medication drop box. They accept prescription medications (in pill form) Wednesday through Wednesday 9:00 a.m. to 5:00 p.m. 2. [facility] [employer] accepts prescription medications (in pill form only) for disposal year round. Call for more information. 3. Contact the [facility] for the next [facility] sponsored prescription drug collection event. , [phone], or [phone]; Note that many narcotic pain relievers also contain Tylenol/acetaminophen. Please ensure that your total dose of acetaminophen from all sources does not exceed 3 g (3000 mg) per day.
--- NOTE | 2022-11-10 15:04 | XRAY Report ---
PROCEDURE: Wrist 4 View RT INDICATIONS: Trauma TECHNIQUE: 4 views of the wrist were acquired. COMPARISON: None. FINDINGS: Bones: Impacted, markedly comminuted fracture of the distal radius, extending to the articular surfa ce, with significant displacement. Associated ulnar styloid avulsion. Scaphoid view: Unremarkable. Soft tissues: No suspicious soft tissue calcifications or masses. IMPRESSION: Impacted, markedly comminuted fracture of the distal radius, extending to the articular surface, with significant displacement. Associated ulnar styloid avulsion. Reviewed by: Chan Diaz MD on 11/10/2022 3:03 PM PDT Approved by: Chan Diaz MD on 11/10/2022 3:03 PM PDT Station ID: [id number]
[2022-11-10] MEDS ORDERED: PROPOFOL 200 MG/20 ML VIAL IVP STA (15:17)
--- NOTE | 2022-11-10 15:31 | CT Report ---
PROCEDURE: HEAD WO INDICATIONS: head inj TECHNIQUE: Noncontrast 4.5 mm thick angled axial sections acquired from the foramen magnum to the vertex. For r adiation dose reduction, the following was used: automated exposure control, adjustment of mA and/or kV according to patient size. COMPARISON: None. FINDINGS: Image quality: Excellent. CSF spaces: Basal cisterns are patent. No extra-axial fluid collections. Ventricles are normal in size and shape. Brain: No midline shift. No intracranial masses or hemorrhage. Jose-white matter interface is norm al. Skull and face: Calvarium and visualized facial bones are intact, without suspicious lesions. Sinuses: Visualized sinuses and mastoids are clear. IMPRESSION: No acute intracranial pathology Reviewed by: Chan Diaz MD on 11/10/2022 3:30 PM PDT Approved by: Chan Diaz MD on 11/10/2022 3:30 PM PDT Station ID: [id number]
--- NOTE | 2022-11-10 16:17 | XRAY Report ---
PROCEDURE: Forearm RT INDICATIONS: Postreduction TECHNIQUE: 2 views of the forearm were acquired. COMPARISON: 11/10/2022 . FINDINGS: Bones: Distal radial fracture is now in near anatomic alignment in fiberglass splint. Generalized dec reased osseous mineralization Soft tissues: No suspicious soft tissue calcifications or masses. IMPRESSION: Distal radial fracture in near anatomic alignment, in splint Reviewed by: Nba Topete MD on 11/10/2022 3:16 PM [facility] Approved by: Nba Topete MD on 11/10/2022 3:16 PM [facility] Station ID: [id number]
[2022-11-10 16:57] VITALS: BP 122/62
== END 2022-11-10 16:35 | disposition home or self-care (01) ==
LOC: ED 14:11
DX: S09.90XA Unspecified injury of head, initial encounter (principal); S52.501A Unspecified fracture of the lower end of right radius, initial encounter for closed fracture; W01.0XXA Fall on same level from slipping, tripping and stumbling without subsequent striking against object, initial encounter; Y93.89 Activity, other specified; Y92.007 Garden or yard of unspecified non-institutional (private) residence as the place of occurrence of the external cause; F17.200 Nicotine dependence, unspecified, uncomplicated
CPT/HCPCS: 25635; 70450; 73090; 73110; 96374; 99152; 99283; 99285; J1170; 94770

== ENCOUNTER 2022-11-16 17:24 | Outpatient (CLI) | payer MEDICARE ==
--- NOTE | 2022-11-16 12:59 | XRAY Report ---
PROCEDURE: Wrist 3 View RT INDICATIONS: RIGHT WRIST FRACTURE TECHNIQUE: 3 views of the wrist were acquired. COMPARISON: X-ray wrist 11/10/2022 FINDINGS: Bones: Overlying cast material obscures fine detail evaluation. There is a comminuted and impacted di stal radial fracture with intra-articular extension. Alignment is unchanged compared to prior exam wi th slight dorsal angulation. Ulna styloid fracture is unchanged. Soft tissues: No suspicious soft tissue calcifications or masses. IMPRESSION: Stable alignment of comminuted intra-articular distal radial and ulna fractures. Reviewed by: Mary Velasquez MD on 11/16/2022 12:58 PM PDT Approved by: Mary Velasquez MD on 11/16/2022 12:58 PM PDT Station ID: [id number]
== END 2022-11-16 17:25 | disposition home or self-care (01) ==
LOC: DI.WOS 17:24
PROVIDERS: ATTEND Orthopaedic Surgery
DX: S52.501D Unspecified fracture of the lower end of right radius, subsequent encounter for closed fracture with routine healing (principal); S52.601D Unspecified fracture of lower end of right ulna, subsequent encounter for closed fracture with routine healing

== ENCOUNTER 2022-11-18 06:44 | Day surgery (SDC) | payer MEDICARE ==
[~2022-11-18 06:44] MED LIST: CEFAZOLIN 2G/50ML 0.9% NS 2 GM/50 ML BAG IV ONE; DEXAMETHASONE 10 MG/ML VIAL ONE
[2022-11-18] MEDS ORDERED: LACTATED RINGERS 1,000 ML IV ONE ×2 (06:46→09:21)
[2022-11-18] MEDS ORDERED: BUPIVACAINE 0.25% PF 30 ML VIAL ONE (07:07)
[2022-11-18] MEDS ORDERED: LIDOCAINE MPF 2%-EPI 1:200000 20 ML VIAL ONE (07:07)
[2022-11-18] MEDS ORDERED: ALBUTEROL NEB 2.5 MG/3 ML INH ONE ×2 (07:26→10:06)
[2022-11-18] MEDS ORDERED: PROPOFOL 500 MG/50 ML 500 MG/50 ML VIAL ONE (07:44)
[2022-11-18] MEDS ORDERED: ROPIVACAINE 0.5% PF 20 ML VIAL ONE (07:44)
[2022-11-18] MEDS ORDERED: LIDOCAINE-PF 2% 10 ML AMP SUBQ ONE (07:44)
[2022-11-18] MEDS ORDERED: MIDAZOLAM 2 MG/2 ML VIAL ONE (07:44)
[2022-11-18] MEDS ORDERED: fentaNYL 100 MCG/2 ML VIAL ONE ×2 (07:44→08:59)
--- NOTE | 2022-11-18 08:28 | ANESTHESIA ---
Pre-Anesthesia VS, & Labs - Diagnosis Right distal radius fracture - Procedure closed reduction with perc. pinning Vital Signs: Temp Pulse Resp BP Pulse Ox O2 Flow Rate 37 C 93 24 110/67 94 11/18/22 06:53 11/18/22 06:53 11/18/22 06:53 11/18/22 06:53 11/18/22 06:53 Height: 5 ft Weight (kg): 64 kg Body Mass Index: 27.5 BMI Classification: Overweight - NPO >8 hours Last Fluid Intake: 0530 H20 - Is Patient ?: No Home Medications and Allergies Home Medications: Ambulatory Orders Montelukast [Singulair] 1 tab PO DAILY 11/17/22 oxyCODONE [Roxicodone] 1 tab PO Q6HR PRN 11/17/22 Atenolol 50 mg ORAL DAILY 02/15/14 Citalopram Hydrobromide [Celexa] 40 mg PO DAILY 02/15/14 Levothyroxine [Synthroid] 100 mcg ORAL QDAC 02/15/14 ALPRAZolam [Alprazolam] 0.5 mg PO HS 04/13/22 Ipratropium/Albuterol [Duoneb] 3 ml IH QID PRN 04/13/22 Montelukast [Singulair] 1 tab PO DAILY 11/17/22 oxyCODONE [Roxicodone] 1 tab PO Q6HR PRN 11/17/22 Allergies/Adverse Reactions: Allergies Allergy/AdvReac Type Severity Reaction Status Date / Time Sulfa (Sulfonamide Allergy Intermediate Hives Verified 11/17/22 13:33 Antibiotics) Penicillins Allergy Unknown Unknown Verified 11/17/22 13:33 Iodinated Contrast Media Allergy Hives Verified 11/17/22 13:33 [Iodinated Contrast Media - IV Dye] tetracycline Allergy Hives Verified 11/17/22 13:33 pinesol Allergy Mild Respiratory Uncoded 11/17/22 13:33 Anes History & Medical History - Anesthetic History Anesthesia Complications: reports: No previous complications - Medical History Cardiovascular: reports: Hypertension, Arrhythmia Pulmonary: reports: COPD, Emphysema Gastrointestinal: reports: None Urinary: reports: None Neuro: reports: None Musculoskeletal: reports: Chronic back pain Endocrine/Autoimmune: reports: HyPOthyroidism Blood Disorders: reports: None Skin: reports: None Smoking Status: Current every day smoker Psychosocial: reports: Cannabis (daily use) History of Cancer?: Yes (breast) - Surgical History General: reports: Colonoscopy Eyes Ears Nose Throat (EENT): reports: Tonsil/Adenoidectomy Gynecologic: reports: Hysterectomy, Mastectomy, LEEP (Cervical surgery) Exam General: Alert, Oriented x3, Cooperative, No acute distress Dental: Poor dentition (multiple missing) Mouth Openin Fingerbreadth Neck Mobility: Normal Mallampati classification: II Thyromental Distance: 4-6 cm Respiratory: Decreased breath sounds Cardiovascular: Regular rate, Normal S1, Normal S2, No murmurs Mental/Cognitive Status: Alert/Oriented X3, Normal for patient Plan Anesthesia Type: Axillary Block (right) Consent for Procedure(s) Verified and Reviewed: Yes Code Status: Attempt Resuscitation ASA classification: 3-Severe systemic disease Is this case an emergency?: No
[2022-11-18] MEDS ORDERED: KETAMINE 200 MG/20 ML VIAL ONE (08:40)
[2022-11-18] MEDS ORDERED: LIDOCAINE-MPF 1% 30 ML VIAL ONE (08:49)
[2022-11-18] MEDS ORDERED: LIDOCAINE 1% 50 ML MDV SUBQ ONE ×2 (08:56)
[2022-11-18] MEDS ORDERED: oxyCODONE 5 MG TABLET PO PRN (09:19)
[2022-11-18] MEDS ORDERED: ACETAMINOPHEN 500 MG TABLET PO PRN (09:19)
[2022-11-18] MEDS ORDERED: CELECOXIB 100 MG CAPSULE PO PRN (09:19)
--- NOTE | 2022-11-18 09:20 | OPERATIVE REPORT ---
Operative Report - General Procedure Date: 11/18/22 Planned Procedure: Closed reduction right distal radius with percutaneous pinning Pre-Op Diagnosis: Displaced intra-articular, comminuted fracture right distal radius and ulna Procedure Performed: Closed reduction right distal radius, percutaneous pinning right distal radius with K wires Post Op Diagnosis: Same as preoperative diagnosis - Procedure Note Primary Surgeon: Marco Spencer MD Secondary Surgeon: Yvette Quintero PAC Anesthesia Provider: Dawn Schultz CRNA Anesthesia Technique: Regional block Estimated Blood Loss (mL): 3 Indications: This is a right-handed 67-year-old woman with a history of fall onto outstretched right hand. She sustained a closed fracture of the right distal radius, involving the joint with shortening and angulation by radiographs. She had limited right wrist motion, tenderness to distal radius and ulnar styloid, swelling and mild ecchymosis. Neurovascular was intact. Tendon function intact. Compartments were soft. She does have pertinent comorbidities with advanced chronic obstructive pulmonary disease, chronic cigarette smoking. An informed consent signed, patient in agreement to close reduction with percutaneous pinning of the right distal radius. Findings: Closed, comminuted intra-articular fracture right distal radius with ulnar styloid fracture, associated osteopenia Complications: None - Other Other Information/Narrative: The patient was brought to the operating room and was placed in a supine position with the right arm on a arm extension table. The patient received a regional block with supplemental sedation. The right upper extremity was prepped and draped in a sterile manner in the usual fashion. The C-arm image intensifier was utilized and covered with a sterile drape. A timeout procedure was performed by the entire operating room team and all were in agreement. Finger traps were applied to all 5 fingers and a traction bow as well. Longitudinal traction was applied, direct manipulation of the fracture site over a sterile bump. The C-arm image intensifier showed good alignment and a percutaneous pinning was performed with 0.062 K wires. The bare area of the radial styloid was engaged and pin was inserted from the styloid across the fracture to achieve bicortical fixation. An additional K wire from the radial styloid was also inserted to provide 2 bicortical K wires from the radial styloid. An additional K wires were inserted from the ulnar corner of the distal radius distally. A fourth K wire was then driven from Radial styloid to ulnar aspect of distal radius, paralleling the radiocarpal joint.. Biplanar and oblique imaging was obtained and there was Satisfactory alignment of the fixation and fracture. The K wires were cut external to skin and covered with sterile balls. A well-padded short arm fiberglass splint was applied with gauze padding around the K wires. The patient tolerated the procedure well. No tourniquet was utilized.About 12 cc of 1% lidocaine was injected about the pin sites and fracture. A physician assignment desk assistant was medically necessary to help with prepping and draping, positioning, protection of vital structures, assistance during the procedure including traction, dressing and/or splinting.
[2022-11-18 10:22] VITALS: BP 145/86
[2022-11-18] MEDS ORDERED: ACETAMINOPHEN 500 MG TABLET PO ONE (10:45)
--- NOTE | 2022-11-18 12:30 | XRAY Report ---
PROCEDURE: OR C-Arm Procedure INDICATIONS: CLOSED REDUCTION/PERC PINNING FLUORO TIME: 13 min TECHNIQUE: Multiple fluoroscopic images of the right wrist COMPARISON: 11/16/2022. FINDINGS: Multiple intraoperative fluoroscopic images of the right wrist demonstrate percutaneous pin fixation of comminuted distal right radial fracture. No gross hardware complication seen. IMPRESSION: Intraoperative fluoroscopic support for percutaneous pin fixation of comminuted distal right radial f racture. Please see operative note for further details. Reviewed by: Antonio Guzman MD on 11/18/2022 12:28 PM PDT Approved by: Antonio Guzman MD on 11/18/2022 12:28 PM PDT Station ID: [id number]
--- NOTE | 2022-11-18 14:17 | ANESTHESIA POST OP EVALUATION ---
Anesthesia Post Eval - Post Anesthesia Eval Vitals: Last Vital Signs Temp 36.5 C 11/18/22 10:22 Pulse 76 11/18/22 10:22 Resp 16 11/18/22 10:22 BP 145/86 H 11/18/22 10:22 Pulse Ox 94 11/18/22 10:22 O2 Flow Rate CV Function Including HR & BP: Stable Pain Control: Satisfactory Nausea & Vomiting: Negative Mental Status: Baseline Respiratory Status: Airway Patent, Other (Respiratory status unchanged from preop) Hydration Status: Satisfactory Anesthesia Complications: None
== END 2022-11-18 06:45 | disposition home or self-care (01) ==
LOC: SDS 06:44
PROVIDERS: ATTEND Orthopaedic Surgery
DX: S52.571A Other intraarticular fracture of lower end of right radius, initial encounter for closed fracture (principal); S52.611A Displaced fracture of right ulna styloid process, initial encounter for closed fracture; J43.9 Emphysema, unspecified; F17.200 Nicotine dependence, unspecified, uncomplicated
CPT/HCPCS: 25606; A9270; C1713; J0690; J2795; J3490; J7120